=== PATIENT | male | born 1950 | race Caucasian/White ===

== ENCOUNTER → 2018-09-23 13:06 | Outpatient (CLI) | payer MEDICARE, SELFPAY ==
[2018-09-23 14:35] LABS: Basophils % 0.3 % (0.1-2.0); Eosinophils # 0.4 K/mm3 (0.0-0.4); Eosinophils % 5.9 % (0.1-12.0); Hematocrit 43.7 % (42.0-52.0); Hemoglobin 14.5 g/dL (14.1-18.0); Lymphocytes # 1.6 K/mm3 (0.7-4.5); Lymphocytes % 25.3 % (10-50); Mean Corpuscular HGB Conc 33.2 g/dL (31.8-35.4); Mean Corpuscular Hemoglobin 30.8 pg (27.0-31.2); Mean Corpuscular Volume 92.6 fl (80-94); Mean Platelet Volume 8.5 fl (7.4-10.4); Monocytes # 0.3 K/mm3 (0.1-1.0); Monocytes % 4.2 % (1.7-9.3); Neutrophils # 4.1 K/mm3 (1.8-7.8); Neutrophils % 64.3 % (37.0-80.0); Platelet Count 324 K/mm3 (142-424); Red Blood Count 4.72 M/mm3 (4.60-6.20); Red Cell Distribution Width 12.9 % (11.5-17.5); White Blood Count 6.3 K/mm3 (4.8-10.8)
[2018-09-23 15:36] LABS: Alanine Aminotransferase 32 U/L (12-78); Albumin Level 3.2 gm/dL (3.4-5.0); Albumin/Globulin Ratio 0.9 (1.1-1.8); Alkaline Phosphatase 100 U/L (46-116); Aspartate Amino Transferase 17 U/L (15-37); Bilirubin,Total 0.6 mg/dL (0.2-1.0); Blood Urea Nitrogen 19 mg/dL (7-18); Calcium 8.7 mg/dL (8.5-10.1); Carbon Dioxide 25 mmol/L (21.0-32.0); Chloride 103 mmol/L (98-107); Creatinine,Serum 1.25 mg/dL (0.70-1.30); Estimated Glomerular Filt Rate 58 ml/min (>60); GFR (African American) 70 ML/MIN (>60); Globulin 3.6 gm/dl (1.3-3.2); Glucose 93 mg/dL (74-106); Sodium 139 mmol/L (136-145); Total Protein,Serum 6.8 gm/dL (6.4-8.2)
== END ==
PROVIDERS: Visit Provider Family Medicine
DX: Z51.81 Encounter for therapeutic drug level monitoring (principal); Z79.01 Long term (current) use of anticoagulants
CPT/HCPCS: 36415; 80053; 85025

== ENCOUNTER → 2020-05-25 16:58 | Outpatient (CLI) | payer MEDICARE, SELFPAY ==
[2020-05-25 18:13] LABS: Alanine Aminotransferase 24 U/L (12-78); Albumin Level 4.4 g/dl (3.5-5.0); Albumin/Globulin Ratio 1.5 (1.1-1.8); Alkaline Phosphatase 112 U/L (38-126); Anion Gap 14.3 mEq/L (5-15); Aspartate Amino Transferase 24 U/L (17-59); Bilirubin,Total 0.7 mg/dl (0.2-1.3); Blood Urea Nitrogen 21 mg/dl (9-20); Carbon Dioxide 26 mmol/L (22.0-30.0); Chloride 102 mmol/L (98-107); Chol/HDL Ratio 3.2 (1-3.5); Cholesterol 139 mg/dl (140-200); Estimated Glomerular Filt Rate 74 ml/min (>60); GFR (African American) 90 ML/MIN (>60); Glucose 113 mg/dl (74-100); HDL Cholesterol 44 mg/dl (40-60); Potassium 4.3 mmoL/L (3.5-5.1); Sodium 138 mmol/L (136-145); Total Protein,Serum 7.4 g/dl (6.3-8.2); Triglycerides 117 mg/dl (30-150); VLDL Cholesterol 23 mg/dL (0-40)
[2020-05-25 18:24] LABS: Basophils # 0.1 K/mm3 (0-0.2); Basophils % 1.1 % (0.1-2.0); Direct LDL Cholesterol 73.31 mg/dL (100-129); Eosinophils # 0.7 K/mm3 (0.0-0.4); Eosinophils % 6.5 % (0.1-12.0); Hematocrit 49.7 % (42.0-52.0); Hemoglobin 15.9 g/dL (14.1-18.0); Lymphocytes # 3.1 K/mm3 (0.7-4.5); Lymphocytes % 29.1 % (10-50); Mean Corpuscular Volume 97.1 fl (80-94); Mean Platelet Volume 9.9 fl (7.4-10.4); Monocytes # 0.5 K/mm3 (0.1-1.0); Monocytes % 5.1 % (1.7-9.3); Neutrophils # 6.1 K/mm3 (1.8-7.8); Neutrophils % 58.2 % (37.0-80.0); Platelet Count 300 K/mm3 (142-424); Red Blood Count 5.12 M/mm3 (4.60-6.20); Red Cell Distribution Width 13.6 % (11.5-17.5); White Blood Count 10.5 K/mm3 (4.8-10.8)
[2020-05-25 20:37] LABS: 25-OH Vitamin D, Total 38.4 ng/mL (30-100)
[2020-05-27 10:20] LABS: PSA, Free 0.34 ng/mL; Prostate Specific Ag 0.8 ng/mL (0.0-4.0)
[2020-05-29 20:06] LABS: Testosterone, Total, LC/MS 200.7 ng/dL (264.0-916.0); Testosterone,Free 4.1 pg/mL (6.6-18.1)
== END ==
PROVIDERS: Visit Provider Family Medicine
DX: I25.10 Atherosclerotic heart disease of native coronary artery without angina pectoris (principal); J44.9 Chronic obstructive pulmonary disease, unspecified; E55.9 Vitamin D deficiency, unspecified; E29.1 Testicular hypofunction; M54.40 Lumbago with sciatica, unspecified side; Z95.5 Presence of coronary angioplasty implant and graft; Z86.73 Personal history of transient ischemic attack (TIA), and cerebral infarction without residual deficits
CPT/HCPCS: 80053; 80061; 82306; 84153; 84154; 84402; 84403; 85025

== ENCOUNTER → 2020-11-26 14:02 | Outpatient (CLI) | payer MEDICARE, SELFPAY ==
[2020-11-26 14:19] LABS: Basophils # 0.1 K/mm3 (0-0.2); Basophils % 1.2 % (0.1-2.0); Eosinophils # 0.8 K/mm3 (0.0-0.4); Eosinophils % 7.6 % (0.1-12.0); Hemoglobin 15.8 g/dL (14.1-18.0); Lymphocytes # 3.2 K/mm3 (0.7-4.5); Lymphocytes % 29.1 % (10-50); Mean Corpuscular HGB Conc 32.9 g/dL (31.8-35.4); Mean Corpuscular Volume 91.3 fl (80-94); Mean Platelet Volume 9.5 fl (7.4-10.4); Monocytes # 0.5 K/mm3 (0.1-1.0); Monocytes % 4.8 % (1.7-9.3); Neutrophils # 6.2 K/mm3 (1.8-7.8); Neutrophils % 57.3 % (37.0-80.0); Platelet Count 256 K/mm3 (142-424); Red Blood Count 5.26 M/mm3 (4.60-6.20); Red Cell Distribution Width 13.4 % (11.5-17.5); White Blood Count 10.9 K/mm3 (4.8-10.8)
[2020-12-02 22:18] LABS: Testosterone, Total, LC/MS 327.6 ng/dL (264.0-916.0); Testosterone,Free 6.7 pg/mL (6.6-18.1)
== END ==
PROVIDERS: Visit Provider Family Medicine
DX: J44.9 Chronic obstructive pulmonary disease, unspecified (principal); Z00.00 Encounter for general adult medical examination without abnormal findings
CPT/HCPCS: 84402; 84403; 85025

== ENCOUNTER → 2021-10-01 16:51 | Outpatient (CLI) | payer MEDICARE, SELFPAY ==
[2021-10-01 13:07] LABS: Basophils # 0.1 K/mm3 (0-0.2); Basophils % 1.3 % (0.1-2.0); Eosinophils # 0.8 K/mm3 (0.0-0.4); Eosinophils % 8.3 % (0.1-12.0); Hematocrit 43.5 % (42.0-52.0); Lymphocytes # 2.8 K/mm3 (0.7-4.5); Lymphocytes % 28.2 % (10-50); Mean Corpuscular HGB Conc 34.6 g/dL (31.8-35.4); Mean Corpuscular Volume 95.2 fl (80-94); Mean Platelet Volume 9.9 fl (7.4-10.4); Monocytes # 0.6 K/mm3 (0.1-1.0); Monocytes % 5.8 % (1.7-9.3); Neutrophils # 5.6 K/mm3 (1.8-7.8); Neutrophils % 56.5 % (37.0-80.0); Platelet Count 269 K/mm3 (142-424); Red Blood Count 4.56 M/mm3 (4.60-6.20); Red Cell Distribution Width 13.4 % (11.5-17.5); White Blood Count 9.9 K/mm3 (4.8-10.8)
[2021-10-01 13:44] LABS: Chloride 105 mmol/L (98-107); Potassium 4.2 mmoL/L (3.5-5.1); Sodium 137 mmol/L (136-145)
[2021-10-01 13:46] LABS: Blood Urea Nitrogen 17 mg/dl (9-20); Estimated Glomerular Filt Rate 83 ml/min (>60); GFR (African American) 101 ML/MIN (>60)
[2021-10-01 13:47] LABS: Alanine Aminotransferase 26 U/L (12-78); Albumin Level 4.1 g/dl (3.5-5.0); Albumin/Globulin Ratio 1.6 (1.1-1.8); Alkaline Phosphatase 96 U/L (38-126); Anion Gap 14.2 mEq/L (5-15); Aspartate Amino Transferase 26 U/L (17-59); Bilirubin,Total 0.6 mg/dl (0.2-1.3); Calcium 9.8 mg/dl (8.4-10.2); Carbon Dioxide 22 mmol/L (22.0-30.0); Chol/HDL Ratio 3.2 (1-3.5); Cholesterol 126 mg/dl (140-200); Globulin 2.6 g/dL (1.3-3.2); Glucose 112 mg/dl (74-100); HDL Cholesterol 40 mg/dl (40-60); Total Protein,Serum 6.7 g/dl (6.3-8.2); Triglycerides 109 mg/dl (30-150); VLDL Cholesterol 22 mg/dL (0-40)
[2021-10-01 14:24] LABS: Direct LDL Cholesterol 61.17 mg/dL (100-129)
[2021-10-01 14:44] LABS: Prostate Specific Ag Screen 0.8 ng/ml (0.0-4.0)
== END ==
PROVIDERS: PCP Family Medicine; Visit Provider Family Medicine
DX: Z12.5 Encounter for screening for malignant neoplasm of prostate (principal); I25.10 Atherosclerotic heart disease of native coronary artery without angina pectoris
CPT/HCPCS: 80053; 80061; 85025; G0103

== ENCOUNTER 2022-03-22 11:15 | Day surgery (SDC) | payer MEDICARE, SELFPAY ==
[2022-03-17 13:13] VITALS: BMI 37.1
[2022-03-22] VITALS (7 sets, daily range): BP systolic 162–173; BP diastolic 73–89; PULSE 66–71; RESP 16–18; TEMP 36.2–36.4; O2SAT 97–100
== END 2022-03-22 14:40 | disposition home or self-care (01) ==
PROVIDERS: PCP Family Medicine; Visit Provider Ophthalmology
DX: H25.813 Combined forms of age-related cataract, bilateral (principal)
CPT/HCPCS: 66984; V2632

== ENCOUNTER 2022-04-05 07:49 | Day surgery (SDC) | payer MEDICARE, SELFPAY ==
[2022-04-01 11:11] VITALS: BMI 36.9
[2022-04-05] VITALS (7 sets, daily range): BP systolic 140–166; BP diastolic 62–86; PULSE 57–69; RESP 16–18; TEMP 36.4–36.6; O2SAT 97–100
== END 2022-04-05 10:35 | disposition home or self-care (01) ==
PROVIDERS: PCP Family Medicine; Visit Provider Ophthalmology
DX: H25.813 Combined forms of age-related cataract, bilateral (principal); Z79.899 Other long term (current) drug therapy
CPT/HCPCS: 66984; V2632

== ENCOUNTER → 2022-06-23 10:05 | Outpatient (CLI) | payer MEDICARE, SELFPAY ==
--- NOTE | 2022-06-23 10:06 | MR_ITS ---
FINAL REPORT CLINICAL HISTORY: Impingement erosive OA. RIGHT SHOULDER PAIN. LIMITED ROM. WEAKNESS IN ARM. PATIENT UNABLE TO SUPINATE HAND. FINDINGS: Multi planar MR imaging of the right shoulder was performed. There is superior subluxation of the humeral head in relation to the bony glenoid. There is complete disruption of the supraspinatus tendon with approximately 5 cm of tendon retraction. The infraspinatus tendon is intact. There is no abnormal fluid in the subacromial/subdeltoid bursa. The anterior and posterior glenoid maye appear intact. The biceps tendon appears intact. There are marked hypertrophic changes of the AC joint. IMPRESSION: Complete disruption with 5 cm retraction of the supraspinatus tendon. Marked hypertrophic changes of the AC joint. Reviewed, Interpreted and Dictated by Chip Arora MD Transcribed by Britta Singh Authenticated and [facility]
== END ==
PROVIDERS: PCP Family Medicine; Visit Provider Family Medicine
DX: M15.4 Erosive (osteo)arthritis (principal); M25.811 Other specified joint disorders, right shoulder
CPT/HCPCS: 73221

== ENCOUNTER → 2022-08-19 13:57 | Outpatient (CLI) | payer MEDICARE, SELFPAY ==
[2022-08-19 14:39] LABS: Alanine Aminotransferase 23 U/L (12-78); Albumin Level 3.9 g/dl (3.5-5.0); Albumin/Globulin Ratio 1.7 (1.1-1.8); Alkaline Phosphatase 78 U/L (38-126); Aspartate Amino Transferase 26 U/L (17-59); Bilirubin,Total 0.7 mg/dl (0.2-1.3); Blood Urea Nitrogen 27 mg/dl (9-20); Calcium 8.7 mg/dl (8.4-10.2); Carbon Dioxide 25 mmol/L (22.0-30.0); Chloride 103 mmol/L (98-107); Chol/HDL Ratio 4.1 (1-3.5); Cholesterol 111 mg/dl (140-200); Estimated Glomerular Filt Rate 50 ml/min (>60); GFR (African American) 60 ML/MIN (>60); Globulin 2.3 g/dL (1.3-3.2); Glucose 119 mg/dl (74-100); HDL Cholesterol 27 mg/dl (40-60); Sodium 133 mmol/L (136-145); Total Protein,Serum 6.2 g/dl (6.3-8.2); Triglycerides 140 mg/dl (30-150); VLDL Cholesterol 28 mg/dL (0-40)
[2022-08-19 14:50] LABS: Direct LDL Cholesterol 62.57 mg/dL (100-129)
[2022-08-19 16:06] LABS: Basophils # 0.1 K/mm3 (0-0.2); Basophils % 0.8 % (0.1-2.0); Eosinophils # 0.8 K/mm3 (0.0-0.4); Eosinophils % 8.7 % (0.1-12.0); Hematocrit 40.5 % (42.0-52.0); Hemoglobin 13.6 g/dL (14.1-18.0); Lymphocytes # 2.4 K/mm3 (0.7-4.5); Lymphocytes % 26.8 % (10-50); Mean Corpuscular HGB Conc 33.6 g/dL (31.8-35.4); Mean Corpuscular Hemoglobin 31.8 pg (27.0-31.2); Mean Corpuscular Volume 94.6 fl (80-94); Monocytes # 0.5 K/mm3 (0.1-1.0); Monocytes % 5.4 % (1.7-9.3); Neutrophils # 5.2 K/mm3 (1.8-7.8); Neutrophils % 58.3 % (37.0-80.0); Platelet Count 220 K/mm3 (142-424); Red Blood Count 4.27 M/mm3 (4.60-6.20); Red Cell Distribution Width 13.1 % (11.5-17.5); White Blood Count 8.9 K/mm3 (4.8-10.8)
== END ==
PROVIDERS: PCP Family Medicine; Visit Provider Family Medicine
DX: E78.5 Hyperlipidemia, unspecified (principal); I25.10 Atherosclerotic heart disease of native coronary artery without angina pectoris; J44.9 Chronic obstructive pulmonary disease, unspecified
CPT/HCPCS: 80053; 80061; 85025

== ENCOUNTER → 2022-08-19 14:07 | Outpatient (CLI) | payer MEDICARE, SELFPAY | PROVIDERS: PCP Family Medicine; Visit Provider Family Medicine | DX: N40.0 Benign prostatic hyperplasia without lower urinary tract symptoms (principal) ==

== ENCOUNTER → 2022-11-30 09:49 | Outpatient (CLI) | payer MEDICARE, SELFPAY ==
--- NOTE | 2022-11-30 09:52 | CA_ITS ---
FINAL REPORT TECHNIQUE: Color Doppler, duplex Doppler and rivera scale sonography of the bilateral neck arterial vasculature was performed. Velocities were measured in the carotid arteries. Stenosis evaluation based on the validated velocity criteria. CLINICAL HISTORY: WILMAN, HTN, hyperlipidemia, CAD, history of smoking, COPD. FINDINGS: The peak systolic velocity of the right common carotid artery is 82 cm/s. The peak systolic velocity of the right internal carotid artery is 106 cm/s and end diastolic velocity 30 cm/s. The ICA/CCA ratio is 1.3. A small amount of plaque is present. The right external carotid artery is patent. The right vertebral artery is patent with antegrade flow. The peak systolic velocity of the left common carotid artery is 91 cm/s. The peak systolic velocity of the left internal carotid artery is 98 cm/s and end diastolic velocity 26 cm/s. The ICA/CCA ratio is 1.1. A small amount of plaque is present. The left external carotid artery is patent.The left vertebral artery is patent with antegrade flow. IMPRESSION: Less than 50% bilateral carotid stenoses. Bilateral patent vertebral arteries with antegrade flow. If indicated, CTA or MRA could further evaluate. Reviewed, Interpreted and Dictated by Ekaterina Corona MD Transcribed by Keisha Henley Authenticated and [facility]
--- NOTE | 2022-11-30 10:39 | NM_ITS ---
APPROVED REPORT Exam: Nuclear Stress Test Indication: chest pain..short of breath Patient Location: Outpatient Stress Tech: Evelyn Steve HERMAN Tech:Gwen LindsaySAVANNAH RT(R)(N) Ht: 5 ft 6 in Wt: 230 lbs HR: 63 bpm BP: 181/88 mmHg BSA: 2.12 m2 Rhythm: NSR TID: 1.04 BMI: 37.1 History: chest pain..soa Procedure: Patient received 0.4 mg of intravenous Lexiscan, resting heart rate 63 bpm, resting blood pressure 181/88 mmHg, with Lexiscan maximum heart rate achieved was 79 bpm which is 85 % of the maximum predicted heart rate and blood pressure was 210/91 mmHg. With Lexiscan, patient denied any complaint of chest pain. Cardiac Stress and Resting SPECT Images: Cardiac Stress and Resting SPECT images were obtained using technetium 99m Myoview 32.8 mCi stress and 10.48 mCi at rest. Resting and stress perfusion imaging in both supine and prone positions demonstrate no evidence of fixed or reversible perfusion defects. Gated imaging demonstrates normal global and regional LV systolic function. LVEF is calculated at 66%. Conclusion: No evidence of fixed or reversible perfusion defects. Gated imaging demonstrates normal global and regional LV systolic function. LVEF is calculated at 66%. Electronically signed by : Jelena García, 11/30/2022 23:31:25
--- NOTE | 2022-11-30 10:39 | CA_ITS ---
APPROVED REPORT Exam: Pharmacologic Technologist: Evelyn Wilson Ht: 5 ft 6 in Wt: 233 lbs BSA: 2.13 m2 HR: 63 bpm BP: 181/88 mmHg Rhythm: NSR Indications: CP Medical History Medications: Amlodipine,,,,, Clonidine,,,,, Asa,,,,, Losartan,,,,, Atorvastatin,,,,, Carvedilol,,,,, Albuterol,,,,, CloPIdogrel,,,,, Nitroglycerin,,,,, TizanDINE,,,,, Trelegy Ellipta,,,,, MVI,,,,, Stress Test Details Test: LEXISCAN HR Resting HR: 63 bpm Max Heart Rate (APMHR): 149 bpm Max HR Achieved: 79 bpm Target HR (85% APMHR): 127 bpm % of APMHR: 53 Recovery HR: 73 bpm BP Resting BP: 181.0/88.0 mmHg Max BP: 210.0/91.0 mmHg Recovery BP: 180.0/80.0 mmHg ECG Resting ECG: Normal sinus rhythm, right bundle branch block Clinical Exercise duration: 04:03 min Highest Stage Achieved: Exercise capacity: n/a METs Stress ECG Conclusion Symptoms: Shortness of air, chest and head discomfort. Arrhythmias/Ectopy: None ST-T Changes: No significant changes Conclusion: Unremarkable Lexiscan stress. Myoview images reported separately. Test Summary REST . . . . . . . Resting REST 07:57 . . 63 . 181/ 88 . . Stage 1 . . . . . . . Myoview Injected Stage 1 01:00 . . 71 . . . . Stage 2 01:00 . . 77 . . . . Stage 3 . . . . . . . Chest pain Stage 3 01:00 . . 77 . 198/ 86 . . Stage 4 01:00 . . 76 . 188/ 96 . . Stage 4 01:03 . . 75 . 188/ 96 . Stop exercise at 04:03 RECOVERY 01:00 . . 75 . 210/ 91 . . RECOVERY 02:00 . . 77 . 210/ . . RECOVERY 03:00 . . 72 . 210/ . . RECOVERY 04:00 . . 70 . 205/ . . RECOVERY 05:00 . . 74 . 210/ 80 . . RECOVERY 06:00 . . 76 . 210/ 80 . . RECOVERY 06:36 . . 72 . 210/ 80 . . Electronically signed by : Jelena García, 11/30/2022 23:29:50
== END ==
PROVIDERS: PCP Family Medicine; Visit Provider Nurse Practitioner Family
DX: E78.5 Hyperlipidemia, unspecified (principal); R00.1 Bradycardia, unspecified; Z86.73 Personal history of transient ischemic attack (TIA), and cerebral infarction without residual deficits; Z95.5 Presence of coronary angioplasty implant and graft; I20.8 Other forms of angina pectoris; I65.23 Occlusion and stenosis of bilateral carotid arteries
CPT/HCPCS: 78452; 93017; 93306; 93880; A9502; J2785

== ENCOUNTER → 2022-12-06 11:37 | Outpatient (CLI) | payer MEDICARE, SELFPAY ==
[2022-12-06 12:07] LABS: Basophils # 0.1 K/mm3 (0-0.2); Basophils % 0.7 % (0.1-2.0); Eosinophils % 10.1 % (0.1-12.0); Hematocrit 41.4 % (42.0-52.0); Hemoglobin 13.4 g/dL (14.1-18.0); Lymphocytes # 2.4 K/mm3 (0.7-4.5); Lymphocytes % 24.9 % (10-50); Mean Corpuscular HGB Conc 32.5 g/dL (31.8-35.4); Mean Corpuscular Hemoglobin 30.9 pg (27.0-31.2); Mean Corpuscular Volume 95.1 fl (80-94); Mean Platelet Volume 9.6 fl (7.4-10.4); Monocytes # 0.6 K/mm3 (0.1-1.0); Neutrophils # 5.6 K/mm3 (1.8-7.8); Neutrophils % 58.2 % (37.0-80.0); Platelet Count 232 K/mm3 (142-424); Red Blood Count 4.35 M/mm3 (4.60-6.20); Red Cell Distribution Width 13.5 % (11.5-17.5); White Blood Count 9.6 K/mm3 (4.8-10.8)
[2022-12-06 13:36] LABS: Alanine Aminotransferase 24 U/L (12-78); Alkaline Phosphatase 81 U/L (38-126); Anion Gap 10.6 mEq/L (5-15); Aspartate Amino Transferase 27 U/L (17-59); Bilirubin,Indirect 0.6 mg/dL (0.0-0.9); Bilirubin,Total 0.6 mg/dl (0.2-1.3); Bilirubin,Unconjugated 0.7 mg/dL (0.0-1.1); Blood Urea Nitrogen 29 mg/dl (9-20); Calcium 9.3 mg/dl (8.4-10.2); Carbon Dioxide 27 mmol/L (22.0-30.0); Chloride 106 mmol/L (98-107); Chol/HDL Ratio 3.1 (1-3.5); Cholesterol 120 mg/dl (140-200); Estimated Glomerular Filt Rate 43 ml/min (>60); GFR (African American) 52 ML/MIN (>60); Glucose 96 mg/dl (74-100); HDL Cholesterol 39 mg/dl (40-60); Magnesium 2.1 mg/dl (1.6-2.3); Potassium 4.6 mmoL/L (3.5-5.1); Sodium 139 mmol/L (136-145); Total Protein,Serum 6.5 g/dl (6.3-8.2); Triglycerides 129 mg/dl (30-150); VLDL Cholesterol 26 mg/dL (0-40)
[2022-12-06 13:47] LABS: Direct LDL Cholesterol 60.95 mg/dL (100-129)
[2022-12-06 13:51] LABS: Free T4 (Free Thyroxine) 0.97 ng/dl (0.78-2.19)
== END ==
PROVIDERS: PCP Family Medicine; Visit Provider Internal Medicine
DX: E78.5 Hyperlipidemia, unspecified (principal); E87.1 Hypo-osmolality and hyponatremia; I10 Essential (primary) hypertension; I65.29 Occlusion and stenosis of unspecified carotid artery; R00.1 Bradycardia, unspecified; R06.00 Dyspnea, unspecified; Z71.6 Tobacco abuse counseling; Z86.73 Personal history of transient ischemic attack (TIA), and cerebral infarction without residual deficits; Z95.5 Presence of coronary angioplasty implant and graft; I20.8 Other forms of angina pectoris
CPT/HCPCS: 36415; 80048; 80061; 80076; 83735; 84439; 84443; 85025

== ENCOUNTER → 2022-12-21 23:09 | Outpatient (CLI) | payer MEDICARE, SELFPAY ==
[2022-12-21 18:49] LABS: Alanine Aminotransferase 24 U/L (12-78); Albumin Level 4.1 g/dl (3.5-5.0); Albumin/Globulin Ratio 1.5 (1.1-1.8); Alkaline Phosphatase 95 U/L (38-126); Aspartate Amino Transferase 29 U/L (17-59); Bilirubin,Total 0.6 mg/dl (0.2-1.3); Blood Urea Nitrogen 26 mg/dl (9-20); Calcium 9.2 mg/dl (8.4-10.2); Carbon Dioxide 29 mmol/L (22.0-30.0); Chloride 105 mmol/L (98-107); Estimated Glomerular Filt Rate 43 ml/min (>60); GFR (African American) 52 ML/MIN (>60); Globulin 2.7 g/dL (1.3-3.2); Glucose 105 mg/dl (74-100); Sodium 140 mmol/L (136-145); Total Protein,Serum 6.8 g/dl (6.3-8.2)
== END ==
PROVIDERS: PCP Family Medicine; Visit Provider Family Medicine
DX: N28.9 Disorder of kidney and ureter, unspecified (principal)
CPT/HCPCS: 80053

== ENCOUNTER 2023-02-23 14:17 | Inpatient (IN) | payer MEDICARE, SELFPAY ==
[2023-02-23] VITALS (7 sets, daily range): BP systolic 133–179; BP diastolic 44–84; PULSE 41–50; RESP 16–23; TEMP 36.7–37.3; O2SAT 88–92; BMI 36.8
--- NOTE | 2023-02-23 14:39 | PC.NURSE ---
pt admitted to 218 from MD Walker's office, awaiting orders to be placed
--- NOTE | 2023-02-23 14:42 | EXP.CARD.CON ---
History of Present Illness History of Present Illness Consult date: 02/23/23 Requesting physician: Tristan Plascencia Chief complaint: Syncope, second-degree AV block Additional Medical History:: 1. CAD is present. A. RACQUEL 2011 at [facility]. B. On Plavix. C. Normal myoview in 11/2022. D Echo, 11/2022, EF 60-65% with no significant valve disease. 2. HTN- BP stable. 3. Hx of CVA.(2016) A. carotid artery u/s, 11/2022: Less than 50% bilateral carotid stenoses. 4 LDL goal is < 55. On statin. A. LDL 62 (2022) 5. Former smoker. 6. Syncope A. EKG is SR with 2nd degree AV block, with 2:1 AV conduction, RBBB, rate is 39 bpm. History of present illness: 72-year-old white male seen in the office today for syncope with bradycardia. EKG shows second-degree AV block with 2-1 conduction at a rate of 39 bpm. Patient is subsequently admitted for placement of pacemaker in a.[facility] Disclaimer: The information contained in this section may have been updated after the patient was seen, as this information can be updated by other users. Medical History COPD (chronic obstructive pulmonary disease) Dyspnea History of transient ischemic attack (TIA) Hx of cataract Hyperlipidemia Hypertension Hypertension Hyponatremia Sinus bradycardia Stenosis of carotid artery Typical angina Surgical History History of coronary artery stent placement 2011 Hx of cataract surgery Hx of hernia repair Hx of shoulder surgery Family History Other Family history of cancer Social History Smoking Status: Former smoker alcohol intake: never substance use type: denies use current occupational status: employed and retired Travel in the last 8 weeks: None household members: spouse housing: house Review of Systems Review of Systems Review of systems:: pertinent systems reviewed and negative unless documented below *Cardiovascular Cardiovascular: Reports chest pain and Reports dyspnea on exertion *Respiratory Respiratory: Reports dyspnea on exertion Exam Constitutional Constitutional: no acute distress *Routine Respiratory Exam Respiratory: Present CTA bilaterally *Routine Cardiovascular Exam Cardiovascular: Present bradycardia; Absent murmur, gallop or rubs *Routine Extremities Exam Extremities: Absent edema *Routine Neurological Exam Neurological: Present alert, oriented X3 and CN II-XII intact Meds Home Medications and Allergies Home Medications Medication Instructions Recorded Confirmed Type amlodipine 10 mg tablet 10 mg PO DAILY bp 11/28/19 02/23/23 History aspirin 81 mg tablet,delayed 81 mg PO DAILY CAD 11/28/19 02/23/23 History release (Adult Aspirin Regimen) atorvastatin 40 mg tablet 40 mg PO DAILY hld 11/28/19 02/23/23 History latanoprost 0.005 % eye drops 1 drp ophthalmic (eye) DIRECTED 11/28/19 02/23/23 History cataract losartan 100 mg tablet 100 mg PO DAILY bp 11/28/19 02/23/23 History clonidine HCl 0.1 mg tablet 0.1 mg PO TID bp 03/17/22 02/23/23 History albuterol sulfate 2.5 mg/3 mL See Rx Instructions .Route 07/04/22 02/23/23 Rx (0.083 %) solution for nebulization .COMPLEX #540 mL clopidogrel 75 mg tablet 75 mg PO DAILY stents #90 tabs 10/14/22 02/23/23 Rx fluticasone fur. 200 mcg-umeclid 1 inh inhalation DAILY #60 ea 10/21/22 02/23/23 Rx 62.5 mcg-vilant 25 mcg inhalat.powder (Trelegy Ellipta) albuterol sulfate 90 mcg/actuation See Rx Instructions .Route 11/02/22 02/23/23 Rx aerosol inhaler (Ventolin HFA) .COMPLEX COPD #8.5 grams multivitamin with minerals-folic 1 tab PO DAILY 11/21/22 02/23/23 History acid 80 mcg chewable tablet (Centrum Adult 50 Plus) nitroglycerin 0.4 mg sublingual 0.4 mg sublingual Q5M PRN chest 11/21/22 02/23/23 Rx tablet pain #
--- NOTE | 2023-02-23 15:17 | PC.NURSE ---
pt with sinus aki on monitor HR 40-45 upon arrival, pt to have pacemaker placed tomorrow, educated pt about nothing to eat or drink after midnight placed 20G Left AC and shavonne labs and sent to lab informed MD Plascencia that pt is in [address] orders
--- NOTE | 2023-02-23 15:37 | EXP.HP ---
History of Present Illness *Admission Date: 02/23/23 *Reason for visit:: Chief complaint: Slow heart rate *History of present illness: This is a 72-year-old male that presents to his custodial foreman office at the request of his PCP for a slow heart rate (HR 39). His past medical history is significant for COPD, TIA, hypertension and coronary artery disease. He reports several weeks of lightheadedness characterized as dizzy. He identifies fatigue and general malaise. He denies tachypalpitations. He denies confusion, syncopal episodes or falls. He does endorse shortness of air with strenuous activities. He has identified some chest pain characterized as pressure both at rest and with activity. He went to see his custodial foreman today and they recommended admission and possible pacemaker insertion. His ECG identified sinus rhythm with second-degree AV block with 2-1, right bundle branch block, rate 39 and QTc 483 MS. [facility] Medical History (Updated 02/23/23 @ 17:53 by Tristan Plascencia MD) COPD (chronic obstructive pulmonary disease) History of transient ischemic attack (TIA) Hx of cataract Hyperlipidemia Hypertension Sinus bradycardia Stenosis of carotid artery Surgical History History of coronary artery stent placement Hx of cataract surgery Hx of hernia repair Hx of shoulder surgery Family History Other Family history of cancer Social History (Updated 02/23/23 @ 16:21 by Felipa Cho RN) Smoking Status: Former smoker alcohol intake: never substance use type: denies use current occupational status: employed and retired Travel in the last 8 weeks: None household members: spouse housing: house Review of Systems Review of Systems Review of systems:: pertinent systems reviewed and negative unless documented below Constitutional Constitutional: Denies headache(s) ENT Ears, Nose, Mouth, and Throat: Reports dizziness and Denies headache(s) *Cardiovascular Cardiovascular: Reports chest pain, Reports chest pain at rest, Reports dyspnea and Reports dyspnea on exertion *Respiratory Respiratory: Reports dyspnea and Reports dyspnea on exertion *Neurologic Neurologic: Reports dizziness and Denies headache(s) Meds Home Medications and Allergies Home Medications Medication Instructions Recorded Confirmed Type aspirin 81 mg tablet,delayed 81 mg PO DAILY Heart Health 11/28/19 02/23/23 History release (Adult Aspirin Regimen) multivitamin with minerals-folic 1 tab PO DAILY Supplement 11/21/22 02/23/23 History acid 80 mcg chewable tablet (Centrum Adult 50 Plus) methylprednisolone 4 mg tablets in See Rx Instructions PO PER PKG DIR 02/22/23 02/23/23 Rx a dose pack (Medrol (Robert)) #21 tabs albuterol sulfate 90 mcg/actuation 2 puff inhalation Q6HP PRN 02/23/23 02/23/23 History aerosol inhaler (Ventolin HFA) Shortness Of Breath amlodipine 10 mg tablet 10 mg PO DAILY High Blood Pressure 02/23/23 02/23/23 History atorvastatin 40 mg tablet 40 mg PO DAILY Cholesterol 02/23/23 02/23/23 History cefdinir 300 mg capsule 300 mg PO BID Infection 02/23/23 02/23/23 History clopidogrel 75 mg tablet 75 mg PO DAILY Platelet Inhibitor 02/23/23 02/23/23 History fluticasone fur. 200 mcg-umeclid 1 inh inhalation DAILY Breathing 02/23/23 02/23/23 History 62.5 mcg-vilant 25 mcg Problems inhalat.powder (Trelegy Ellipta) hydrocodone 7.5 mg-acetaminophen 1 tab PO Q8HP PRN Moderate Pain 02/23/23 02/23/23 History 325 mg tablet (Scale Score 5-6) losartan 100 mg tablet 100 mg PO DAILY High Blood Pressure 02/23/23 02/23/23 History nitroglycerin 0.4 mg sublingual 0.4 mg sublingual Q5MINP PRN chest 02/23/23 02/23/23 History tablet pain tizanidine 4 mg tablet 4 mg PO Q8HP PRN Muscle Pain 02/23/23 02/23/23 History New Prescriptions to Start Prescriptions: Allergies Allergy/AdvReac Type Severity Reaction S
[2023-02-23 15:53] LABS: Basophils # 0.1 K/mm3 (0-0.2); Basophils % 0.4 % (0.1-2.0); Eosinophils # 0.4 K/mm3 (0.0-0.4); Hematocrit 37.3 % (42.0-52.0); Hemoglobin 12.7 g/dL (14.1-18.0); Lymphocytes # 2.5 K/mm3 (0.7-4.5); Mean Corpuscular Volume 94.1 fl (80-94); Mean Platelet Volume 10.4 fl (7.4-10.4); Monocytes # 0.6 K/mm3 (0.1-1.0); Monocytes % 3.9 % (1.7-9.3); Neutrophils # 10.4 K/mm3 (1.8-7.8); Neutrophils % 74.6 % (37.0-80.0); Platelet Count 209 K/mm3 (142-424); Red Blood Count 3.96 M/mm3 (4.60-6.20); Red Cell Distribution Width 13.1 % (11.5-17.5); White Blood Count 13.9 K/mm3 (4.8-10.8)
--- NOTE | 2023-02-23 15:53 | HMH.PHAINT1 ---
Pharmacy Intervention Comments: MEDICATION RECONCILIATION COMPLETED ON PATIENT USING EXTERNAL FILL HISTORY FROM PHARMACY AND LIST FROM CARDIOLOGY OFFICE. -CARLOS CARBALLO, JOHND
[2023-02-23 15:55] LABS: Alanine Aminotransferase 23 U/L (12-78); Albumin Level 3.6 g/dl (3.5-5.0); Albumin/Globulin Ratio 1.1 (1.1-1.8); Alkaline Phosphatase 48 U/L (38-126); Anion Gap 28.2 mEq/L (5-15); Aspartate Amino Transferase 50 U/L (17-59); Bilirubin,Total 1.3 mg/dl (0.2-1.3); Blood Urea Nitrogen 20 mg/dl (9-20); Carbon Dioxide 21 mmol/L (22.0-30.0); Chloride 97 mmol/L (98-107); Chol/HDL Ratio 5.3 (1-3.5); Cholesterol 95 mg/dl (140-200); Creatinine Clearance Estimated 71 mL/min (50-200); Estimated Glomerular Filt Rate 50 ml/min (>60); GFR (African American) 60 ML/MIN (>60); Globulin 3.3 g/dL (1.3-3.2); Glucose 103 mg/dl (74-100); HDL Cholesterol 18 mg/dl (40-60); Magnesium 2.1 mg/dl (1.6-2.3); Potassium 5.2 mmoL/L (3.5-5.1); Sodium 141 mmol/L (136-145); Total Protein,Serum 6.9 g/dl (6.3-8.2); Triglycerides 150 mg/dl (30-150); VLDL Cholesterol 30 mg/dL (0-40)
[2023-02-23 15:57] LABS: INR 1.08 (0.9-1.1); Prothrombin Time 11.6 seconds (10.1-12.5)
[2023-02-23 16:06] LABS: Direct LDL Cholesterol 56.55 mg/dL (100-129)
--- NOTE | 2023-02-23 16:16 | PC.NURSE ---
COURTESY NOTE: rounded on pt. pt has no requests at this time.
--- NOTE | 2023-02-23 16:23 | PC.NURSE ---
pt set up password [email or web address]
--- NOTE | 2023-02-23 18:13 | PC.NURSE ---
COURTESY TECH: rounded on pt after dinner. pt denies any assistance at this time.
--- NOTE | 2023-02-23 18:48 | ECG_ITS ---
APPROVED REPORT Exam: Resting ECG HR:45 bpm ECG Measurements Heart Rate 45 AXES QRSd 133 QRS 52 QT 506 T 62 QTc 463 Conclusion SINUS BRADYCARDIA WITH 2ND DEGREE AV BLOCK, 2:1 OR MOBITZ TYPE II RIGHT BUNDLE BRANCH BLOCK [120+ ms QRS DURATION, UPRIGHT V1, 40+ ms S IN I/aVL/V4/V5/V6] CRITICAL TEST RESULT UNCONFIRMED REPORT Electronically signed by : Deandre Dave MD 02/25/2023 11:04:29
[2023-02-24] VITALS (21 sets, daily range): BP systolic 156–202; BP diastolic 64–97; PULSE 38–90; RESP 14–90; TEMP 36.6–37.3; O2SAT 90–94; BMI 36.6
--- NOTE | 2023-02-24 | IR_ITS ---
APPROVED REPORT Patient Location: Inpatient Data Security Analyst: SAVANNAH Mccarty RT (R) PROCEDURES 1. Pocket formation for Permanent Pacemaker Placement. 2. Placement of an atrial sensing and pacing coil into the right atrial appendage. 3. Placement of a ventricular sensing and pacing coil in the right ventricular apex. 4. Permanent Pacemaker Placement. INDICATION SECOND DEGREE AV BLOCK. Informed consent was obtained prior to the procedure. COMPLICATIONS None Estimated Blood Loss: Less than 10 ml TECHNIQUE 1% Lidocaine with epinephrine used to anesthetized the left anterior aspect of the chest. Scalpel was used to make the initial cutaneous incision while electrocautery was used to dissect down tinto the fascia. The fascia was lifted off the pectoralis muscle and digitally manipulated creating a pocket for the pacemaker. The patient was then placed in Trendelenburg position and the subclavian vein was accessed twice via the Selinger technique, there are two wires in the vein. A 6 Pakistani sheath was placed under fluoroscopic guidance into the subclavian vein over one of the wires while keeping the other wire in place within the subclavian vein. The dilator was removed from the sheath. Using fluoroscopic guidance, the ventricular lead was placed into the right ventricular apex, screwed and secured into place. Electronic interrogation proved acceptable thresholds and voltage within the lead. Using 3-0 silk, the ventricular lead was then secured into place. Lead was secured to the facia using the 3-0 silk. Following this, the sheath was pealed away. An additional 6 Pakistani fresh sheath and dilator was placed over the existing wire. Using fluoroscopic guidance, the atrial lead was the placed into the right atrial appendage and screwed and secured in place. Electrical interrogation demonstrated acceptable thresholds and voltage number. The atrial lead was then secured into place using 3-0 silk. 1 gram of Ancef was used to flush the pocket. Following the pacemaker generator being secured to the fascia and in place, Monocryl was used to close the subcutaneous layers while romi were used to close the cutaneous layer. A pressure dressing was placed and the patient was transferred to the postop holding area in stable condition for postoperative care. INTERROGATION Generator Model number: [employer] [id number] Generator Serial number: [id number] Atrial lead model number: TENDRIL STS 2088TC Atrial lead serial number: [id number] P-wave: 2.0 mV Impedence: 400 OHMS Threshold: 1.0V @ 0.4ms Right Ventricular lead model number: CLAYTON STS 8TC Right Ventricular lead serial number: [id number] R-wave: 10 mV Impedence: 530 OHMS Threshold: 0.5V @ 0.4 ms Pacing Parameters: Mode: DDDR Base/Max Track:60 ppm / 130 ppm No diaphragmatic stimulation at 10 volts. IMPRESSION 1. Successful pocket formation for Permanent Pacemaker Placement. 2. Successful placement of an atrial sensing and pacing coil into the right atrial appendage. 3. Successful placement of a ventricular sensing and pacing coil in the right ventricular apex. 4. Successful permanent Pacemaker Placement. PLAN 1. Postop wound care. Electronically signed by : Eladio Walker MD 03/02/2023 13:52:48
--- NOTE | 2023-02-24 08:00 | CA_ITS ---
APPROVED REPORT EXAM: Limited 2D Echocardiogram Assistant Professor Of Philosophy: Aundrea Mauro CRT Ht: 5 ft 6 in Wt: 228lbs BSA: 2.11 BP: 115/56 mmHg Indications: EF check, pre pacemaker placement, bradycardia, stents, CVA, bradycardia , EF 60-65% 11/28/22 2D Dimensions LVOT 2.02 cm (M/F) 1.5-2.5 M-Mode Dimensions RVDd 2.37 cm (0.9-2.6) LA Diam 4.32 cm (1.9-4.0) LVDd 5.27 cm (3.5-5.7) Ao Diam 3.55 cm (2.0-3.7) LVDs 3.58 cm (3.5-5.7) IVSd 1.13 cm (0.6-1.1) PWd 1.01 cm (0.6-1.1) EF (Teich) 59.80% FS 32.10% EDV (Teich) 133.60 mL ESV (Teich) 53.70 mL Other Information Study Quality: Adequate Conclusion This is a limited TTE to evaluate for LVEF in the setting of planned PPM placement. The left ventricle appears normal in size and systolic function. There are no segmental wall motion abnormalities. LVEF is 65%. The right ventricle appears mildly dilated. There is normal RV systolic function. The atria are normal in size. Electronically signed by : Jelena García MD 02/24/2023 11:32:15
--- OUTSIDE RECORDS SUMMARY | 2023-02-24 09:01 | XMS_ITS | Continuity of Care Document ---
Author Name Unknown Organization [facility] Address [address] [facility] [address] [place] [address] Phone Care Team Providers Care Plate Cutter Name Role Phone [facility], [facility] Unavailable Unavailable Procedures Procedure Date INJ FORAMEN EPIDURAL L/S INJ FORAMEN EPIDURAL ADD-ON Lidocaine injection BUPIVACAINE NO EPI .5% PER 1 ML 022 Betamethasone acet&sod phosp Sodium chloride injection Omnipaque 300-399/ml 1ml INJ FORAMEN EPIDURAL L/S INJ FORAMEN EPIDURAL ADD-ON Lidocaine injection BUPIVACAINE NO EPI .5% PER 1 ML 022 Betamethasone acet&sod phosp Omnipaque 300-399/ml 1ml SARAPIN 1 ML Advance Directives Directive Yes / No Effective Date File Name No Information Encounters Encounter Description Practice Location Reason(s) For Visit Diagnoses Date Provider Providers Copied on Encounter [facility], [address] [facility] [place], [address], [place] tel:[phone] [facility] No Information
--- OUTSIDE RECORDS SUMMARY | 2023-02-24 09:02 | XMS_ITS | Continuity of Care Document ---
Author Name Unknown Organization [facility] Address [address] [place] [address] Phone Care Team Providers Care Clinical Operations Leader Name Role Phone Sreedhar Morse MD Unavailable Unavailable Allergies, Adverse Reactions, Alerts Substance Reaction Status Criticality No Known Drug Allergies Active No I nformation Medications Medication Instructions Dosage Effective Dates (start - stop) Status Comments Benadryl 25 mg capsule take 1 capsule by oral route every 4 - 6 hours as needed 25 MG - Active Proventil HFA 90 mcg/actuation aerosol inhaler inhale 1 puff by inhalation route every 4 - 6 hours as needed - Active latanoprost 0.005 % eye drops instill 1 drop by ophthalmic route every day into affected eye(s) in the evening 1.00 drop - Active Mucinex Cold,Flu and Sore Throat 10 mg-20 mg-650 mg/20 mL oral liquid - Active as needed multivitamin tablet take 1 tablet by oral route every day with food - Active Sudafed 12 Hour 120 mg tablet,extended release take 1 tablet by oral route every 12 hours 120 MG - Active clonidine HCl 0.1 mg tablet take 1 tablet by oral route 2 times every day as needed for HTN - Active amlodipine 2.5 mg tablet take 1 tablet by oral route every day 2.5 MG -
--- NOTE | 2023-02-24 09:51 | EXP.CARD.PN ---
Subjective Subjective Date: 02/24/23 Time: 09:52 Principal diagnosis: Symptomatic bradycardia with type II AV block Interval history: 72-year-old white male in bed in no acute distress. Plans are for permanent pacemaker placement today. Limited echocardiogram will be obtained to confirm ejection fraction prior to placement of device. Telemetry continues to show heart rate in the low 40 bpm range Exam Data for Last 24 hours Vital signs and Labs for Last 24 Hours: Temp Pulse Resp BP Pulse Ox O2 Del Method O2 Flow Rate 99.2 F 45 L 15 179/84 H 93 L Nasal Cannula 2 02/24/23 07:59 02/24/23 06:00 02/24/23 06:00 02/23/23 22:00 02/24/23 06:00 02/24/23 07:00 02/24/23 07:00 Laboratory Results - last 24 hr 02/23/23 15:15: WBC 13.9 H, RBC 3.96 L, Hgb 12.7 L, Hct 37.3 L, MCV 94.1 H, MCH 32.0 H, MCHC 34.0, RDW 13.1, Plt Count 209, MPV 10.4, Neut % (Auto) 74.6, Lymph % (Auto) 18.0, [place] % (Auto) 3.9, Eos % (Auto) 3.0, Baso % (Auto) 0.4, Neut # (Auto) 10.4 H, Lymph # (Auto) 2.5, [place] # (Auto) 0.6, Eos # (Auto) 0.4, Baso # (Auto) 0.1, PT 11.6, INR 1.08, Sodium 141, Potassium 5.2 H, Chloride 97 L, Carbon Dioxide 21 L, Anion Gap 28.2 H, BUN 20, Creatinine 1.40 H, Estimated Creat Clear 71, Estimated GFR 50 L, Est GFR ( Amer) 60, Glucose 103 H, Calcium 7.0 L, Magnesium 2.1, Total Bilirubin 1.3, AST 50, ALT 23, Alkaline Phosphatase 48, Total Protein 6.9, Albumin 3.6, Globulin 3.3 H, Albumin/Globulin Ratio 1.1, Triglycerides 150, Cholesterol 95 L, LDL Cholesterol Direct 56.55 L, VLDL Cholesterol 30, HDL Cholesterol 18 L, Cholesterol/HDL Ratio 5.3 H I & O for Last 24 hours: Intake & Output 02/21/23 02/22/23 02/23/23 02/24/23 11:59 11:59 11:59 11:59 Intake Total 1074 / 1074 Output Total 600 / 600 Balance 474 / 474 Weight 228 lb 0.738 oz Constitutional Constitutional: no acute distress *Routine Respiratory Exam Respiratory: Present CTA bilaterally *Routine Cardiovascular Exam Cardiovascular: Present RRR and bradycardia Progress Note: A&P Assessment and plan (1) Symptomatic bradycardia: Status: Acute (2) 2nd degree AV block: Status: Acute (3) CAD (coronary artery disease): Status: Chronic (4) Chronic kidney disease, stage 3a: Status: Acute (5) Hypertension: Status: Acute (6) COPD (chronic obstructive pulmonary disease): Status: Acute Assessment and Plan Assessment and Plan for All Diagnoses:: 1. Second-degree AV block with history of syncope Limited echo this a.m. to confirm ejection fraction Needs biventricular pacemaker since it is highly anticipated that he will pace more than 40% of the time in the ventricle. 2. Hypertension, controlled Hold Coreg and clonidine at this time and resume post pacer implantation Continue losartan and amlodipine 3. CAD with prior coronary stenting, clinically stable Recent stress test and echo essentially normal Continue aspirin therapy Hold Plavix to minimize bleeding. Resume in one week. 4. History of tobacco use Check chest x-ray 5. CKD, stage III Baseline creatinine 1.4-1.6 with GFR 43-50 6. Hyperlipidemia, continue statin therapy Recent LDL 61 Anticipate discharge home later today with follow-up in our office in 1 week. Home med recommendations: Amlodipine 10 mg daily Aspirin 81 mg daily Atorvastatin 40 mg daily Losartan 100 mg daily Resume carvedilol 3.125 mg twice daily Okay to hold Plavix for now to reduce risk of bleeding into the pacemaker pocket
--- NOTE | 2023-02-24 10:39 | EXP.ANES.CKL ---
[facility] Disclaimer: The information contained in this section may have been updated after the patient was seen, as this information can be updated by other users. Medical History (Updated 02/23/23 @ 17:53 by Tristan Plascencia MD) COPD (chronic obstructive pulmonary disease) History of transient ischemic attack (TIA) Hx of cataract Hyperlipidemia Hypertension Sinus bradycardia Stenosis of carotid artery Surgical History History of coronary artery stent placement Hx of cataract surgery Hx of hernia repair Hx of shoulder surgery Family History Other Family history of cancer Social History (Updated 02/23/23 @ 16:21 by Felipa Cho RN) Smoking Status: Former smoker alcohol intake: never substance use type: denies use current occupational status: employed and retired Travel in the last 8 weeks: None household members: spouse housing: house [facility] Anesthesia Checklist Patient Identification Patient Identification: Arm Band Structural Data Admitted From: Home Planned Operative Procedure/s: Biventricular Pacemaker Consent for Planned Operative Procedure(s) Verified: Yes Verified Documents: Surgical Consent and History and Physical NPO Status Verified Time NPO: 00:00 Additional verifications Anesthesia Reactions: No Airway Assessment Mallampati Score:: Class II C-Spine Mobility Assessed: Yes TMJ Mobility Assessed: Yes Dentition: Edentulous Neurological Assessment Level of Consciousness: Awake and Alert Anesthesia Plan Anesthesia Risk discussed: Yes Anesthesia Plan: Verified ASA Class: IV Anesthesia Type: MAC
--- NOTE | 2023-02-24 11:55 | PC.NURSE ---
notified MD Plascencia that pt's bp on monitor was 202/88 and manual bp was 188/70, no new orders at this time
[2023-02-24 11:58] LABS: Basophils # 0.1 K/mm3 (0-0.2); Basophils % 0.3 % (0.1-2.0); Eosinophils # 0.4 K/mm3 (0.0-0.4); Eosinophils % 2.6 % (0.1-12.0); Hemoglobin 12.8 g/dL (14.1-18.0); Lymphocytes # 2.4 K/mm3 (0.7-4.5); Lymphocytes % 15.4 % (10-50); Mean Corpuscular HGB Conc 32.8 g/dL (31.8-35.4); Mean Corpuscular Hemoglobin 31.1 pg (27.0-31.2); Mean Corpuscular Volume 94.7 fl (80-94); Mean Platelet Volume 10.8 fl (7.4-10.4); Monocytes # 0.5 K/mm3 (0.1-1.0); Monocytes % 3.5 % (1.7-9.3); Neutrophils % 78.1 % (37.0-80.0); Platelet Count 293 K/mm3 (142-424); Red Blood Count 4.12 M/mm3 (4.60-6.20); Red Cell Distribution Width 13.1 % (11.5-17.5); White Blood Count 15.4 K/mm3 (4.8-10.8)
--- NOTE | 2023-02-24 12:25 | PC.NURSE ---
arrived to floor by stretcher from cath lab nurse
[2023-02-24 12:36] LABS: MANUAL DIFFERENTIAL MANUAL DIFFERENTIAL (MANUAL DIFF)
--- NOTE | 2023-02-24 12:36 | PC.NURSE ---
pt tranporting to garage laborer for pacemaker placement via stretcher with garage laborer RN's
[2023-02-24 13:27] LABS: Anion Gap 14.3 mEq/L (5-15); Blood Urea Nitrogen 21 mg/dl (9-20); Calcium 8.8 mg/dl (8.4-10.2); Carbon Dioxide 26 mmol/L (22.0-30.0); Chloride 102 mmol/L (98-107); Creatinine Clearance Estimated 62 mL/min (50-200); Estimated Glomerular Filt Rate 43 ml/min (>60); GFR (African American) 52 ML/MIN (>60); Glucose 116 mg/dl (74-100); Potassium 3.3 mmoL/L (3.5-5.1); Sodium 139 mmol/L (136-145)
--- NOTE | 2023-02-24 13:56 | XR_ITS ---
FINAL REPORT CLINICAL HISTORY: post pacemaker placement FINDINGS: SINGLE-VIEW CHEST There is cardiomegaly. Left subclavian pacer is identified. The mediastinum is normal. There are bibasilar opacities, may represent atelectasis or pneumonia. There is no pneumothorax. IMPRESSION: Bibasilar atelectasis versus pneumonia. Reviewed, Interpreted and Dictated by Bar Wright III, MD Transcribed by Keisha Henley Authenticated and . [facility]
--- NOTE | 2023-02-24 13:57 | SUR.PHASEII ---
called and spoke with Julio in radiology regarding xray need.
[2023-02-24 13:58] LABS: Thyroid Stimulating Hormone 1.27 uIU/mL (0.465-4.68)
--- NOTE | 2023-02-24 13:59 | SUR.PHASEII ---
radiology at bedside.
--- NOTE | 2023-02-24 14:30 | PC.NURSE ---
pt back from component lab tech, pacer site to left upper chest with dressing cdi
[2023-02-24 15:03] LABS: Lymphocytes % 13 % (10-50); Monocytes % 5 % (2-9); Neutrophils % 82 % (42-76); Platelet Estimate Normal; RBC Morphology Normal; Total Cells Counted 100
--- NOTE | 2023-02-24 15:35 | PC.NURSE ---
notified MD Plascencia that pt's bp has stayed hypertensive after pacemaker placed and settled into 218MD to order home med regimen
--- NOTE | 2023-02-24 17:08 | EXP.DC.SUM ---
General Admission date:: 02/23/23 Discharge date: 02/24/23 HPI HPI HPI: This is a 72-year-old male that presents to his singer songwriter office at the request of his PCP for a slow heart rate (HR 39). His past medical history is significant for COPD, TIA, hypertension and coronary artery disease. He reports several weeks of lightheadedness characterized as dizzy. He identifies fatigue and general malaise. He denies tachypalpitations. He denies confusion, syncopal episodes or falls. He does endorse shortness of air with strenuous activities. He has identified some chest pain characterized as pressure both at rest and with activity. He went to see his singer songwriter today and they recommended admission and possible pacemaker insertion. His ECG identified sinus rhythm with second-degree AV block with 2-1, right bundle branch block, rate 39 and QTc 483 MS. Hospital Course Hospital Course Hospital Course: The patient was admitted to the telemetry unit with cardiology consultation. His laboratory studies and inflammatory markers were trended. He was maintained on his anti-hypertensive medications. A limited echo identified an LVEF 65%. He underwent pacemaker placement and received postoperative care instructions. He identified improvement and inquired about discharge home. I spent 35 minutes in [id number] time with the patient and nursing staff concerning the discharge process. We discussed the admitting diagnoses and hospital course. We discussed identified improvement and the patient's desire to be discharged. We reviewed inpatient studies and imaging. The patient voiced understanding on the importance of follow-up with his primary care provider and singer songwriter. The patient plans to be compliant with the medication regimen prescribed and follow-up appointments. He understands that he can return to the emergency department with any sudden changes or concerns. Exam Data for Last 24 hours Vital signs and Labs for Last 24 Hours: Temp Pulse Resp BP Pulse Ox O2 Del Method O2 Flow Rate 98.3 F 90 15 184/95 H 90 L Nasal Cannula 4 02/24/23 12:00 02/24/23 16:30 02/24/23 16:30 02/24/23 16:30 02/24/23 16:30 02/24/23 16:30 02/24/23 16:30 Laboratory Results - last 24 hr 02/24/23 06:10: WBC 15.4 H, RBC 4.12 L, Hgb 12.8 L, Hct 39.0 L, MCV 94.7 H, MCH 31.1, MCHC 32.8, RDW 13.1, Plt Count 293 D, MPV 10.8 H, Neut % (Auto) 78.1, Lymph % (Auto) 15.4, [place] % (Auto) 3.5, Eos % (Auto) 2.6, Baso % (Auto) 0.3, Neut # (Auto) 12.0 H, Lymph # (Auto) 2.4, [place] # (Auto) 0.5, Eos # (Auto) 0.4, Baso # (Auto) 0.1, Total Counted 100, Neutrophils % (Manual) 82 H, Lymphocytes % (Manual) 13, Monocytes % (Manual) 5, Platelet Estimate Normal, RBC Morphology Normal, Sodium 139, Potassium 3.3 L D, Chloride 102, Carbon Dioxide 26, Anion Gap 14.3, BUN 21 H, Creatinine 1.60 H, Estimated Creat Clear 62, Estimated GFR 43 L, Est GFR ( Amer) 52 L, Glucose 116 H, Calcium 8.8, TSH 1.27 I & O for Last 24 hours: Intake & Output 02/21/23 02/22/23 02/23/23 02/24/23 23:59 23:59 23:59 23:59 Intake Total 630 / 1074 684 / 684 Output Total 0 / 300 600 / 600 Balance 630 / 774 84 / 84 Weight 103.447 kg 103.44 kg Constitutional Constitutional: no acute distress *Routine Respiratory Exam Respiratory: Present CTA bilaterally *Routine Cardiovascular Exam Cardiovascular: Present RRR Results Data Completed and Pending Labs on day of discharge: Labs from last 24 hours 02/24/23 06:10 WBC 15.4 H RBC 4.12 L Hgb 12.8 L Hct 39.0 L MCV 94.7 H MCH 31.1 MCHC 32.8 RDW 13.1 Plt Count 293 D MPV 10.8 H Neut % (Auto) 78.1 Lymph % (Auto) 15.4 [place] % (Auto) 3.5 Eos % (Auto) 2.6 Baso % (Auto) 0.3 Neut # (Auto) 12.0 H Lymph # (Auto) 2.4 [place] # (Auto) 0.5 Eos # (Auto) 0.4 Baso # (Auto) 0.1 Total Counted 100 Neutrophils % (Manual) 82 H Lymphocytes % (Manual) 13 Monocytes % (Manual) 5 Platelet Estimate Normal RBC Morph
--- NOTE | 2023-02-28 14:12 | CARE MANAGER ---
Contacted patient related to hospital discharge. He states there was an issue with his pain medication but his PCP got them called in. He denied any other issues or concerns. WANDER Kamara
== END 2023-02-24 17:57 | disposition home or self-care (01) | DRG 244 ==
PROVIDERS: Internal Medicine; Admitting Provider Family Medicine; PCP Family Medicine; Visit Provider Family Medicine
PROC: 0JH606Z Insertion of Pacemaker, Dual Chamber into Chest Subcutaneous Tissue and Fascia, Open Approach (ICD-10-PCS; principal; 2023-02-24 11:30)
DX: I44.1 Atrioventricular block, second degree (principal); I25.10 Atherosclerotic heart disease of native coronary artery without angina pectoris; N18.31 Chronic kidney disease, stage 3a; J44.9 Chronic obstructive pulmonary disease, unspecified; Z86.73 Personal history of transient ischemic attack (TIA), and cerebral infarction without residual deficits; Z95.5 Presence of coronary angioplasty implant and graft; I12.9 Hypertensive chronic kidney disease with stage 1 through stage 4 chronic kidney disease, or unspecified chronic kidney disease; E78.5 Hyperlipidemia, unspecified
CPT/HCPCS: 33208; 36415; 71045; 80048; 80053; 80061; 83735; 84443; 85007; 85025; 85610; 93005; 93308; 94640; C1785; C1898; J2704

== ENCOUNTER → 2023-03-30 23:43 | Outpatient (CLI) | payer MEDICARE, SELFPAY ==
[2023-03-30 21:33] LABS: Alanine Aminotransferase 24 U/L (12-78); Albumin Level 4.3 g/dl (3.5-5.0); Albumin/Globulin Ratio 1.6 (1.1-1.8); Anion Gap 15.2 mEq/L (5-15); Aspartate Amino Transferase 30 U/L (17-59); Bilirubin,Total 0.4 mg/dl (0.2-1.3); Blood Urea Nitrogen 30 mg/dl (9-20); Calcium 9.3 mg/dl (8.4-10.2); Carbon Dioxide 22 mmol/L (22.0-30.0); Chloride 106 mmol/L (98-107); Estimated Glomerular Filt Rate 35 ml/min (>60); GFR (African American) 42 ML/MIN (>60); Globulin 2.7 g/dL (1.3-3.2); Glucose 111 mg/dl (74-100); Potassium 4.2 mmoL/L (3.5-5.1); Sodium 139 mmol/L (136-145)
[2023-03-30 22:03] LABS: Prostate Specific Ag Screen 3.9 ng/ml (0.0-4.0); Thyroid Stimulating Hormone 2.63 uIU/mL (0.465-4.68)
[2023-03-30 22:37] LABS: Alkaline Phosphatase 92 U/L (38-126)
== END ==
PROVIDERS: PCP Family Medicine; Visit Provider Family Medicine
DX: Z09 Encounter for follow-up examination after completed treatment for conditions other than malignant neoplasm (principal); Z12.5 Encounter for screening for malignant neoplasm of prostate
CPT/HCPCS: 80053; 84443; G0103

== ENCOUNTER → 2023-05-01 11:23 | Outpatient (CLI) | payer MEDICARE, SELFPAY ==
--- NOTE | 2023-05-01 11:27 | XR_ITS ---
FINAL REPORT CLINICAL HISTORY: atrial lead dislodgment, pacemaker placed feb 24, 2023. COPD. SOA. COMPARISON: 02/24/2023 FINDINGS: 2 views of the chest were obtained . Pacemaker is in place. Aorta is unfolded. The heart is mildly enlarged. The mediastinum is within normal limits. There is scarring at the lung bases. The lungs are otherwise clear. There is no pneumothorax. Osseous structures are unremarkable. IMPRESSION: No acute cardiopulmonary process. Reviewed, Interpreted and Dictated by Chip Arora MD Transcribed by Britta Singh Authenticated and . [facility]
[2023-05-01 12:43] LABS: Chloride 102 mmol/L (98-107); Potassium 4.5 mmoL/L (3.5-5.1); Sodium 138 mmol/L (136-145)
[2023-05-01 12:46] LABS: Alanine Aminotransferase 21 U/L (12-78); Albumin Level 4.5 g/dl (3.5-5.0); Alkaline Phosphatase 86 U/L (38-126); Anion Gap 12.5 mEq/L (5-15); Aspartate Amino Transferase 28 U/L (17-59); Bilirubin,Direct 0.1 mg/dl (0.0-0.4); Bilirubin,Indirect 0.7 mg/dL (0.0-0.9); Bilirubin,Total 0.8 mg/dl (0.2-1.3); Bilirubin,Unconjugated 0.7 mg/dL (0.0-1.1); Blood Urea Nitrogen 25 mg/dl (9-20); Calcium 9.4 mg/dl (8.4-10.2); Carbon Dioxide 28 mmol/L (22.0-30.0); Chol/HDL Ratio 3.5 (1-3.5); Cholesterol 147 mg/dl (140-200); Estimated Glomerular Filt Rate 40 ml/min (>60); GFR (African American) 48 ML/MIN (>60); Glucose 108 mg/dl (74-100); HDL Cholesterol 42 mg/dl (40-60); Total Protein,Serum 7.4 g/dl (6.3-8.2); Triglycerides 133 mg/dl (30-150); VLDL Cholesterol 27 mg/dL (0-40)
--- NOTE | 2023-05-01 12:56 | CA_ITS ---
APPROVED REPORT EXAM: Limited 2D, Doppler, and color-flow Echocardiogram County Attorney: Radha Ndiaye RDCS Ht: 5 ft 6 in Wt: 236lbs BSA: 2.15 BP: 124/57 mmHg Indications: PACER LEAD RA,LIMITED EF CK 2D Dimensions EF AP4 54.90 % GL Strain -14.5 % M-Mode Dimensions RVDd 1.82 cm (0.9-2.6) LVDd 5.93 cm (3.5-5.7) LVDs 4.58 cm (3.5-5.7) IVSd 0.85 cm (0.6-1.1) PWd 0.93 cm (0.6-1.1) EF (Teich) 45.00% FS 22.80% EDV (Teich) 175.20 mL ESV (Teich) 96.30 mL Other Information Study Quality: Fair Conclusion This is a limited TTE to evaluate for LVEF in the setting of atrial lead revision requirement. Limited windows were obtained. The left ventricle is normal in size. There is normal LV systolic function. LVEF is 60-65%. The right ventricle appears normal in size and systolic function. Compared to prior study from 02/24/2023, there are no significant changes. Electronically signed by : Jelena García MD 05/01/2023 23:01:21
[2023-05-01 12:57] LABS: Basophils # 0.1 K/mm3 (0-0.2); Basophils % 0.7 % (0.1-2.0); Eosinophils # 0.7 K/mm3 (0.0-0.4); Eosinophils % 7.8 % (0.1-12.0); Hematocrit 44.1 % (42.0-52.0); Hemoglobin 14.8 g/dL (14.1-18.0); Lymphocytes # 2.8 K/mm3 (0.7-4.5); Mean Corpuscular HGB Conc 33.6 g/dL (31.8-35.4); Mean Corpuscular Hemoglobin 31.3 pg (27.0-31.2); Mean Corpuscular Volume 93.1 fl (80-94); Mean Platelet Volume 8.8 fl (7.4-10.4); Monocytes # 0.4 K/mm3 (0.1-1.0); Monocytes % 4.3 % (1.7-9.3); Neutrophils # 5.1 K/mm3 (1.8-7.8); Neutrophils % 56.2 % (37.0-80.0); Platelet Count 241 K/mm3 (142-424); Red Blood Count 4.73 M/mm3 (4.60-6.20); Red Cell Distribution Width 14.1 % (11.5-17.5)
[2023-05-01 13:20] LABS: Free T4 (Free Thyroxine) 1.01 ng/dl (0.78-2.19)
[2023-05-01 14:14] LABS: Direct LDL Cholesterol 78.51 mg/dL (100-129)
[2023-05-01 14:35] LABS: Thyroid Stimulating Hormone 2.05 uIU/mL (0.465-4.68)
== END ==
PROVIDERS: PCP Family Medicine; Visit Provider Internal Medicine
DX: E78.5 Hyperlipidemia, unspecified (principal); I11.9 Hypertensive heart disease without heart failure; I25.10 Atherosclerotic heart disease of native coronary artery without angina pectoris; I65.29 Occlusion and stenosis of unspecified carotid artery; R06.00 Dyspnea, unspecified; Z86.73 Personal history of transient ischemic attack (TIA), and cerebral infarction without residual deficits; Z95.0 Presence of cardiac pacemaker; Z95.5 Presence of coronary angioplasty implant and graft; Z87.891 Personal history of nicotine dependence
CPT/HCPCS: 36415; 71046; 80048; 80061; 80076; 84439; 84443; 85025; 93308

== ENCOUNTER 2023-05-17 08:46 | Day surgery (SDC) | payer MEDICARE, SELFPAY ==
[2023-05-17] VITALS (10 sets, daily range): BP systolic 70–173; BP diastolic 44–91; PULSE 60–70; RESP 18; O2SAT 90–98; BMI 38.0
--- NOTE | 2023-05-17 | IR_ITS ---
APPROVED REPORT Patient Location: Outpatient Radiator Repairer: SAVANNAH Black RT (R) PROCEDURES 1. Pocket Revision 2. Restored placement of chronic right atrial lead INDICATION Right atrial lead dislodged Informed consent was obtained prior to the procedure. COMPLICATIONS None Estimated Blood Loss: Less than 10 mls TECHNIQUE 1% Lidocaine with epinephrine used to anesthetized the left anterior aspect of the chest. Scalpel was used to make the initial cutaneous incision then was used to dissect down tinto the fascia and existing pacemaker generator. The generator was removed from the existing pocket. Digital manipulation was required along with intermitten use of a scalpel to revise the pocket. The atrail lead was removed from the generator. The chronic right atrial lead, Using fluoroscopic guidance, was then placed into the right atrial appendage and screwed and secured in place. Electrical interrogation demonstrated acceptable thresholds and voltage number. The atrial lead was then secured into place using 3-0 silk. 1 gram of Ancef was used to flush the pocket. Following the pacemaker generator being secured to the fascia and in place, Monocryl was used to close the subcutaneous layers while romi were used to close the cutaneous layer. A pressure dressing was placed and the patient was transferred to the postop holding area in stable condition for postoperative care. INTERROGATION Atrial lead model number: 2088TC/52 Atrial lead serial number: [id number] Implant date: 02/24/2023 P-wave: 5mV Impedence: 530 ohms Threshold: .875V@0.4ms No diaphragmatic stimulation at 10 volts. IMPRESSION 1. Successful Pocket Revision 2. Successfully Restored placement of chronic right atrial lead PLAN 1. post op wound care, follow up office visit Electronically signed by : Eladio Walker MD 05/18/2023 12:20:32
[2023-05-17 09:43] LABS: Basophils # 0.1 K/mm3 (0-0.2); Basophils % 0.8 % (0.1-2.0); Eosinophils # 0.7 K/mm3 (0.0-0.4); Eosinophils % 8.1 % (0.1-12.0); Hematocrit 45.1 % (42.0-52.0); Hemoglobin 14.7 g/dL (14.1-18.0); Lymphocytes # 2.8 K/mm3 (0.7-4.5); Lymphocytes % 31.3 % (10-50); Mean Corpuscular HGB Conc 32.6 g/dL (31.8-35.4); Mean Corpuscular Hemoglobin 30.6 pg (27.0-31.2); Mean Corpuscular Volume 93.9 fl (80-94); Mean Platelet Volume 9.8 fl (7.4-10.4); Monocytes # 0.5 K/mm3 (0.1-1.0); Neutrophils # 4.9 K/mm3 (1.8-7.8); Neutrophils % 53.9 % (37.0-80.0); Platelet Count 218 K/mm3 (142-424); Red Cell Distribution Width 14.6 % (11.5-17.5)
[2023-05-17 09:44] LABS: Anion Gap 13.1 mEq/L (5-15); Blood Urea Nitrogen 30 mg/dl (9-20); Calcium 8.8 mg/dl (8.4-10.2); Carbon Dioxide 23 mmol/L (22.0-30.0); Chloride 106 mmol/L (98-107); Creatinine Clearance Estimated 53 mL/min (50-200); Estimated Glomerular Filt Rate 35 ml/min (>60); GFR (African American) 42 ML/MIN (>60); Glucose 125 mg/dl (74-100); Potassium 4.1 mmoL/L (3.5-5.1); Sodium 138 mmol/L (136-145)
[2023-05-17] MEDS: CEFAZOLIN 1GM VIAL 1 GM TP (11:17)
[2023-05-17] MEDS: CEFAZOLIN SODIUM 1 GM in 0.9 % SODIUM CHLORIDE 50 ML IV (11:17)
[2023-05-17] MEDS: 0.9 % SODIUM CHLORIDE 1000ML 1,000 ML 25 ML IV (11:18)
[2023-05-17] MEDS: LIDOCAINE 1% W/EPI 1:100,000 20ML VIAL 20 ML SQ (11:18)
[2023-05-17] MEDS: diphenhydrAMINE 50MG/ML VIAL 50 MG IV (11:18)
--- NOTE | 2023-05-17 11:58 | XR_ITS ---
FINAL REPORT CLINICAL HISTORY: Confirm pacemaker/AID placement COMPARISON: 05/01/2023 FINDINGS: SINGLE-VIEW CHEST The heart size is normal. The mediastinum is normal. Left subclavian pacer is identified. There are mild bibasilar opacities, favor atelectasis. There is no pneumothorax. IMPRESSION: Favor bibasilar atelectasis. Reviewed, Interpreted and Dictated by Bar Wright III, MD Transcribed by Keisha Henley Authenticated and [facility]
--- NOTE | 2023-05-17 13:34 | P.PNANES_ITS ---
[facility] Disclaimer: The information contained in this section may have been updated after the patient was seen, as this information can be updated by other users. Medical History COPD (chronic obstructive pulmonary disease) History of transient ischemic attack (TIA) Hx of cataract Hyperlipidemia Hypertension Sinus bradycardia Stenosis of carotid artery Surgical History History of coronary artery stent placement RACQUEL 2011 Hx of cataract surgery Hx of hernia repair Hx of shoulder surgery Family History Other Family history of cancer Social History Smoking Status: Former smoker alcohol intake: never substance use type: denies use current occupational status: employed and retired Travel in the last 8 weeks: None household members: spouse housing: house [facility] Anesthesia Checklist Patient Identification Patient Identification: Verbal (Name & ) Structural Data Admitted From: Home Planned Operative Procedure/s: pacemaker Consent for Planned Operative Procedure(s) Verified: Yes Additional verifications Anesthesia Reactions: No Hx Blood Transfusions: No Blood Transfusion Reaction: No Airway Assessment Mallampati Score:: Class II C-Spine Mobility Assessed: Yes TMJ Mobility Assessed: Yes Dentition: Dentures-good fit Neurological Assessment Level of Consciousness: Awake, Alert and Appropriate Anesthesia Plan Anesthesia Risk discussed: Yes Anesthesia Plan: Verified ASA Class: III Anesthesia Type: MAC
== END 2023-05-17 13:26 | disposition home or self-care (01) ==
PROVIDERS: PCP Family Medicine; Visit Provider Internal Medicine
DX: T82.120A Displacement of cardiac electrode, initial encounter (principal); I10 Essential (primary) hypertension; E78.5 Hyperlipidemia, unspecified; I25.10 Atherosclerotic heart disease of native coronary artery without angina pectoris; I65.23 Occlusion and stenosis of bilateral carotid arteries; Z79.899 Other long term (current) drug therapy; Y83.1 Surgical operation with implant of artificial internal device as the cause of abnormal reaction of the patient, or of later complication, without mention of misadventure at the time of the procedure; I44.1 Atrioventricular block, second degree; Z95.0 Presence of cardiac pacemaker; I25.2 Old myocardial infarction
CPT/HCPCS: 33215; 71045; 80048; 85025

== ENCOUNTER 2023-07-03 13:51 | Outpatient (CLI) | payer MEDICARE, SELFPAY ==
--- NOTE | 2023-07-03 13:59 | XR_ITS ---
FINAL REPORT TECHNIQUE: Chest PA & Lateral CLINICAL HISTORY: atrial lead dislodgement COMPARISON: 05/17/2023 FINDINGS: 2 views of the chest were performed. The heart size is normal. Left-sided pacer is present. The mediastinum is within normal limits. There is no acute cardiopulmonary process. There are no pleural effusions. There is no pneumothorax. The bony thorax appears intact. IMPRESSION: No acute cardiopulmonary process. Reviewed, Interpreted and Dictated by Chip Arora MD Transcribed by Mini Root Authenticated and [facility]
== END 2023-07-03 23:59 ==
LOC: RAD 13:53
PROVIDERS: PCP Family Medicine; Visit Provider Physician Assistant
DX: T82.120A Displacement of cardiac electrode, initial encounter (principal)
CPT/HCPCS: 71046

== ENCOUNTER 2023-07-11 08:37 | Day surgery (SDC) | payer MEDICARE, SELFPAY ==
[2023-07-11] VITALS (8 sets, daily range): BP systolic 125–198; BP diastolic 79–121; PULSE 60–77; RESP 18–20; TEMP 36.9; O2SAT 92–95; BMI 38.2
--- NOTE | 2023-07-11 07:08 | IR_ITS ---
APPROVED REPORT Patient Location: Outpatient Tiller Man: SAVANNAH Mccarty RT (R) PROCEDURES 1. Pocket Revision 2. Removal of chronic right atrial lead 3. Insertion of permanent right atrial lead INDICATION Dislodgement of right atrial lead. Informed consent was obtained prior to the procedure. COMPLICATIONS NONE Estimated Blood Loss: LESS THAN 10 ML TECHNIQUE 1% Lidocaine with epinephrine used to anesthetized the left anterior aspect of the chest. Scalpel was used to make the initial cutaneous incision then was used to dissect down tinto the fascia and existing pacemaker generator. The generator was removed from the existing pocket. Digital manipulation was required along with intermitten use of a scalpel to revise the pocket. The atrail lead was removed from the generator. The chronic right atrial lead was removed. The patient was then placed in Trendelenburg position and the subclavian vein was accessed once via the Selinger technique, there is one wire in the vein. A 6 [place] sheath was placed under fluoroscopic guidance into the subclavian vein over the wire. The dilator was removed from the sheath. Using fluoroscopic guidance, the atrial lead was the placed into the right atrial appendage and screwed and secured in place. Electrical interrogation demonstrated acceptable thresholds and voltage number. The atrial lead was then secured into place using 3-0 silk. 1 gram of Ancef was used to flush the pocket. Following the pacemaker generator being secured to the fascia and in place,Vicryl was used to close the subcutaneous layers while romi were used to close the cutaneous layer. A pressure dressing was placed and the patient was transferred to the postop holding area in stable condition for postoperative care. INTERROGATION Atrial lead model number: Tendril STS [id number] Atrial lead serial number: [id number] P-wave: 3.9 mV Impedence: 640 Ohms Threshold: 1.5V @ 0.4ms Pacing Parameters: Mode: DDDR Base/Max Track:60 ppm / 130 ppm No diaphragmatic stimulation at 10 volts. IMPRESSION 1. Successful Pocket Revision 2. Successful Removal of chronic right atrial lead 3. Successful Insertion of permanent right atrial lead PLAN 1. Postop wound care. Electronically signed by : Eladio Walker MD 07/18/2023 12:58:41
[2023-07-11 09:34] LABS: Basophils # 0.1 K/mm3 (0-0.2); Basophils % 0.8 % (0.1-2.0); Eosinophils # 0.9 K/mm3 (0.0-0.4); Eosinophils % 7.9 % (0.1-12.0); Hematocrit 47.1 % (42.0-52.0); Lymphocytes # 2.8 K/mm3 (0.7-4.5); Lymphocytes % 25.9 % (10-50); Mean Corpuscular HGB Conc 31.8 g/dL (31.8-35.4); Mean Corpuscular Hemoglobin 31.3 pg (27.0-31.2); Mean Corpuscular Volume 98.5 fl (80-94); Mean Platelet Volume 9.4 fl (7.4-10.4); Monocytes # 0.5 K/mm3 (0.1-1.0); Monocytes % 4.7 % (1.7-9.3); Neutrophils # 6.6 K/mm3 (1.8-7.8); Neutrophils % 60.7 % (37.0-80.0); Platelet Count 214 K/mm3 (142-424); Red Blood Count 4.78 M/mm3 (4.60-6.20); Red Cell Distribution Width 14.5 % (11.5-17.5); White Blood Count 10.8 K/mm3 (4.8-10.8)
[2023-07-11 09:41] LABS: Blood Urea Nitrogen 20 mg/dl (9-20); Calcium 9.4 mg/dl (8.4-10.2); Carbon Dioxide 29 mmol/L (22.0-30.0); Chloride 108 mmol/L (98-107); Creatinine Clearance Estimated 68 mL/min (50-200); Estimated Glomerular Filt Rate 46 ml/min (>60); GFR (African American) 56 ML/MIN (>60); Glucose 111 mg/dl (74-100); Sodium 143 mmol/L (136-145)
--- NOTE | 2023-07-11 09:45 | EXP.ANES.CKL ---
[facility] Disclaimer: The information contained in this section may have been updated after the patient was seen, as this information can be updated by other users. Medical History COPD (chronic obstructive pulmonary disease) History of transient ischemic attack (TIA) Hx of cataract Hyperlipidemia Hypertension Sinus bradycardia Stenosis of carotid artery Surgical History History of coronary artery stent placement RACQUEL 2011 Hx of cataract surgery Hx of hernia repair Hx of shoulder surgery Family History Other Family history of cancer Social History Smoking Status: Former smoker alcohol intake: never substance use type: denies use current occupational status: employed and retired Travel in the last 8 weeks: None household members: spouse housing: house [facility] Anesthesia Checklist Patient Identification Patient Identification: Arm Band Structural Data Admitted From: Home Planned Operative Procedure/s: Pacemaker Lead Revision Consent for Planned Operative Procedure(s) Verified: Yes Verified Documents: Surgical Consent and History and Physical NPO Status Verified Time NPO: 00:00 Additional verifications Anesthesia Reactions: No Hx Blood Transfusions: No Blood Transfusion Reaction: No Airway Assessment Mallampati Score:: Class II C-Spine Mobility Assessed: Yes TMJ Mobility Assessed: Yes Dentition: Edentulous Neurological Assessment Level of Consciousness: Awake and Alert Anesthesia Plan Anesthesia Risk discussed: Yes Anesthesia Plan: Verified ASA Class: IV Anesthesia Type: MAC
[2023-07-11] MEDS: CEFAZOLIN SODIUM 1 GM in 0.9 % SODIUM CHLORIDE 50 ML IV (11:01)
[2023-07-11] MEDS: LIDOCAINE 1% W/EPI 1:100,000 20ML VIAL 20 ML SQ (11:02)
[2023-07-11] MEDS: CEFAZOLIN 1GM VIAL 1 GM TP (11:04)
--- NOTE | 2023-07-11 12:03 | XR_ITS ---
FINAL REPORT CLINICAL HISTORY: New pacemaker/AID placement COMPARISON: 07/03/2023 FINDINGS: SINGLE-VIEW CHEST The heart size is normal. The mediastinum is normal. Left-sided pacemaker is identified. The distal aspect of the leads are not well seen due to technique. There are low lung volumes with bibasilar opacities, favor atelectasis. There is no pneumothorax. IMPRESSION: Bibasilar opacities, favor atelectasis. Reviewed, Interpreted and Dictated by Ekaterina Corona MD Transcribed by Keisha Henley Authenticated and [facility]
== END 2023-07-11 13:56 | disposition home or self-care (01) ==
PROVIDERS: PCP Family Medicine; Visit Provider Internal Medicine
DX: T82.120A Displacement of cardiac electrode, initial encounter; I44.1 Atrioventricular block, second degree; I10 Essential (primary) hypertension; E78.5 Hyperlipidemia, unspecified; I25.10 Atherosclerotic heart disease of native coronary artery without angina pectoris; Z87.891 Personal history of nicotine dependence; Z79.899 Other long term (current) drug therapy; Y83.1 Surgical operation with implant of artificial internal device as the cause of abnormal reaction of the patient, or of later complication, without mention of misadventure at the time of the procedure
CPT/HCPCS: 33216; 71045; 80048; 85025; C1898; J2704

== ENCOUNTER 2023-07-19 14:14 | Outpatient (CLI) | payer MEDICARE, SELFPAY ==
--- NOTE | 2023-07-19 14:20 | XR_ITS ---
FINAL REPORT CLINICAL HISTORY: pacer lead replacement COMPARISON: 07/11/2023 FINDINGS: TWO-VIEW CHEST The heart size is normal. The mediastinum is normal. Left subclavian pacer is identified. There is mild left base atelectasis. There is no pneumothorax. IMPRESSION: Mild left base atelectasis. Reviewed, Interpreted and Dictated by Bar Wright III, MD Transcribed by Keisha Henley Authenticated and [facility]
== END 2023-07-19 23:59 ==
LOC: RAD 14:15
PROVIDERS: PCP Family Medicine; Visit Provider Internal Medicine
DX: T82.120A Displacement of cardiac electrode, initial encounter (principal); J98.11 Atelectasis
CPT/HCPCS: 71046

== ENCOUNTER 2023-12-01 18:34 | Outpatient (CLI) | payer MEDICARE, SELFPAY ==
[2023-12-01 19:51] LABS: Opiate Screen,Urine Positive ng/ml (<300); Phencyclidine Screen,Urine Negative ng/ml (<25)
[2023-12-01 19:53] LABS: Amphetamine/Metha Screen,Urine Negative ng/ml (<1000); Barbiturates Screen,Urine Negative ng/ml (<200)
[2023-12-01 19:54] LABS: Benzodiazepines Screen,Urine Negative ng/ml (<200)
[2023-12-01 19:57] LABS: Cannabinoid Screen,Urine Negative ng/ml (<50)
[2023-12-01 19:58] LABS: Cocaine Screen,Urine Negative ng/ml (<300); Methadone Screen,Urine Negative ng/ml (<300)
[2023-12-19 10:15] LABS: Miscellaneous Test SCANNED IMAGE
== END 2023-12-01 23:59 | disposition home or self-care (01) ==
LOC: LAB.DROPOF 18:38
PROVIDERS: PCP Family Medicine; Visit Provider Family Medicine
DX: Z79.899 Other long term (current) drug therapy (principal); R31.0 Gross hematuria
CPT/HCPCS: 80307

== ENCOUNTER 2023-12-18 19:37 | Outpatient (CLI) | payer MEDICARE, SELFPAY ==
[2023-12-18 20:08] LABS: Microscopic, Urine URINE MICROSCOPIC (MICROSCOPIC)
[2023-12-18 20:42] LABS: Appearance,Urine CLEAR (Clear); Bilirubin,Urine Negative (Negative); Blood, Urine Negative (Negative); Color,Urine YELLOW (Yellow); Glucose,Urine (UA) Negative (Negative); Ketones,Urine Negative (Negative); Leukocyte Esterase,Urine Negative (Negative); Nitrate,Urine Negative (Negative); Protein,Urine Negative (Negative); Specific Gravity, Urine 1.015 (1.005-1.030); Urobilinogen,Urine 0.2 EU/dl (0.2)
[2023-12-18 21:43] LABS: RBC,Urine Occasional #/hpf (0-3); Squamous Epithelial Cell,Urine Occasional #/hpf (0-5)
== END 2023-12-18 23:59 | disposition home or self-care (01) ==
LOC: LAB.DROPOF 19:42
PROVIDERS: PCP Family Medicine; Visit Provider Family Medicine
DX: R39.9 Unspecified symptoms and signs involving the genitourinary system (principal); R31.0 Gross hematuria
CPT/HCPCS: 81001; 88112

== ENCOUNTER 2024-01-29 14:53 | Outpatient (CLI) | payer MEDICARE, SELFPAY ==
[2024-01-29 15:38] LABS: Basophils # 0.1 K/mm3 (0-0.2); Eosinophils # 1.1 K/mm3 (0.0-0.4); Hematocrit 47.3 % (42.0-52.0); Hemoglobin 15.3 g/dL (14.1-18.0); Lymphocytes # 3.3 K/mm3 (0.7-4.5); Lymphocytes % 27.6 % (10-50); Mean Corpuscular HGB Conc 32.2 g/dL (31.8-35.4); Mean Corpuscular Hemoglobin 31.3 pg (27.0-31.2); Mean Corpuscular Volume 97.1 fl (80-94); Mean Platelet Volume 8.8 fl (7.4-10.4); Monocytes # 0.7 K/mm3 (0.1-1.0); Neutrophils # 6.7 K/mm3 (1.8-7.8); Neutrophils % 56.4 % (37.0-80.0); Platelet Count 272 K/mm3 (142-424); Red Blood Count 4.87 M/mm3 (4.60-6.20); Red Cell Distribution Width 14.1 % (11.5-17.5); White Blood Count 11.9 K/mm3 (4.8-10.8)
[2024-01-29 15:45] LABS: Albumin Level 4.1 g/dl (3.5-5.0); Chloride 104 mmol/L (98-107); Potassium 4.1 mmoL/L (3.5-5.1); Sodium 138 mmol/L (136-145)
[2024-01-29 15:48] LABS: Alanine Aminotransferase 25 U/L (12-78); Albumin/Globulin Ratio 1.6 (1.1-1.8); Alkaline Phosphatase 95 U/L (38-126); Anion Gap 9.1 mEq/L (5-15); Aspartate Amino Transferase 26 U/L (17-59); Bilirubin,Total 0.7 mg/dl (0.2-1.3); Blood Urea Nitrogen 21 mg/dl (9-20); Calcium 9.7 mg/dl (8.4-10.2); Carbon Dioxide 29 mmol/L (22.0-30.0); Chol/HDL Ratio 4.3 (1-3.5); Cholesterol 167 mg/dl (140-200); Estimated Glomerular Filt Rate 46 ml/min (>60); GFR (African American) 56 ML/MIN (>60); Globulin 2.6 g/dL (1.3-3.2); Glucose 107 mg/dl (74-100); HDL Cholesterol 39 mg/dl (40-60); Total Protein,Serum 6.7 g/dl (6.3-8.2); Triglycerides 177 mg/dl (30-150); VLDL Cholesterol 35 mg/dL (0-40)
[2024-01-29 15:59] LABS: Direct LDL Cholesterol 83.43 mg/dL (100-129)
[2024-01-29 16:18] LABS: Thyroid Stimulating Hormone 2.66 uIU/mL (0.465-4.68)
== END 2024-01-29 23:59 | disposition home or self-care (01) ==
LOC: LAB 14:56
PROVIDERS: PCP Family Medicine; Visit Provider Family Medicine
DX: I10 Essential (primary) hypertension (principal); R53.83 Other fatigue; E78.2 Mixed hyperlipidemia; Z00.00 Encounter for general adult medical examination without abnormal findings
CPT/HCPCS: 36415; 80053; 80061; 84443; 85025

== ENCOUNTER 2024-07-29 13:43 | Outpatient (CLI) | payer MEDICARE, SELFPAY ==
[2024-07-29 14:50] LABS: Basophils # 0.1 K/mm3 (0-0.2); Eosinophils # 0.5 K/mm3 (0.0-0.4); Eosinophils % 5.6 % (0.1-12.0); Hematocrit 46.5 % (42.0-52.0); Hemoglobin 15.3 g/dL (14.1-18.0); Lymphocytes # 2.4 K/mm3 (0.7-4.5); Lymphocytes % 26.2 % (10-50); Mean Corpuscular HGB Conc 32.9 g/dL (31.8-35.4); Mean Corpuscular Hemoglobin 31.2 pg (27.0-31.2); Mean Corpuscular Volume 94.7 fl (80-94); Mean Platelet Volume 11.1 fl (7.4-10.4); Monocytes # 0.8 K/mm3 (0.1-1.0); Monocytes % 8.2 % (1.7-9.3); Neutrophils # 5.5 K/mm3 (1.8-7.8); Neutrophils % 58.6 % (37.0-80.0); Platelet Count 256 K/mm3 (142-424); Red Blood Count 4.91 M/mm3 (4.60-6.20); Red Cell Distribution Width 12.9 % (11.5-17.5); White Blood Count 9.3 K/mm3 (4.8-10.8)
[2024-07-29 15:39] LABS: Albumin Level 4.6 g/dl (3.5-5.0); Chloride 102 mmol/L (98-107)
[2024-07-29 15:40] LABS: Potassium 5.5 mmoL/L (3.5-5.1); Sodium 138 mmol/L (136-145)
[2024-07-29 15:42] LABS: Alanine Aminotransferase 28 U/L (12-78); Anion Gap 10.5 mEq/L (5-15); Aspartate Amino Transferase 30 U/L (17-59); Bilirubin,Unconjugated 0.7 mg/dL (0.0-1.1); Blood Urea Nitrogen 23 mg/dl (9-20); Carbon Dioxide 31 mmol/L (22.0-30.0); Cholesterol 145 mg/dl (140-200); Estimated Glomerular Filt Rate 50 ml/min (>60); GFR (African American) 60 ML/MIN (>60); Total Protein,Serum 6.8 g/dl (6.3-8.2); Triglycerides 151 mg/dl (30-150); VLDL Cholesterol 30 mg/dL (0-40)
[2024-07-29 15:43] LABS: Alkaline Phosphatase 96 U/L (38-126); Bilirubin,Direct 0.1 mg/dl (0.0-0.4); Bilirubin,Indirect 0.6 mg/dL (0.0-0.9); Bilirubin,Total 0.7 mg/dl (0.2-1.3); Calcium 9.9 mg/dl (8.4-10.2); Chol/HDL Ratio 3.4 (1-3.5); Glucose 110 mg/dl (74-100); HDL Cholesterol 43 mg/dl (40-60)
[2024-07-29 15:52] LABS: Free T4 (Free Thyroxine) 0.93 ng/dl (0.78-2.19)
[2024-07-29 16:03] LABS: Hemoglobin A1C 6.5 % (4.0-6.0)
[2024-07-29 16:14] LABS: Thyroid Stimulating Hormone 2.96 uIU/mL (0.465-4.68)
== END 2024-07-29 23:59 | disposition home or self-care (01) ==
LOC: LAB 13:43
PROVIDERS: PCP Family Medicine; Visit Provider Internal Medicine
DX: I25.10 Atherosclerotic heart disease of native coronary artery without angina pectoris (principal); T82.120A Displacement of cardiac electrode, initial encounter; Z95.0 Presence of cardiac pacemaker; I10 Essential (primary) hypertension; I65.23 Occlusion and stenosis of bilateral carotid arteries; Z86.73 Personal history of transient ischemic attack (TIA), and cerebral infarction without residual deficits; Z95.5 Presence of coronary angioplasty implant and graft; E78.2 Mixed hyperlipidemia; Z13.1 Encounter for screening for diabetes mellitus
CPT/HCPCS: 36415; 80048; 80061; 80076; 83036; 83735; 84439; 84443; 85025

== ENCOUNTER 2024-10-25 11:30 | Outpatient (CLI) | payer MEDICARE, SELFPAY ==
[2024-10-25 18:19] LABS: Albumin Level 4.1 g/dl (3.5-5.0); Chloride 103 mmol/L (98-107); Potassium 3.7 mmoL/L (3.5-5.1); Sodium 138 mmol/L (136-145)
[2024-10-25 18:22] LABS: Alanine Aminotransferase 29 U/L (12-78); Albumin/Globulin Ratio 1.6 (1.1-1.8); Alkaline Phosphatase 100 U/L (38-126); Anion Gap 9.7 mEq/L (5-15); Aspartate Amino Transferase 31 U/L (17-59); Bilirubin,Total 0.8 mg/dl (0.2-1.3); Blood Urea Nitrogen 29 mg/dl (9-20); Calcium 9.7 mg/dl (8.4-10.2); Carbon Dioxide 29 mmol/L (22.0-30.0); Estimated Glomerular Filt Rate 54 ml/min (>60); GFR (African American) 65 ML/MIN (>60); Globulin 2.5 g/dL (1.3-3.2); Glucose 133 mg/dl (74-100); Total Protein,Serum 6.6 g/dl (6.3-8.2)
[2024-10-25 18:23] LABS: Magnesium 2.3 mg/dl (1.6-2.3)
[2024-10-25 19:01] LABS: HIV Combo NEGATIVE (Negative)
[2024-10-25 19:44] LABS: Prostate Specific Ag Screen 1.2 ng/ml (0.0-4.0)
[2024-10-25 19:50] LABS: Hepatitis C Ab Qual. W/ RFX NEGATIVE (Negative)
--- OUTSIDE RECORDS SUMMARY | 2024-10-25 22:46 | XMS_ITS | Clinical Summary ---
Author Organization [facility] Address [address] [place] [address] Phone Care Team Providers Care Trade Promotion Analyst Name Role Phone Gene FRAZIER, [facility] Conditions or Problems Problem Name Problem Code Onset Date Status Entry Date Provider Comment Standard Description Annotate DEGENERATIVE DISC DISEASE, LUMBAR SPINE 12353060 (SNOMED CT) Active 12/18 Nona Olson MA Degeneration of lumbar intervertebral disc Medications Medication Instructions Start Date Stop Date Generic Name [facility] Provider XALATAN 0.005 % SOLN 1 [facility] LATAN[facility] [id number] Nona Olson MA LISINOPRIL-HYD ROCHLOROTHIAZI DE 20-12.5 MG TABS 1 daily [facility] 6 LISINOPRIL-HYDR OCHLOROTHIAZIDE [id number] Nona Olson MA EQ OMEPRAZOLE 20 MG TBEC 1-2 daily [facility] 6 OMEPRAZOLE [id number] Nona Olson MA ZANAFLEX 4 MG ORAL CAPSULE 1 tid [facility] 6 TIZANIDINE HCL [phone] Nona Olson MA VICODIN ES 7.5-750 MG TABS 1 tid [facility] 6 HYDROCODONE-ARMANI TAMINOPHEN [id number] Nona Olson MA Medications Administered No information available. Allergies, Adverse Reactions, Alerts Observed no known allergies at Results No information available. Plan of Care No information available. Procedures No information available. Vital Signs Date Name Value Unit Description BP Diastolic 82 mm[Hg] blood pressu re, diastolic BP Systolic 124 mm[Hg] blood pressur e, systolic Height 66 [in_us] height E&M Weight Measured 160 [lb_av] weight E& M Weight Measured 160 [lb_av] weight E& M Immunizations No information available. Advance Directives No information available.
--- OUTSIDE RECORDS SUMMARY | 2024-10-25 22:46 | XMS_ITS | Clinical Summary ---
Author Organization [facility] Address [facility] [place] [address] Care Team Providers Care Chemical Weigher Name Role Phone Unavailable Primary Care Provider Unavailabl e Immunizations Immunization Administration Dates Next Due Influenza, injectable, quadrivalent, preservativ e free 03/04/2016 Pneumococcal Polysaccharide PPV23 03/04/2016 Social History Tobacco Use Types Packs/Day Years Used Date Smoking Tobacco: Never Assessed Sex and Gender Information Value Date Recorded Sex Assigned at Not on file Legal Sex Male 6:12 PM EDT Gender Identity Not on file Sexual Orientation Not on file Last Filed Vital Signs Vital Sign Reading Time Taken Comments Blood Pressure 115/56 12/02/2022 5:33 PM EDT Pulse - - Temperature - - Respiratory Rate - - Oxygen Saturation - - Inhaled Oxygen Concentration - - Weight 106 kg (233 lb) 12/02/2022 5:33 PM EDT Height 167.6 cm (5' 6 ) 12/02/2022 5:33 PM EDT Body Mass Index 37.61 12/02/2022 5:33 PM EDT Plan of Treatment Health Maintenance Due Date Last Done Comments [facility]-Depression Screening 1950 [facility]-/Child/Adol SDOH Screenings 1950 [facility]- SDOH Screenings 1969 [facility]-Adult SDOH Screenings 1969 [facility]-DTaP,Tdap,and Td Vaccines (1 - Tdap) 1970 CT Colonography 02/27/1996 Colonoscopy 02/27/1996 FIT-DNA 02/27/1996 FIT 02/27/1996 FOBT 02/27/1996 Sigmoidoscopy 02/27/1996 [facility]-Colorectal Cancer Screening 02/27/1996 [facility]-Zoster Vaccines (1 of 2) 2001 AK[facility]-[id number]-17 Vaccine ( season) 2024 08/08/2020, 07/11/2020 [facility]-Influenza Vaccine (Season Ended) 2025 04/14/2022, 03/17/2017, 03/04/2016, Additional history exists [facility]-RSV Vaccine: 60+ Years or (1 - 1-dose 75+ series) 2026 [facility]-Pneumococcal Vaccine: 50+ Years Completed 02/28/2020, 03/17/2017, 03/04/2016 HPV Vaccines Aged Out No longer eligi ble based on patient's age to complete this topic [facility]-HIB Vaccines Aged Out No longer e ligible based on patient's age to complete this topic [facility]-Hepatitis A Vaccines Aged Out No longer eligible based on patient's age to complete this topic [facility]-IPV Vaccines Aged Out No longer e ligible based on patient's age to complete this topic [facility]-Rotavirus Vaccines Aged Out No lo nger eligible based on patient's age to complete this topic Insurance MEDICARE
--- OUTSIDE RECORDS SUMMARY | 2024-10-25 22:46 | XMS_ITS | Clinical Summary ---
Author Organization [facility] Address [facility] [place] [address] Care Team Providers Care Centerpuncher Name Role Phone Seng Hall MD Primary Care Provider [phone] Source Comments This information has been disclosed to you from confidential records protectedfrom disclosure by state law. You shall make no further disclosure of thisinformation without the specific, written, and informed release of theindividual to whom it pertains, or as otherwise permitted by law. A generalauthorization for the release of medical or other information is not sufficientfor the purposes of therelease of HIV test results or diagnoses. [id number] Allergies No known active allergies Medications losartan (COZAAR) 50 MG tablet Take 50 mg by mouth daily. Active carvedilol (COREG) 25 MG tablet Take 25 mg by mouth 2 times a day with meals. Active spironolactone-h ydrochlorothiazi de (ALDACTAZIDE) 25-25 mg per tablet Take 1 tablet by mouth 2 times a day. Active clopidogrel (PLAVIX) 75 mg tablet Take 75 mg by mouth daily. Active aspirin 81 MG EC tablet Take 81 mg by mouth daily. Active atorvastatin (LIPITOR) 40 MG tablet Take 40 mg by mouth daily. Active HYDROcodone-acet aminophen (NORCO) 7.5-325 mg per tablet Take 1 tablet by mouth every 8 hours as needed for Pain. Active tiZANidine (ZANAFLEX) 4 MG capsule Take 4 mg by mouth 3 times a day. Active ALBUTEROL SULFATE (PROVENTIL HFA INHL) Inhale into the lungs 4 times a day. Active Active Problems Problem Noted Date Diagnosed Date Hypertension Hyperlipemia Back injury Family History Medical History Relation Comments Cancer Brother Heart disease Father Hyperlipidemia Father Hypertension Father Stroke Father Cancer Mother Lung Relation Status Comments Brother Father Mother Social History Tobacco Use Types Packs/Day Years Used Date Smoking Tobacco: Former Cigarettes Q uit: 08/04/2010 Smokeless Tobacco: Never Alcohol Use Standard Drinks/Week Comments No 0 (1 standard drink = 0.6 oz pur e alcohol) 12-11-1983 Former Sex and Gender Information Value Date Recorded Sex Assigned at Not on file Legal Sex Male 10:36 PM EST Gender Identity Not on file Sexual Orientation Not on file Last Filed Vital Signs Vital Sign Reading Time Taken Comments Blood Pressure 118/70 08/19/2016 10:18 AM EDT Pulse 70 08/19/2016 10:18 AM EDT Temperature - - Respiratory Rate - - Oxygen Saturation - - Inhaled Oxygen Concentration - - Weight 100.7 kg (222 lb) 08/19/2016 10:18 AM EDT Height 167.6 cm (5' 6 ) 08/19/2016 10:18 AM EDT Body Mass Index 35.83 08/19/2016 10:18 AM EDT Plan of Treatment Not on file Insurance [employer] Advance Directives For more information, please contact: [phone] Documents on File Type Date Recorded Patient Quality Assurance Assessor Expl anation Durable Power of Fiberglass Laminator - scan 08/19/2016 Care Teams Centerpuncher Relationship Specialty Start Date End Date Seng Hall MD [address] [place] [address] PCP - General Family Medicine 08/19/16
--- OUTSIDE RECORDS SUMMARY | 2024-10-25 22:46 | XMS_ITS | Continuity of Care Document ---
Author Organization [facility] [address] Address [address] [place] [address] Care Team Providers Care Surgical Processor Name Role Phone Seng Hall MD Primary Care Provider [phone] Encounters Date Type Department Care Team Description 02/21/2024 Refill [facility] [address] [address] Randy Nunn MD Medication Refill 01/05/2024 9:15 AM EDT Ancillary Procedure [facility] [address] [place] [address] Jordan Qureshi APRN Right knee pain, unspecified chronicity 01/05/2024 9:00 AM EDT Office Visit [facility] [address] [facility] [address] [place] [address] Jordan Qureshi APRN Knee strain, right, initial encounter (Primary Dx); Right knee pain, unspecified chronicity 12/23/2023 Refill [facility] [address] [address] Randy Nunn MD Medication Refill 07/16/2023 Refill [facility] [address] [address] Randy Nunn MD Medication Refill 06/12/2023 Refill [facility] &[address] [address] Randy Nunn MD Medication Refill 04/22/2023 Refill SEP H&[address] [address] Randy Nunn MD Medication Refill 04/09/2023 Refill [facility] &[address] [address] Randy Nunn MD Medication Refill 11/09/2022 Telephone SEP &[place] [address] Randy Nunn MD Medication Refill 08/22/2022 Refill SEP &[place] [address] Randy Nunn MD Medication Refill 06/08/2022 Refill [facility] [address] [place] [phone] Randy Nunn MD Medication Refill 06/08/2022 Telephone [facility] [id number] Randy Nunn MD Medication Refill 04/12/2022 10:20 AM EST Office Visit [facility] H&[address] [address] Randy Nunn MD ASHD (arteriosclerotic heart disease) (Primary Dx) 03/17/2022 Refill [facility] [address] [address] Randy Nunn MD Medication Refill 03/16/2022 Refill [facility] [address] [place] [phone] Randy Nunn MD Medication Refill 10/29/2021 Travel 10/29/2021 10:59 AM EDT - 10/29/2021 11:59 PM EDT Hospital Encounter [facility] [address] [place] [address] [address] [place] [address] Randy Nunn MD ASHD (arteriosclerotic heart disease); TIA (transient ischemic attack) Discharge Disposition: Home or Self Care 10/29/2021 10:58 AM EDT Hospital Encounter [facility] [address] [place] [address] [place] [address] Randy Nunn MD ASHD (arteriosclerotic heart disease); TIA (transient ischemic attack) Discharge Disposition: Home or Self Care 09/14/2021 9:20 AM EDT Office Visit [facility] [address] [address] Randy Nunn MD ASHD (arteriosclerotic heart disease) (Primary Dx); Essential hypertension; Pure hypercholesterolemia 08/12/2021 [facility] [address] [place] [phone] Randy Nunn MD Cardiology Clearance 07/19/2021 Refill [facility] [address] [place] [address] Russell Salvador MD Medication Refill 06/07/2021 Refill [facility] [address] [place] [address] Russell Salvador MD Medication Refill 05/04/2021 Telephone [facility] [address] [address] Randy Nunn MD Cardiology Clearance 04/20/2021 Telephone [facility] [address] [place] [address] Randy Nunn MD Schedule Appointment (echo/carotid) 04/08/2021 Refill [facility] [address] [place] [address] Russell Salvador MD Medication Refill 04/01/2021 Travel 04/01/2021 10:40 AM EST Office Visit [facility] [address] [id number] Randy Nunn MD ASHD (arteriosclerotic heart disease) (Primary Dx); TIA (transient ischemic attack) 03/15/2021 Refill [facility] [address] [address] Russell Salvador MD Medication Refill 03/09/2021 Refill [facility] [address] [phone] Russell Salvador MD Medication Refill 03/05/2021 Refill [facility] [address] [phone] Russell Salvador MD Medication Refill 01/16/2021 Refill [facility] [address] [phone] Russell Salvador MD Medication Refill 05/14/2020 Refill [facility] [address] [address] Russell Salvador MD Medication Refill 04/08/2020 Refill [facility] [address] [phone] Russell Salvador MD Medication Refill 04/06/2020 Refill [facility] [address] [address] Russell Salvador MD Medication Refill 03/11/2020 Travel 03/11/2020 10:00 AM EDT Office Visit [facility] [address] Russell Salvador MD Coronary artery disease involving klawock coronary artery of klawock heart without angina pectoris (Primary Dx); Essential hypertension; Dyslipidemia; SUSAN (obstructive sleep apnea); Cerebral vascular disease 03/18/2019 Telephone [facility] [address] [phone] Russell Salvador MD Other 03/11/2019 10:30 AM EDT Office Visit [facility] &[address] [address] Russell Salvador MD Coronary artery disease involving klawock coronary artery of klawock heart without angina pectoris (Primary Dx); HTN (hypertension), malignant; Dyslipidemia 03/31/[address] [address] Russell Salvador MD Medication Refill 03/28/2018 10:30 AM EST Office Visit [facility] &[address] [address] Russell Salvador MD Coronary artery disease involving klawock coronary artery of klawock heart without angina pectoris (Primary Dx); HTN (hypertension), malignant; Cerebral vascular disease; Dyslipidemia; SUSAN (obstructive sleep apnea) 02/06/2018 Refill [facility] [address] Russell Salvador MD Medication Refill 10/26/2017 9:30 AM EDT Office Visit [facility] [place] [address] Rachel Alcocer APRN Coronary artery disease involving klawock coronary artery of klawock heart without angina pectoris (Primary Dx); Benign essential HTN; Dyslipidemia; Cerebral vascular disease 10/19/[address] [address] Russell Salvador MD Appointment Needed 03/30/2017 10:30 AM EST Office Visit [facility] [address] Russell Salvador MD Coronary artery disease involving klawock coronary artery of klawock heart without angina pectoris (Primary Dx); HTN (hypertension), malignant; Dyslipidemia; SUSAN (obstructive sleep apnea) 03/05/2017 Refill [facility] [place] [address], [phone] Russell Salvador MD Medication Refill 02/08/2017 Telephone [facility] [address], [place] [phone] Russell Salvador MD Cardiology Clearance (Transforaminal LESI on 03/08/2017) 01/17/2017 Refill [facility] [address] Russell Salvador MD Medication Refill 12/19/2016 4:00 PM EDT Office Visit [facility] [place] [address] Russell Salvador MD Coronary artery disease involving klawock coronary artery of klawock heart without angina pectoris (Primary Dx); HTN (hypertension), malignant; Dyslipidemia; SUSAN (obstructive sleep apnea) 12/04/2016 Refill [facility] [place] [address] Russell Salvadro MD Medication Refill 09/23/2016 Refill [facility] [place] [address] Russell Salvador MD Medication Refill 09/23/2016 Telephone [facility] [place] [address] Russell Salvador MD Appointment Needed 08/31/2016 Refill [facility] [address] [phone] Russell Salvador MD Medication Refill 08/31/2015 Telephone [facility] [place] [address] Russell Salvador MD Visit Follow Up 08/17/2015 11:20 AM EDT Office Visit [facility] [address] 296 Russell Salvador MD Coronary artery disease involving klawock coronary artery of klawock heart without angina pectoris (Primary Dx); HTN (hypertension), malignant; Dyslipidemia 06/08/2015 Telephone [facility] [address] [place] [address] Russell Salvador MD Medication Refill 04/01/2015 8:00 PM EST - 04/01/2015 11:59 PM EST Hospital Encounter [facility] Sleep [place] [address] [place] [address] Obstructive sleep apnea (Primary Dx) Discharge Disposition: Home or Self Care 02/13/2015 1:28 PM EDT - 02/13/2015 11:59 PM EDT Hospital Encounter [facility] Sleep Disorder [place] [address] [place] [address] Farrah Michael MD SUSAN (obstructive sleep apnea) (Primary Dx); Centrilobular emphysema (HCC); Obesity (BMI 30.0-34.9) Discharge Disposition: Home or Self Care 01/30/2015 8:00 PM EDT - 01/30/2015 11:59 PM EDT Hospital Encounter [facility] Sleep Disorder [place] [address] [place] [address] Obstructive sleep apnea (Primary Dx) Discharge Disposition: Home or Self Care 01/30/2015 10:15 AM EDT - 01/30/2015 7:59 PM EDT Hospital Encounter [facility] Sleep Disorder [place] [address] [place] [address] Farrah Michael MD Snoring (Primary Dx); Chronic fatigue; Centrilobular emphysema (HCC); ASHD (arteriosclerotic heart disease) Discharge Disposition: Home or Self Care 09/11/2014 Refill [facility] [address] [place] [address] Russell Salvador MD Medication Refill 09/09/2014 Abstract [facility] [address] [phone] Russell Salvador MD 08/06/2014 2:30 PM EDT Office Visit [facility] [address] [place] [facility] [address] Russell Salvador MD HTN (hypertension), malignant (Primary Dx) 06/23/2014 Refill [facility] [address] [place] [address] Russell Salvador MD Medication Refill 03/21/2014 Telephone [facility] [address] [place] [address] Russell Salvador MD Other 02/07/2014 Telephone [facility] [address] [place] [address] Russell Salvador MD Visit Follow Up (01/27/14 DC appt) 01/27/2014 1:00 PM EDT Office Visit [facility] [address] [place] [address] Russell Salvador MD CAD (coronary artery disease) (Primary Dx); HTN (hypertension), malignant; Dyslipidemia; COPD (chronic obstructive pulmonary disease) (HCC) 11/09/2013 Refill [facility] [address] [place] [address] Russell Salvador MD Medication Refill 09/17/2013 2:00 PM EDT Office Visit [facility] [address] [place] [address] Liza Durbin APRN HTN (hypertension), malignant (Primary Dx); ASHD (arteriosclerotic heart disease); Dyslipidemia 07/26/2013 1:30 PM EDT Office Visit [facility] [address] [place] [address] Russell Salvador MD CAD (coronary artery disease) (Primary Dx); HTN (hypertension), malignant 03/24/2013 Refill [facility] [address] Liza Durbin APRN Medication Refill 03/22/2013 Telephone [facility] [phone] Russell Salvador MD Medication Question 03/19/2013 1:29 PM EST - 03/19/2013 11:59 PM EST Hospital Encounter [facility] [address] [place], [facility]17 Seng Hall MD Claudication Discharge Disposition: Home or Self Care 03/15/2013 Telephone [facility] [address] [phone] Russell Salvador MD Cardiology Clearance 01/28/2013 Telephone [facility] [address] [phone] Liza Durbin APRN Visit Follow Up 01/25/2013 8:40 AM EDT Office Visit [facility] [address] Liza Durbin APRN CAD (coronary artery disease) (Primary Dx); HTN (hypertension), malignant; Dyslipidemia 12/26/2012 Refill [facility] [address] [phone] Russell Salvador MD Medication Refill 12/25/2012 Refill [facility] [address] [address] Bing Shen APRN Medication Refill 12/11/2012 Telephone [facility] [address] [address] Liza Durbin APRN Results 12/10/2012 8:25 AM EDT - 12/10/2012 8:56 AM EDT Hospital Encounter [facility] [address] CAD (coronary artery disease) (Primary Dx); HTN (hypertension), malignant; Dyslipidemia Discharge Disposition: Home or Self Care 12/10/2012 8:57 AM EDT Hospital Encounter [facility] STR[facility] [address] [place] [address] Liza Durbin, DOUGHNUT MACHINE OPERATOR HELPER Chest pain; Dizziness; CAD (coronary artery disease); HTN (hypertension), malignant; Dyslipidemia Discharge Disposition: Home or Self Care 12/10/2012 8:58 AM EDT - 12/10/2012 11:59 PM EDT Hospital Encounter [facility] [address] [place] [address] Joel Durbina, DOUGHNUT MACHINE OPERATOR HELPER Chest pain; Dizziness; CAD (coronary artery disease); HTN (hypertension), malignant; Dyslipidemia Discharge Disposition: Home or Self Care 12/07/2012 Telephone [facility] [place] [phone] Russell Salvador MD Other 12/07/2012 11:00 AM EDT Office [place] [address] Joel Durbina, DOUGHNUT MACHINE OPERATOR HELPER Chest pain (Primary Dx); Dizziness; CAD (coronary artery disease); HTN (hypertension), malignant; Dyslipidemia 12/03/2012 Telephone [facility] &V [address] [phone] Russell Salvador MD Appointment Needed 11/13/2012 Telephone [facility] &[address] [address] Russell Salvador MD Medication Refill 05/31/2012 11:30 AM EST Office Visit [facility] &V [address] [address] Russell Salvador MD CAD (coronary artery disease) (Primary Dx); HTN (hypertension), malignant; Dyslipidemia; COPD (chronic obstructive pulmonary disease) (HCC) 05/29/2012 Abstract [facility] [address] [address] Joanna Penn Gold 04/23/2012 Refill [facility] [address] [phone] Russell Salvador MD Medication Refill 04/23/2012 Telephone [facility]V [address] [phone] Russell Salvador MD Medication Refill 03/19/2012 Telephone [facility] [address] [phone] Russell Salvador MD Appointment Needed 03/05/2012 8:50 AM EDT - 03/05/2012 11:59 PM EDT Hospital Encounter [facility] [address] [place], [facility]17 CAD (coronary artery disease); HTN (hypertension), malignant; Dyslipidemia Discharge Disposition: Home or Self Care 02/24/2012 Telephone [facility] [address] [address] Liza Durbin APRN Other 02/14/2012 8:20 AM EDT Office Visit [facility] [address] [address] Liza Durbin APRN CAD (coronary artery disease); HTN (hypertension), malignant; Dyslipidemia 02/01/2012 Telephone [facility] [address] [phone] Russell Salvador MD Appointment Needed 01/23/2012 Telephone [facility] [address] [phone] Russell Salvador MD Medication Refill 01/11/2012 7:35 AM EDT - 01/12/2012 1:22 PM EDT Hospital Encounter [facility] [place] [address] Russell Salvador MD Abnormal finding on cardiovascular stress test (Primary Dx); Acute ischemic heart disease (HCC); HTN (hypertension), malignant; Chest pain Discharge Disposition: Home or Self Care 01/11/2012 9:15 AM EDT - 01/11/2012 10:15 AM EDT Surgery Russell Salvador MD CARDIAC PROCEDURE-ELECTROTYPER HELPER ONLY 12/27/2011 3:15 PM EDT - 12/27/2011 11:59 PM EDT Hospital Encounter [facility] [place], [place] [id number] Abnormal cardiovascular function study; HTN (hypertension), malignant; Dyslipidemia; FH: CAD (coronary artery disease); Chronic back pain Discharge Disposition: Home or Self Care 12/27/2011 1:00 PM EDT Office Visit [facility] [place] [address] [place] [address] Russell Salvador MD Abnormal cardiovascular function study; HTN (hypertension), malignant; Dyslipidemia; FH: CAD (coronary artery disease); Chronic back pain 12/23/2011 Telephone [facility] [address] [place] [address] Russell Salvador MD Release of Information 02/20/2008 Hospital Encounter [facility] Generic, Historical Provider 10/15/2007 2:23 AM EDT - 10/15/2007 6:30 AM EDT Emergency [facility] Generic, Historical Provider 09/22/2007 Hospital Encounter [facility] Generic, Historical Provider Allergies No known active allergies Medications ALBUTEROL SULFATE (PROVENTIL INHL) Inhale 1 Puff into the lungs every 6 hours as needed. Active latanoprost (XALATAN) 0.005 % Place 1 Drop into both eyes nightly. Active tiZANidine (ZANAFLEX) 4 mg Oral Capsule Take 4 mg by mouth 3 times daily as needed. Active HYDROcodone-acet aminophen (NORCO) 7.5-325 mg Oral Tablet Take 1 Tablet by mouth every 6 hours as needed. Active nitroGLYCERIN (NITROSTAT) 0.[address] 1 Tab under the tongue every 5 minutes as needed for Chest pain. 30 Tab 6 2 Active Additional Information Patient not taking.Reason: Pt electing to not take the medication, Reported on 03/28/2018 Aspirin (ASPIRIN) 81 mg Take 1 Tab by mouth daily. 30 Tab 11 2 Active FLUTICASONE PROPIONATE (FLONASE NASL) by Nasal route as needed. Active ibuprofen (ADVIL;MOTRIN) 200 mg Oral Tablet Take 200 mg by mouth as needed for Pain. Active cloNIDine HCl (CATAPRES) 0.1 mg Oral Tablet Take 1 Tab by mouth 2 times daily as needed. 30 Tab 3 8 Active oxymetazoline HCl (SINEX LONG-ACTING NASL) by Nasal route as needed. Active albuterol (PROVENTIL) 2.5 mg /3 mL (0.083 %) Inhl Solution for Nebulization Take 2.5 mg by nebulization every 4 hours. Active diphenhydrAMINE (BENADRYL) 25 mg Oral Capsule Take 25 mg by mouth as needed for Itching. Active pseudoephedrine HCl (SUDAFED ORAL) Take by mouth as needed. Active multivitamin/iro n/folic acid (CENTRUM ORAL) Take by mouth daily. Active spironolactone-h ydrochlorothiazi de (ALDACTAZIDE) 25-25 mg Oral Tablet Take 1 Tablet by mouth daily. 90 Tablet 3 3 Active carvediloL (COREG) 25 mg Oral Tablet Take 1 Tablet by mouth 2 times daily. 180 Tablet 3 3 Active amLODIPine (NORVASC) 10 mg Oral Tablet TAKE 1 TABLET BY MOUTH EVERY OTHER DAY 45 Tablet 3 3 Active clopidogreL (PLAVIX) 75 mg Oral Tablet Take 1 Tablet by mouth daily. 90 Tablet 1 3 Active losartan (COZAAR) 100 mg Oral Tablet TAKE 1 TABLET BY MOUTH DAILY NOW UNDER THE CARE OF DOCTOR ROMINA 90 Tablet 1 4 Active atorvastatin (LIPITOR) 40 mg Oral Tablet TAKE 1 TABLET BY MOUTH DAILY 90 Tablet 1 4 Active methylPREDNISolo ne (MEDROL DOSPACK) 4 mg Oral Tablets, Dose PackIndications: Right knee pain, unspecified chronicity,Knee strain, right, initial encounter Follow package directions 21 Tablet 4 Active Active Problems Problem Noted Date Diagnosed Date Cerebral vascular disease 10/26/2017 SUSAN (obstructive sleep apnea) 02/13/2015 Overview (02/13/2015): RDI 44, 2015, 195 lb Obesity (BMI 30.0-34.9) 02/13/2015 Snoring 01/30/2015 Chronic fatigue 01/30/2015 Dizziness 12/07/2012 COPD (chronic obstructive pulmonary disease) Coronary artery disease invo lving klawock coronary artery of klawock heart without angina pectoris 02/14/2012 Abnormal cardiovascular function study 2 Benign essential HTN 12/27/2011 Dyslipidemia 12/27/2011 FH: CAD (coronary artery disease) 12/27/2011 Chronic back pain 12/27/2011 Resolved Problems Problem Noted Date Diagnosed Date Resolved Date Chest pain 01/12/2012 10/26/2017 Family History Medical History Relation Name Comments Heart Attack Brother 1 Lung Cancer Brother 1 Heart Attack Brother 2 Heart Disease Father Stroke Father Cancer Mother lung Stroke Mother Relation Name Status Comments Brother 1 Brother 2 Alive Father Mother Sister Social History Smoking Status as of 10/25/2024 Tobacco Use Types Packs/Day Years Used Date Smoking Tobacco: Never Assessed Sex and Gender Information Value Date Recorded Sex Assigned at Not on file Legal Sex Male 8:36 PM EDT Gender Identity Not on file Sexual Orientation Not on file Last Filed Vital Signs Vital Sign Reading Time Taken Comments Blood Pressure 128/84 04/12/2022 10:14 AM EST Pulse 71 04/12/2022 10:14 AM EST Temperature 36.3 C (97.3 F) 03/11/2020 9:43 AM EDT Respiratory Rate 14 03/11/2020 9:43 AM EDT Oxygen Saturation 97% 04/01/2021 10:31 AM EST Inhaled Oxygen Concentration - - Weight 109.3 kg (241 lb) 01/05/2024 9:23 AM EDT Height 167.6 cm (5' 6 ) 01/05/2024 9:23 AM EDT Body Mass Index 38.9 01/05/2024 9:23 AM EDT Plan of Treatment Not on file Medical Devices Implanted Type Area Blueprint Clerk Device Identifier Shelf Expiration Date Model / Serial / Lot Stent Coronary Vision Rx 4.00mm X 15mm - [id number] Implanted:Qty: 1 on 01/11/2012 by Russell Salvador MD at ED ELECTROTYPER HELPER Explanted:at [facility] ELECTROTYPER HELPER (Quantity not on file) Stent-Vis ion N/A: [facility] LAB:VASC DEV [id number] / / [id number] Procedures Procedure Name Priority Date/Time Associated Diagnosis Comments XR KNEE RIGHT AP LATERAL AND SUNRISE STANDING Routine 01/05/2024 9:22 AM EDT Right knee pain, unspecified chronicity EC ECHOCARDIOGRAM COMPLETE W DOPPLER AND COLOR FLOW MAPPING Routine 10/29/2021 1:25 PM EDT ASHD (arteriosclerotic heart disease) TIA (transient ischemic attack) AL US CAROTID DUPLEX BILATERAL Routine 10/29/2021 11:29 AM EDT ASHD (arteriosclerotic heart disease) TIA (transient ischemic attack) POCT EKG Routine 04/01/2021 11:19 AM EST ASHD (arteriosclerotic heart disease) LIPID PANEL REFLEX Routine 08/19/2014 6: 45 PM EDT [facility] LOWER EXTREMITY ARTERIAL PHYSIOLOGICAL Routine 03/19/2013 2:07 PM EST Claudication NM MYOCARDIAL PERFUSION SPECT STRESS AND REST Routine 12/10/2012 11:48 AM EDT Chest pain Dizziness CAD (coronary artery disease) HTN (hypertension), malignant Dyslipidemia SCANNED RADIOLOGY REPORT 12/10/2012 11:31 AM EDT SCANNED RADIOLOGY REPORT 12/10/2012 11:[address] STRESS TEST LEXISCAN Routine 12/10/2012 11:05 AM EDT Chest pain Dizziness CAD (coronary artery disease) HTN (hypertension), malignant Dyslipidemia LIPID SCREEN Routine 12/10/2012 8:34 AM EDT Dyslipidemia HEPATIC FUNCTION PANEL Routine 12/10/2012 8:34 AM EDT Dyslipidemia CBC Routine 12/10/2012 8:34 AM EDT CAD (coronary artery disease) HTN (hypertension), malignant BASIC METABOLIC PANEL Routine 12/10/2012 8:34 AM EDT CAD (coronary artery disease) HTN (hypertension), malignant POCT EKG Routine 12/07/2012 11:34 AM EDT Chest pain LDL, CALCULATED Routine 03/05/2012 7:11 AM EDT LIPID PANEL REFLEX Routine 03/05/2012 7: 11 AM EDT CAD (coronary artery disease) HTN (hypertension), malignant Dyslipidemia HEPATIC FUNCTION PANEL Routine 03/05/2012 7:11 AM EDT CAD (coronary artery disease) HTN (hypertension), malignant Dyslipidemia BASIC METABOLIC PANEL Routine 03/05/2012 7:11 AM EDT CAD (coronary artery disease) HTN (hypertension), malignant Dyslipidemia SCANNED RHYTHM STRIPS 01/16/2012 5:35 PM EDT SCANNED CARDIAC ELECTROTYPER HELPER 01/16/2012 5:35 PM EDT SCANNED RHYTHM STRIPS 01/11/2012 7:48 PM EDT VA US CAROTID DUPLEX BILATERAL Routine 01/11/2012 4:09 PM EDT POCT ACTIVATED CLOTTING TIME Routine 01/11/2012 1:30 PM EDT SCANNED RHYTHM STRIPS 01/11/2012 12:30 PM EDT POCT ACTIVATED CLOTTING TIME Routine 01/11/2012 11:30 AM EDT POCT ACTIVATED CLOTTING TIME Routine 01/11/2012 10:23 AM EDT CARDIAC PROCEDURE-ELECTROTYPER HELPER ONLY 01/11/2012 9:33 AM EDT + STRESS TEST Special Needs SYBIL / CPT [id number] CBC Routine 12/27/2011 3:34 PM EDT Abnormal cardiovascular function study HTN (hypertension), malignant Dyslipidemia FH: CAD (coronary artery disease) Chronic back pain BASIC METABOLIC PANEL Routine 12/27/2011 3:34 PM EDT Abnormal cardiovascular function study HTN (hypertension), malignant Dyslipidemia FH: CAD (coronary artery disease) Chronic back pain SCANNED EKG 12/27/2011 12:00 AM EDT SCANNED EKG 12/27/2011 12:00 AM EDT SCANNED LABS 12/27/2011 12:00 AM EDT SCANNED LABS 12/27/2011 12:00 AM EDT SCANNED LABS 12/27/2011 12:00 AM EDT SCANNED LABS 12/27/2011 12:00 AM EDT SCANNED RADIOLOGY REPORT 12/27/2011 12:00 AM EDT SCANNED RADIOLOGY REPORT 12/27/2011 12:00 AM EDT SCANNED RADIOLOGY REPORT 12/27/2011 12:00 AM EDT SCANNED RADIOLOGY REPORT 12/27/2011 12:00 AM EDT SCANNED ENDOSCOPY REPORT 09/04/2009 12:00 AM EDT DIAG FOREIGN BODY DETECTION EYE Routine 02/20/2008 12:[address] PELVIS W CONTRAST Routine 09/22/2007 12:[address] ABDOMEN W CONTRAST Routine 09/22/2007 12:00 AM EDT Results * XR KNEE RIGHT AP LATERAL AND SUNRISE STANDING (01/05/2024 9:22 AM EDT) Narrative Genericuser, Audit - 01/05/2024 9:22 AM EDT Please see physician's note from office encounter for x-ray imaging result us Jordan Kiera DOUGHNUT MACHINE OPERATOR HELPER IMG DIAGNOSTIC IMAGING ORDERABL ES Final Result * EC ECHOCARDIOGRAM COMPLETE W DOPPLER AND COLOR FLOW MAPPING (10/29/2021 1:25 PM EDT) LV DIASTOLIC PLAX 4.7 cm PYRAMIS Ejection Fraction 60-65% PYRAMIS MITRAL REGURGITATION mild PYRAMIS AORTIC STENOSIS no PYRAMIS Anatomical Region Laterality Modality Electrocardiogra phy 10/29/2021 12:3 7 PM EDT Impressions 10/29/2021 2:57 PM EDT Conclusions * Left ventricular chamber dimension is normal. * There is moderately increased left ventricular wall thickness. * Left ventricular function is normal with an estimated ejection fraction of 60-65%. * Abnormal septal motion consistent with an intraventricular conduction defect. * The left ventricular diastolic function is indeterminate. * Global longitudinal strain of the left ventricle is -16.0 %. * Right ventricular systolic function is normal. * Estimated pulmonary artery pressure is 29 mmHg, consistent with no pulmonary hypertension. Narrative Procedure Note Randy Nunn MD - 10/29/2021 IMPRESSION Conclusions * Left ventricular chamber dimension is normal. * There is moderately increased left ventricular wall thickness. * Left ventricular function is normal with an estimated ejectionfraction of 60-65%. * Abnormal septal motion consistent with an intraventricularconduction defect. * The left ventricular diastolic function is indeterminate. * Global longitudinal strain of the left ventricle is -16.0 %. * Right ventricular systolic function is normal. * Estimated pulmonary artery pressure is 29 mmHg, consistent with no pulmonary hypertension. Result [facility] Randy Nunn MD IMG ECHO ORDERABLES Final Res ult * AL US CAROTID DUPLEX BILATERAL (10/29/2021 11:29 AM EDT) Only the most recent of2 resultswithin the time period is included. Anatomical Region Laterality Modality Vascular, Head, Neck Vascular Im aging 10/29/2021 11:1 7 AM EDT Impressions 10/29/2021 12:55 PM EDT Conclusions * Bilateral 1-39% (mild) stenosis internal carotid arteries. * Elevated velocities are identified in the LECA suggesting a >50% stenosis. * Elevated velocities are identified in the left subclavian artery. * Vertebral flow is antegrade bilaterally. Narrative Procedure Note Jarrod Bansal MD - 10/29/2021 IMPRESSION Conclusions * Bilateral 1-39% (mild) stenosis internal carotid arteries. * Elevated velocities are identified in the LECA suggesting a >50%stenosis. * Elevated velocities are identified in the left subclavian artery. * Vertebral flow is antegrade bilaterally. Result Jorge Luis Nunn MD IMG VASCULAR ORDERABLES Final Result * POCT EKG (04/01/2021 11:19 AM EST) Only the most recent of2 resultswithin the time period is included. 04/01/2021 11:1 9 AM EST us Randy Nunn MD POINT OF CARE CARDIOLOGY Ariela l Result SEP OFFICE * (ABNORMAL) LIPID PANEL REFLEX (08/19/2014 6:45 PM EDT) Only the most recent of2 resultswithin the time period is included. Cholesterol, Total 137 SEP OFFICE HDL 39 35 - 70 mg/dL SEP OFFICE Triglycerides 136 SEP OFFICE LDL Cholesterol 71 SEP OFFICE Chol/HDL Ratio 3.5 SEP OFFICE Glucose, Bld 88 SEP OFFICE BUN 17 4 - 21 mg/dL SEP OFFICE Creatinine 1.0 0.6 - 1.3 mg/dL SEP OFFICE BUN/Creatinine Ratio 17 SEP OFFICE Sodium 136(A) 137 - 147 mmol/L SEP OFFICE Potassium 4.2 3.4 - 5.3 mmol/L SEP OFFICE Chloride 101 99 - 108 mmol/L SEP OFFICE CO2 23 SEP OFFICE Calcium 9.70 8.70 - 10.70 mg/dL SEP OFFICE Protein, Total 7.2 SEP OFFICE Albumin 4.4 SEP OFFICE Globulin 2.8 SEP OFFICE AST 19 14 - 40 U/L SEP OFFICE ALT 19 10 - 40 U/L SEP OFFICE PSA Total 0.8 SEP OFFICE Blood specimen (specimen) UPPER LIMB STRUCTURE / Unknown 08/19/2014 6:45 PM EDT Seng Hall MD CHEMISTRY ORDERABLES Final Resul t SEP OFFICE * [facility] LOWER EXTREMITY ARTERIAL PHYSIOLOGICAL (03/19/2013 2:07 PM EST) Anatomical Region Laterality Modality Vascular, Leg Vascular Imaging 03/19/2013 1:32 PM EST Impressions 03/19/2013 2:20 PM EST DOPPLER FINDINGS Normal triphasic waveform demonstrated bilaterally. VPR Right Grades Test Site Left Grades Normal High Thigh Normal Normal Low Thigh Normal Normal Calf Normal Normal Ankle Normal VPR FINDINGS Normal VPR waveforms bilaterally in the lower extremity arterial system. SEGMENTAL BP Right (mmHg) Index Test Site Left (mmHg) Index 122 NA Brachial 130 NA 186 1.43 Posterior Tibial 186 1.43 158 1.22 Dorsalis Pedis 151 1.16 SEGMENTAL BP FINDINGS Normal lower extremity pressures bilaterally. CONCLUSIONS Normal hemodynamics of both lower extremities at rest. PVRs and Doppler waveforms are within normal limits bilaterally. No evidence of arterial insufficiency of either leg. Narrative Procedure Note Rolo Chapman MD - 03/19/2013 IMPRESSION DOPPLER FINDINGS Normal triphasic waveform demonstrated bilaterally. VPR Right Grades Test Site LeftGrades Normal High Thigh Normal Normal Low Thigh Normal Normal Calf Normal Normal Ankle Normal VPR FINDINGS Normal VPR waveforms bilaterally in the lower extremity arterial system. SEGMENTAL BP Right (mmHg) Index Test SiteLeft (mmHg) Index 122 NA [id number] NA 186 1.43 Posterior [id number] 1.43 158 1.22 Dorsalis [id number] 1.16 SEGMENTAL BP FINDINGS Normal lower extremity pressures bilaterally. CONCLUSIONS Normal hemodynamics of both lower extremities at rest. PVRs and Dopplerwaveforms are within normal limits bilaterally. No evidence of arterial insufficiency of either leg. Seng Hall MD IMG VASCULAR ORDERABLES Final Re sult * NM MYOCARDIAL PERFUSION SPECT STRESS AND REST (12/10/2012 11:48 AM EDT) Ejection Fraction 64 % PYRAMIS Anatomical Region Laterality Modality Nuclear Medicine 12/10/2012 9:26 AM EDT Impressions 12/10/2012 2:05 PM EDT SPECT RESULTS Technical Quality: Technically adequate study Raw Data Analysis: No clinically relevant artifact Perfusion: Homogeneous uptake of isotope throughout the left ventricle on both stress and rest images. No evidence of myocardial ischemia or prior myocardial infarction. FUNCTION (calculated via Gated SPECT) Post Stress LV EF:64 % TID: 0.8 EDV: 71 ml (70-100 ml) ESV: 25 ml (30-50 ml) EDVI: 35 ml/m? (30-50 ml/m?) ESVI: 12 ml/m? (15-30 ml/m?) Technical Quality: Gated SPECT appears to be visually accurate LV Size & Function: Normal left ventricular size and function. LV Regional Function: No wall motion abnormalities. Right Ventricle: Normal right ventricular size and function. IMPRESSIONS No evidence of myocardial ischemia or prior myocardial infarction. Normal left ventricular size and function. No wall motion abnormalities. Narrative Procedure Note Sky Patel MD - 12/10/2012 IMPRESSION SPECT RESULTS Technical Quality: Technically adequate study Raw Data Analysis: No clinically relevant artifact Perfusion: Homogeneous uptake of isotope throughout the leftventricle on both stress and rest images. No evidence of myocardial ischemia or priormyocardial infarction. FUNCTION (calculated via Gated SPECT) Post Stress LV EF:64 %TID: 0.8 EDV: 71 ml (70-100 ml) ESV: 25 ml(30-50 ml) EDVI: 35 ml/m? (30-50 ml/m?) ESVI: 12ml/m? (15-30 ml/m?) Technical Quality: Gated SPECT appears to be visually accurate LV Size & Function: Normal left ventricular size and function. LV Regional Function: No wall motion abnormalities. Right Ventricle: Normal right ventricular size and function. IMPRESSIONS No evidence of myocardial ischemia or prior myocardial infarction. Normal left ventricular size and function. No wall motion abnormalities. us Liza Durbin APRN IMG NM CARDIAC ORDERABLES Final Result * SCANNED RADIOLOGY REPORT (12/10/2012 11:31 AM EDT) Only the most recent of6 resultswithin the time period is included. Anatomical Region Laterality Modality Other 12/10/2012 11:3 1 AM EDT us Unknown Unknown IMG DIAGNOSTIC IMAGING ORDERABLE S Final Result * ST STRESS TEST LEXISCAN (12/10/2012 11:05 AM EDT) Anatomical Region Laterality Modality Cardiac Stress T esting Narrative 12/11/2012 3:48 PM EDT [facility] View LEXISCAN INTERPRETATION Name: Crsitobal Velarde Date: 12/10/2012 : 1950 1. Baseline EKG revealed: Minor nonspecific ST/T wave changes. 2. Baseline blood pressure was: 136/72. 3. 0.4 mg Lexiscan given IV push at 20 seconds into protocol. 4. Lexiscan injection was done WITH low level exercise. 5. The test was stopped due to pharmacologic stress protocol completion. 6. The patient DID have symptoms during the procedure. Specific symptoms include: shortness of breath. 7. Aminophylline IV push WAS NOT given in recovery. 8. Stress EKG was interpreted as: Less than [address] depression after IV Lexiscan; Non diagnostic response by: Dr. Abraham Lopez. 9. Myoview scan report pending. 10. Procedure Note Sky Patel MD - 12/11/2012 [facility] View LEXISCAN INTERPRETATION Name: Cristobal Velarde Date: 12/10/2012 : 1950 1. Baseline EKG revealed: Minor nonspecific ST/T wave changes. 2. Baseline blood pressure was: 136/72. 3. 0.4 mg Lexiscan given IV push at 20 seconds into protocol. 4. Lexiscan injection was done WITH low level exercise. 5. The test was stopped due to pharmacologic stress protocol completion. 6. The patient DID have symptoms during the procedure. Specific symptoms include: shortness of breath. 7. Aminophylline IV push WAS NOT given in recovery. 8. Stress EKG was interpreted as: Less than [address] depression after IVLexiscan; Non diagnostic response by: Dr. Abraham Lopez. 9. Myoview scan report pending. 10. us Liza Durbin DOUGHNUT MACHINE OPERATOR HELPER IMG STRESS ORDERABLES Final Res ult * CBC (12/10/2012 8:34 AM EDT) Only the most recent of2 resultswithin the time period is included. WBC 9.1 4.0 - 11.0 x10(3)/mcL [facility] RBC 4.76 4.30 - 5.81 x10(6)/mcL [facility] Hgb 15.3 13.5 - 17.1 gm/dL [facility] Hct 43.9 38.9 - 51.6 % [facility] MCV 92.3 82.5 - 99.8 fL [facility] MCH 32.2 27.0 - 34.3 pg [facility] MCHC 34.8 32.1 - 35.3 gm/dL [facility] RDW 13.2 11.5 - 15.0 % [facility] Platelet 221 144 - 423 x10(3)/mcL [facility] MPV 9.7 6.8 - 10.8 fL [facility] Blood specimen (specimen) UPPER LIMB STRUCTURE / Unknown 12/10/2012 8:34 AM EDT 12/10/2012 8:41 AM EDT Liza Durbin DOUGHNUT MACHINE OPERATOR HELPER HEMATOLOGY ORDERABLES Final Res ult Performing Organization Address [facility] Co de Phone Number [facility] [address] [place] [address] * HEPATIC FUNCTION PANEL (12/10/2012 8:34 AM EDT) Only the most recent of2 resultswithin the time period is included. Pathologist [facility] Total Protein 7.1 6.0 - 8.2 gm/dL [facility] Albumin 4.3 3.4 - 4.8 gm/dL [facility] Bili Direct 0.1 0.0 - 0.4 mg/dL [facility] Bili Total 0.4 0.1 - 1.4 mg/dL [facility] AST 19 16 - 55 IU/L [facility] ALT 18 6 - 72 IU/L [facility] Alk Phos 77 41 - 119 IU/L [facility] Blood specimen (specimen) UPPER LIMB STRUCTURE / Unknown 12/10/2012 8:34 AM EDT 12/10/2012 8:41 AM EDT Liza Durbin DOUGHNUT MACHINE OPERATOR HELPER CHEMISTRY ORDERABLES Final Resu lt Performing Organization Address City/[facility] Co de Phone Number [facility] [address] [place] [address] * (ABNORMAL) LIPID SCREEN (12/10/2012 8:34 AM EDT) Cholesterol 170 <=200 mg/dL [facility] Comment: < 200 Desirable 200 - 239 Borderline High >= 240 High Triglyceride 112 <=150 mg/dL [facility] Comment: < 150 Normal 150 - 199 Borderline High 200 - 499 High >= 500 Very High HDL 40 >=40 mg/dL [facility] Comment: > 60 Optimal 40 - 60 Acceptable < 40 Low LDL Calculated 108(H) <=100 mg/dL [facility] Comment: < 100 Optimal 100 - 129 Near or above optimal 130 - 159 Borderline High 160 - 189 High >= 190 Very High Blood specimen (specimen) UPPER LIMB STRUCTURE / Unknown 12/10/2012 8:34 AM EDT 12/10/2012 8:41 AM EDT Liza Durbin APRN CHEMISTRY ORDERABLES Edited Res ult - Final Performing Organization Address [facility] Co de Phone Number [facility] [address] [place] [address] * BASIC METABOLIC PANEL (12/10/2012 8:34 AM EDT) Only the most recent of3 resultswithin the time period is included. Pathologist [facility] Sodium 141 135 - 143 mmol/L [facility] Potassium 3.9 3.5 - 5.0 mmol/L [facility] Chloride 104 98 - 108 mmol/L [facility] Total CO2 26 22 - 31 mmol/L [facility] Anion Gap 11 7 - 16 mmol/L [facility] Calcium 9.4 8.6 - 10.3 mg/dL [facility] Glucose Lvl 99 70 - 100 mg/dL [facility] BUN 15 8 - 23 mg/dL [facility] Creatinine 1.0 0.7 - 1.3 mg/dL [facility] GFR Afr Am >60 [facility] Comment: GFR is estimated using creatinine, age, gender, and race. GFR has been validated for patients between 18 and 70 years of age. GFR has not been validated for women, patients with serious comorbid conditions, or persons with extremes of body size, muscle mass, or nutritional status. For additional information: www.kidney.org. Chronic kidney disease stage GFR (ml/min/1.73 square meters) Stage 3 30 - 59 Stage 4 15 - 29 Stage 5 14 or less GFR Non Afr Am >60 [facility] Blood specimen (specimen) UPPER LIMB STRUCTURE / Unknown 12/10/2012 8:34 AM EDT 12/10/2012 8:41 AM EDT Liza Rice DOUGHNUT MACHINE OPERATOR HELPER CHEMISTRY ORDERABLES Final Resu lt Performing Organization Address [facility]/ZIP Co de Phone Number [facility] [address] [place] [address] * LDL, CALCULATED (03/05/2012 7:11 AM EDT) LDL Calculated 89 <=100 mg/dL [facility] Comment: < 100 Optimal 100 - 129 Near or above optimal 130 - 159 Borderline High 160 - 189 High >= 190 Very High Blood specimen (specimen) 03/05/2012 7:11 AM EDT 03/05/2012 9:12 AM EDT Liza Rice DOUGHNUT MACHINE OPERATOR HELPER CHEMISTRY ORDERABLES Final Resu lt Performing Organization Address City/[facility]/ZIP Co de Phone Number [facility] [address] [place] [address] * SCANNED CARDIAC ELECTROTYPER HELPER (01/16/2012 5:35 PM EDT) Narrative Transcriptions Unknown, Unknown - 01/16/2012 5:35 PM EDT us Unknown Unknown [facility] CARDIAC CATH ORDERABLES Ariela l Result * SCANNED RHYTHM STRIPS (01/16/2012 5:35 PM EDT) Only the most recent of3 resultswithin the time period is included. Anatomical Region Laterality Modality Other Narrative Transcriptions Unknown, Unknown - 01/16/2012 5:35 PM EDT us Unknown Unknown IMG ECG ORDERABLES Final Result * POCT ACTIVATED CLOTTING TIME (01/11/2012 1:30 PM EDT) Only the most recent of3 resultswithin the time period is included. ACT 163 sec [facility] Lot Number [facility] Expiration Date [facility] SeriAl # SE LAB Meter [facility] Blood specimen (specimen) 01/11/2012 1:30 PM EDT us Russell Salvador MD POINT OF CARE TEST ORDERABL ES Final Result [facility] [address] [place] [address] * SCANNED EKG (12/27/2011 12:00 AM EDT) Only the most recent of2 resultswithin the time period is included. Anatomical Region Laterality Modality Other Narrative Transcriptions Unknown, Unknown - 12/27/2011 12:00 AM EDT us Unknown Unknown IMG ECG ORDERABLES Final Result * SCANNED LABS (12/27/2011 12:00 AM EDT) Only the most recent of4 resultswithin the time period is included. Narrative Transcriptions Unknown, Unknown - 12/27/2011 12:00 AM EDT us Unknown Unknown HEMATOLOGY ORDERABLES Final Resu lt * SCANNED ENDOSCOPY REPORT (09/04/2009 12:00 AM EDT) Narrative 09/04/2009 10:13 PM EDT Ordered by an unspecified provider. Transcriptions Unknown, Unknown - 09/04/2009 6:13 PM EDT us Unknown Unknown PROCEDURE/MINOR SURGICAL ORDERAB LES Final Result * XR FOREIGN BODY DETECTION EYE (02/20/2008 12:00 AM EDT) Anatomical Region Laterality Modality Other 02/20/2008 02/20/2008 Narrative 02/20/2008 12:00 AM EDT Name: DOMINGO Robledo : 1950 VERIFIED [facility] Reason: ? METAL FOREIGN BODY EYES ORBIT XRAYS Dict.Staff: DAISY PERDOMO [id number] Verified By: TERRY PATEL Ruben: 02/21/08 7:38 am Exams: DIAG-FB DETECTION EYE ORBITS THREE VIEWS FOR FOREIGN BODY 02-20-08 HISTORY: MRI SCHEDULED FOR 02-25-08. EVALUATE FOR METALLIC FOREIGN BODY. FINDINGS: 1. No opaque foreign bodies are identified. 2. There is deformity of the floor of the right orbit and roof of the right maxillary sinus consistent with an old blow out fracture. WE/pp DICTATED ON 02-20-08 AT 1715 HOURS end of result Procedure Note Unknown, U - 08/28/2009 Name: DOMINGO Robledo : 1950 VERIFIED [facility] Reason: ? METAL FOREIGN BODY EYES ORBIT XRAYS Dict.Staff: DAISY PERDOMO [id number] Verified By: TERRY PATEL Ruben: 02/21/08 7:38 am Exams: DIAG-FB DETECTION EYE ORBITS THREE VIEWS FOR FOREIGN BODY 02-20-08 HISTORY: MRI SCHEDULED FOR 02-25-08. EVALUATE FOR METALLIC FOREIGN BODY. FINDINGS: 1. No opaque foreign bodies are identified. 2. There is deformity of the floor of the right orbit and roof of the right maxillary sinus consistent with an old blow out fracture. WE/pp DICTATED ON 02-20-08 AT 1715 HOURS end of result us U Unknown IMG [facility] RAD HISTORICAL Final Result * CT PELVIS W CONTRAST (09/22/2007 12:00 AM EDT) Anatomical Region Laterality Modality Other 09/22/2007 09/22/2007 Narrative 09/22/2007 12:00 AM EDT Name: DOMINGO KOWALSKI : 1950 VERIFIED [facility] Reason: CT A/P Dict.Staff: BRENDA THOMAS [id number] Verified By: JE PATEL Ruben: 09/24/07 7:43 am Exams: CT-ABDOMEN WITH CONTRAST CT-PELVIS WITH CONTRAST CT ABDOMEN AND PELVIS WITH CONTRAST, 09/22/2007. INDICATIONS: Left-sided abdominal pain, possible hernia. Abdomen and pelvis CT with 100ml of Isovue 370 intravenous contrast material. The lung bases are clear. The liver, spleen, pancreas, gallbladder, adrenal glands, kidneys, and retroperitoneum are normal, other than mild vascular calcification. Small and large bowel within the abdomen is normal. There is no hernia identified. Pelvis shows normal structures with prostatic calcification incidentally noted. No adenopathy, mass, or inguinal hernia identified. IMPRESSION: 1. Normal CT abdomen and pelvis. MICHELET:judith DICTATED 09/22/2007 @ 13:45 end of result Procedure Note Unknown, U - 08/28/2009 Name: DOMINGO KOWALSKI : 1950 VERIFIED [facility] Reason: CT A/P Dict.Staff: BRENDA THOMAS [id number] Verified By: JE PATEL Ruben: 09/24/07 7:43 am Exams: CT-ABDOMEN WITH CONTRAST CT-PELVIS WITH CONTRAST CT ABDOMEN AND PELVIS WITH CONTRAST, 09/22/2007. INDICATIONS: Left-sided abdominal pain, possible hernia. Abdomen and pelvis CT with 100ml of Isovue 370 intravenous contrast material. The lung bases are clear. The liver, spleen, pancreas, gallbladder, adrenal glands, kidneys, and retroperitoneum are normal, other than mild vascular calcification. Small and large bowel within the abdomen is normal. There is no hernia identified. Pelvis shows normal structures with prostatic calcification incidentally noted. No adenopathy, mass, or inguinal hernia identified. IMPRESSION: 1. Normal CT abdomen and pelvis. MICHELET:judith DICTATED 09/22/2007 @ 13:45 end of result us U Unknown IMG [facility] RAD HISTORICAL Final Result * CT ABDOMEN W CONTRAST (09/22/2007 12:00 AM EDT) Anatomical Region Laterality Modality Other 09/22/2007 09/22/2007 Narrative 09/22/2007 12:00 AM EDT Name: DOMINGO KOWALSKI : 1950 VERIFIED [facility] Reason: CT A/P Dict.Staff: BRENDA THOMAS [id number] Verified By: JE PATEL Ruben: 09/24/07 7:43 am Exams: CT-ABDOMEN WITH CONTRAST CT-PELVIS WITH CONTRAST CT ABDOMEN AND PELVIS WITH CONTRAST, 09/22/2007. INDICATIONS: Left-sided abdominal pain, possible hernia. Abdomen and pelvis CT with 100ml of Isovue 370 intravenous contrast material. The lung bases are clear. The liver, spleen, pancreas, gallbladder, adrenal glands, kidneys, and retroperitoneum are normal, other than mild vascular calcification. Small and large bowel within the abdomen is normal. There is no hernia identified. Pelvis shows normal structures with prostatic calcification incidentally noted. No adenopathy, mass, or inguinal hernia identified. IMPRESSION: 1. Normal CT abdomen and pelvis. MICHELET:sarahd DICTATED 09/22/2007 @ 13:45 end of result Procedure Note Unknown, U - 08/28/2009 Name: DOMINGO KOWALSKI : 1950 VERIFIED [facility] Reason: CT A/P Dict.Staff: BRENDA THOMAS [id number] Verified By: JE PATEL Ruben: 09/24/07 7:43 am Exams: CT-ABDOMEN WITH CONTRAST CT-PELVIS WITH CONTRAST CT ABDOMEN AND PELVIS WITH CONTRAST, 09/22/2007. INDICATIONS: Left-sided abdominal pain, possible hernia. Abdomen and pelvis CT with 100ml of Isovue 370 intravenous contrast material. The lung bases are clear. The liver, spleen, pancreas, gallbladder, adrenal glands, kidneys, and retroperitoneum are normal, other than mild vascular calcification. Small and large bowel within the abdomen is normal. There is no hernia identified. Pelvis shows normal structures with prostatic calcification incidentally noted. No adenopathy, mass, or inguinal hernia identified. IMPRESSION: 1. Normal CT abdomen and pelvis. MICHELET:judith DICTATED 09/22/2007 @ 13:45 end of result us U Unknown IMG [facility] RAD HISTORICAL Final Result Visit Diagnoses Diagnosis Start Date Abnormal cardiovascular function study Nonspecific abnormal unspecified cardiovascular function study 12/27/2011 HTN (hypertension), malignant Essential hypertension, malignant 12/27/2011 Dyslipidemia Other and unspecified hyperlipidemia 12/27/2011 FH: CAD (coronary artery disease) Family history of ischemic heart disease 12/27/2011 Chronic back pain Backache, unspecified 12/27/2011 Abnormal cardiovascular function study Nonspecific abnormal unspecified cardiovascular function study 12/27/2011 HTN (hypertension), malignant Essential hypertension, malignant 12/27/2011 Dyslipidemia Other and unspecified hyperlipidemia 12/27/2011 FH: CAD (coronary artery disease) Family history of ischemic heart disease 12/27/2011 Chronic back pain Backache, unspecified 12/27/2011 Abnormal finding on cardiovascular stress test Other nonspecific abnormal cardiovascular system function study 01/11/2012 Acute ischemic heart disease (HCC) Acute myocardial infarction, unspecified site, episode of care unspecified 01/11/2012 HTN (hypertension), malignant Essential hypertension, malignant 01/11/2012 Chest pain Chest pain, unspecified 01/11/2012 CAD (coronary artery disease) Coronary atherosclerosis of unspecified type of vessel, [place] or graft 02/14/2012 HTN (hypertension), malignant Essential hypertension, malignant 02/14/2012 Dyslipidemia Other and unspecified hyperlipidemia 02/14/2012 CAD (coronary artery disease) Coronary atherosclerosis of unspecified type of vessel, [place] or graft 03/05/2012 HTN (hypertension), malignant Essential hypertension, malignant 03/05/2012 Dyslipidemia Other and unspecified hyperlipidemia 03/05/2012 CAD (coronary artery disease) Coronary atherosclerosis of unspecified type of vessel, [place] or graft 05/31/2012 HTN (hypertension), malignant Essential hypertension, malignant 05/31/2012 Dyslipidemia Other and unspecified hyperlipidemia 05/31/2012 COPD (chronic obstructive pulmonary disease) (HCC) Chronic airway obstruction, not elsewhere classified 05/31/2012 Chest pain Chest pain, unspecified 12/07/2012 Dizziness Dizziness and giddiness 12/07/2012 CAD (coronary artery disease) Coronary atherosclerosis of unspecified type of vessel, [place] or graft 12/07/2012 HTN (hypertension), malignant Essential hypertension, malignant 12/07/2012 Dyslipidemia Other and unspecified hyperlipidemia 12/07/2012 CAD (coronary artery disease) Coronary atherosclerosis of unspecified type of vessel, [place] or graft 12/10/2012 HTN (hypertension), malignant Essential hypertension, malignant 12/10/2012 Dyslipidemia Other and unspecified hyperlipidemia 12/10/2012 Chest pain Chest pain, unspecified 12/10/2012 Dizziness Dizziness and giddiness 12/10/2012 CAD (coronary artery disease) Coronary atherosclerosis of unspecified type of vessel, [place] or graft 12/10/2012 HTN (hypertension), malignant Essential hypertension, malignant 12/10/2012 Dyslipidemia Other and unspecified hyperlipidemia 12/10/2012 Chest pain Chest pain, unspecified 12/10/2012 Dizziness Dizziness and giddiness 12/10/2012 CAD (coronary artery disease) Coronary atherosclerosis of unspecified type of vessel, [place] or graft 12/10/2012 HTN (hypertension), malignant Essential hypertension, malignant 12/10/2012 Dyslipidemia Other and unspecified hyperlipidemia 12/10/2012 CAD (coronary artery disease) Coronary atherosclerosis of unspecified type of vessel, [place] or graft 01/25/2013 HTN (hypertension), malignant Essential hypertension, malignant 01/25/2013 Dyslipidemia Other and unspecified hyperlipidemia 01/25/2013 Claudication Peripheral vascular disease, unspecified 03/19/2013 CAD (coronary artery disease) Coronary atherosclerosis of unspecified type of vessel, [place] or graft 07/26/2013 HTN (hypertension), malignant Essential hypertension, malignant 07/26/2013 HTN (hypertension), malignant Essential hypertension, malignant 09/17/2013 ASHD (arteriosclerotic heart disease) Coronary atherosclerosis of unspecified type of vessel, [place] or graft 09/17/2013 Dyslipidemia Other and unspecified hyperlipidemia 09/17/2013 CAD (coronary artery disease) Coronary atherosclerosis of unspecified type of vessel, [place] or graft 01/27/2014 HTN (hypertension), malignant Essential hypertension, malignant 01/27/2014 Dyslipidemia Other and unspecified hyperlipidemia 01/27/2014 COPD (chronic obstructive pulmonary disease) (HCC) Chronic airway obstruction, not elsewhere classified 01/27/2014 HTN (hypertension), malignant Essential hypertension, malignant 08/06/2014 Obstructive sleep apnea Obstructive sleep apnea (adult) (pediatric) 01/30/2015 Snoring Other dyspnea and respiratory abnormality 01/30/2015 Chronic fatigue Other malaise and fatigue 01/30/2015 Centrilobular emphysema (HCC) Other emphysema 01/30/2015 ASHD (arteriosclerotic heart disease) Coronary atherosclerosis of unspecified type of vessel, [place] or graft 01/30/2015 SUSAN (obstructive sleep apnea) Obstructive sleep apnea (adult) (pediatric) 02/13/2015 Centrilobular emphysema (HCC) Other emphysema 02/13/2015 Obesity (BMI 30.0-34.9) Obesity, unspecified 02/13/2015 Obstructive sleep apnea Obstructive sleep apnea (adult) (pediatric) 04/01/2015 Coronary artery disease involving [place] coronary artery of [place] heart without angina pectoris 08/17/2015 HTN (hypertension), malignant Essential hypertension, malignant 08/17/2015 Dyslipidemia Other and unspecified hyperlipidemia 08/17/2015 Coronary artery disease involving [place] coronary artery of [place] heart without angina pectoris 12/19/2016 HTN (hypertension), malignant Essential hypertension, malignant 12/19/2016 Dyslipidemia Other and unspecified hyperlipidemia 12/19/2016 SUSAN (obstructive sleep apnea) Obstructive sleep apnea (adult) (pediatric) 12/19/2016 Coronary artery disease involving [place] coronary artery of [place] heart without angina pectoris 03/30/2017 HTN (hypertension), malignant Essential hypertension, malignant 03/30/2017 Dyslipidemia Other and unspecified hyperlipidemia 03/30/2017 SUSAN (obstructive sleep apnea) Obstructive sleep apnea (adult) (pediatric) 03/30/2017 Coronary artery disease involving [place] coronary artery of [place] heart without angina pectoris 10/26/2017 Benign essential HTN Essential hypertension, benign 10/26/2017 Dyslipidemia Other and unspecified hyperlipidemia 10/26/2017 Cerebral vascular disease Cerebrovascular disease, unspecified 10/26/2017 Coronary artery disease involving [place] coronary artery of [place] heart without angina pectoris 03/28/2018 HTN (hypertension), malignant Essential hypertension, malignant 03/28/2018 Cerebral vascular disease Cerebrovascular disease, unspecified 03/28/2018 Dyslipidemia Other and unspecified hyperlipidemia 03/28/2018 SUSAN (obstructive sleep apnea) Obstructive sleep apnea (adult) (pediatric) 03/28/2018 Coronary artery disease involving [place] coronary artery of [place] heart without angina pectoris 03/11/2019 HTN (hypertension), malignant Essential hypertension, malignant 03/11/2019 Dyslipidemia Other and unspecified hyperlipidemia 03/11/2019 Coronary artery disease involving [place] coronary artery of [place] heart without angina pectoris 03/11/2020 Essential hypertension Unspecified essential hypertension 03/11/2020 Dyslipidemia Other and unspecified hyperlipidemia 03/11/2020 SUSAN (obstructive sleep apnea) Obstructive sleep apnea (adult) (pediatric) 03/11/2020 Cerebral vascular disease Cerebrovascular disease, unspecified 03/11/2020 ASHD (arteriosclerotic heart disease) Coronary atherosclerosis of unspecified type of vessel, [place] or graft 04/01/2021 TIA (transient ischemic attack) Unspecified transient cerebral ischemia 04/01/2021 ASHD (arteriosclerotic heart disease) Coronary atherosclerosis of unspecified type of vessel, [place] or graft 09/14/2021 Essential hypertension Unspecified essential hypertension 09/14/2021 Pure hypercholesterolemia 09/14/2021 ASHD (arteriosclerotic heart disease) Coronary atherosclerosis of unspecified type of vessel, [place] or graft 10/29/2021 TIA (transient ischemic attack) Unspecified transient cerebral ischemia 10/29/2021 ASHD (arteriosclerotic heart disease) Coronary atherosclerosis of unspecified type of vessel, [place] or graft 10/29/2021 TIA (transient ischemic attack) Unspecified transient cerebral ischemia 10/29/2021 ASHD (arteriosclerotic heart disease) Coronary atherosclerosis of unspecified type of vessel, [place] or graft 04/12/2022 Right knee pain, unspecified chronicity 01/05/2024 Right knee pain, unspecified chronicity 01/05/2024 Knee strain, right, initial encounter 01/05/2024 Chest pain Chest pain, unspecified 01/11/2012 Care Teams Surgical Processor Relationship Specialty Start Date End Date Seng Hall MD PCP - General Family Medicine 03/05/12
[2024-10-27 09:16] LABS: Hepatitis B Surface Antigen Negative (Negative)
== END 2024-10-25 23:59 | disposition home or self-care (01) ==
LOC: LAB.DROPOF 22:45
PROVIDERS: PCP Family Medicine; Visit Provider Family Medicine
DX: Z12.5 Encounter for screening for malignant neoplasm of prostate (principal); I10 Essential (primary) hypertension; I25.10 Atherosclerotic heart disease of native coronary artery without angina pectoris; R25.2 Cramp and spasm
CPT/HCPCS: 80053; 83735; 86803; 87340; 87389; G0103

== ENCOUNTER 2024-12-26 16:04 | Outpatient (CLI) | payer MEDICARE, SELFPAY ==
[2024-12-26 16:32] LABS: Alanine Aminotransferase 29 U/L (12-78); Albumin Level 4.1 g/dl (3.5-5.0); Albumin/Globulin Ratio 2.0 (1.1-1.8); Alkaline Phosphatase 89 U/L (38-126); Anion Gap 12.1 mEq/L (5-15); Aspartate Amino Transferase 39 U/L (17-59); Bilirubin,Total 0.7 mg/dl (0.2-1.3); Blood Urea Nitrogen 35 mg/dl (9-20); Calcium 9.4 mg/dl (8.4-10.2); Carbon Dioxide 26 mmol/L (22.0-30.0); Chloride 104 mmol/L (98-107); Creatinine,Serum 1.40 mg/dl (0.66-1.25); Estimated Glomerular Filt Rate 50 ml/min (>60); GFR (African American) 60 ML/MIN (>60); Globulin 2.1 g/dL (1.3-3.2); Glucose 113 mg/dl (74-100); Magnesium 2.4 mg/dl (1.6-2.3); Potassium 4.1 mmoL/L (3.5-5.1); Sodium 138 mmol/L (136-145); Total Protein,Serum 6.2 g/dl (6.3-8.2); Uric Acid 8.2 mg/dl (3.5-8.5)
[2024-12-26 16:37] LABS: C-Reactive Protein 3.0 mg/L (0-4)
[2024-12-27 14:18] LABS: RA Latex Turbid. <10.0 IU/mL (<14.0)
[2024-12-27 15:40] LABS: Antinuclear Antibodies, IFA Negative (.)
--- OUTSIDE RECORDS SUMMARY | 2024-12-30 16:06 | XMS_ITS | Clinical Summary ---
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 Name Role Phone Gene FRAZIER, [facility] Conditions or Problems Problem Name Problem Code Onset Date Status Entry Date Provider Comment Standard Description Annotate DEGENERATIVE DISC DISEASE, LUMBAR SPINE [id number] (SNOMED CT) Active 12/18 Nona Olson MA Degeneration of lumbar intervertebral disc Medications Medication Instructions Start Date Stop Date Generic Name [facility] Provider XALATAN 0.005 % SOLN 1 drop nightly [place] 6 LATANOPROST [id number] Nona Olson MA LISINOPRIL-HYD ROCHLOROTHIAZI DE 20-12.5 MG TABS 1 daily [facility] 6 LISINOPRIL-HYDR OCHLOROTHIAZIDE [id number] Nona Olson MA EQ OMEPRAZOLE 20 MG TBEC 1-2 daily [facility] 6 OMEPRAZOLE [id number] Nona Olson MA ZANAFLEX 4 MG ORAL CAPSULE 1 tid [facility] 6 TIZANIDINE HCL [id number] Nona Olson MA VICODIN ES 7.5-750 MG TABS 1 tid [facility] 6 HYDROCODONE-ARMANI TAMINOPHEN [id number] Nona Olson MA Medications Administered No information [...]
--- OUTSIDE RECORDS SUMMARY | 2024-12-30 16:07 | XMS_ITS | Continuity of Care Document ---
Author Organization [facility] [place] [address] Address [address] [place] [address] Care Team Providers Care Automotive Brake Specialist Name Role Phone Seng Hall MD Primary Care Provider Encounters Date Type Department Care Team Description 02/21/2024 [place]ill [place] [address] Randy Nunn MD Medication Refill 01/05/2024 9:15 AM EDT Ancillary Procedure [facility] [address] [place] [address] Jordan Qureshi APRN Right knee pain, unspecified chronicity 01/05/2024 9:00 AM EDT Office Visit [facility] [address] [place] [address] Jordan Qureshi APRN Knee strain, right, initial encounter (Primary Dx); Right knee pain, unspecified chronicity 12/23/2023 Refill [facility] [address] [address] Randy Nunn MD Medication Refill 07/16/2023 Refill [facility] [address] [address] Randy Nunn MD Medication Refill 06/12/2023 Refill SEP &[address] [address] Randy Nunn MD Medication Refill 04/22/2023 Refill SEP &[address] [address] Randy Nunn MD Medication Refill 04/09/2023 Refill [facility] &[address] [address] Randy Nunn MD Medication Refill 11/09/2022 Telephone SE[facility] &[place] [address] Randy Nunn MD Medication Refill 08/22/2022 Refill [facility] [address] Randy Nunn MD Medication Refill 06/08/2022 Refill [facility]PT[facility] [address] [place] [phone] Randy Nunn MD Medication Refill 06/08/2022 Telephone [facility]&[place] [phone] Randy Nunn MD Medication Refill 04/12/2022 10:20 AM EST Office Visit SEP &[address] [address] Randy Nunn MD ASHD (arteriosclerotic heart disease) (Primary Dx) 03/17/2022 Refill [facility] [address] [address] Randy Nunn MD Medication Refill 03/16/2022 Refill [facility] NPTF[facility] [address] [place] [phone] Randy Nunn MD Medication Refill 10/29/2021 Travel 10/29/2021 10:59 AM EDT - 10/29/2021 11:59 PM EDT Hospital Encounter [facility] [address] [place] [address] [place] [address] Randy Nunn MD ASHD (arteriosclerotic heart disease); TIA (transient ischemic attack) Discharge Disposition: Home or Self Care 10/29/2021 10:58 AM EDT Hospital Encounter [facility] [address] [place] [address] [place] [phone] Randy Nunn MD ASHD (arteriosclerotic heart disease); TIA (transient ischemic attack) Discharge Disposition: Home or Self Care 09/14/2021 9:20 AM EDT Office Visit [facility] [address] [address] Ranyd Nunn MD ASHD (arteriosclerotic heart disease) (Primary Dx); Essential hypertension; Pure hypercholesterolemia 08/12/2021 Telephone [facility] [address] [place] [phone] Randy Nunn MD Cardiology Clearance 07/19/2021 Refill [facility] [place] [address] [place] [address] Russell Salvador MD Medication Refill 06/07/2021 Refill [facility] [place] [address] [place] [address] Russell Salvador MD Medication Refill 05/04/2021 Telephone [facility] [address] [address] Randy Nunn MD Cardiology Clearance 04/20/[address] [facility] [address] [place] [phone] Randy Nunn MD Schedule Appointment (echo/carotid) 04/08/2021 Refill [facility] [place] [address] [place] [address] Russell Salvador MD Medication Refill 04/01/2021 Travel 04/01/2021 10:40 AM EST Office [place] [address] Randy Nunn MD ASHD (arteriosclerotic heart disease) (Primary Dx); TIA (transient ischemic attack) 03/15/2021 Refill [facility] [address] [address] Russell Salvador MD Medication Refill 03/09/2021 Refill [facility] [address] [address] Russell Salvador MD Medication Refill 03/05/2021 Refill [facility] [address] [address] Russell Salvador MD Medication Refill 01/16/2021 Refill [facility] [address] [address] Russell Salvador MD Medication Refill 05/14/2020 Refill [facility] [address] [address] Russell Salvador MD Medication Refill 04/08/2020 Refill [facility] [address] [address] Russell Salvador MD Medication Refill 04/06/2020 Refill [facility] [address] [address] Russell Salvador MD Medication Refill 03/11/2020 Travel 03/11/2020 10:00 AM EDT Office Visit [facility] [address] [address] Russell Salvador MD Coronary artery disease involving lumbee coronary artery of lumbee heart without angina pectoris (Primary Dx); Essential hypertension; Dyslipidemia; SUSAN (obstructive sleep apnea); Cerebral vascular disease 03/18/2019 Telephone [facility] [address] [address] Russell Salvador MD Other 03/11/2019 10:30 AM EDT Office Visit [facility]&[address] [address] Russell Salvador MD Coronary artery disease involving lumbee coronary artery of lumbee heart without angina pectoris (Primary Dx); HTN (hypertension), malignant; Dyslipidemia 03/31/[address] [address] Russell Salvador MD Medication Refill 03/28/2018 10:30 AM EST Office Visit [facility]&[address] [address] Russell Salvador MD Coronary artery disease involving lumbee coronary artery of lumbee heart without angina pectoris (Primary Dx); HTN (hypertension), malignant; Cerebral vascular disease; Dyslipidemia; SUSAN (obstructive sleep apnea) 02/06/[address] [address] Russell Salvador MD Medication Refill 10/26/2017 9:30 AM EDT Office Visit [facility]&[address] [address] Rachel Alcocer APRN Coronary artery disease involving lumbee coronary artery of lumbee heart without angina pectoris (Primary Dx); Benign essential HTN; Dyslipidemia; Cerebral vascular disease 10/19/[address] [phone] Russell Salvador MD Appointment Needed 03/30/2017 10:30 AM EST Office Visit [address] [phone] Russell Salvador MD Coronary artery disease involving lumbee coronary artery of lumbee heart without angina pectoris (Primary Dx); HTN (hypertension), malignant; Dyslipidemia; SUSAN (obstructive sleep apnea) 03/05/2017 Refill [facility] [place] [address], [phone] Russell Salvador MD Medication Refill 02/08/2017 Telephone [facility] [address], [place] [phone] Russell Salvador MD Cardiology Clearance (Transforaminal LESI on 03/08/2017) 01/17/2017 Refill [facility] [place] [address] Russell Salvador MD Medication Refill 12/19/2016 4:00 PM EDT Office [place] [address] Russell Salvador MD Coronary artery disease involving lumbee coronary artery of lumbee heart without angina pectoris (Primary Dx); HTN (hypertension), malignant; Dyslipidemia; SUSAN (obstructive sleep apnea) 12/04/2016 Refill [place] [address] Russell Salvador MD Medication Refill 09/23/2016 Refill [place] [address] Russell Salvador MD Medication Refill 09/23/2016 Telephone [place] [address] Russell Salvador MD Appointment Needed 08/31/2016 Refill [facility] [address] [address] Russell Salvador MD Medication Refill 08/31/2015 Telephone [facility] [place] [phone] Russell Salvador MD Visit Follow Up 08/17/2015 11:20 AM EDT Office Visit [facility] [place] [address] [phone] Russell Salvador MD Coronary artery disease involving lumbee coronary artery of lumbee heart without angina pectoris (Primary Dx); HTN (hypertension), malignant; Dyslipidemia 06/08/2015 Telephone [facility] [address] [place] [address] Russell Salvador MD Medication Refill 04/01/2015 8:00 PM EST - 04/01/2015 11:59 PM EST Hospital Encounter [facility] Sleep Disorder [place] [address] [place] [address] Obstructive sleep apnea (Primary Dx) Discharge Disposition: Home or Self Care 02/13/2015 1:28 PM EDT - 02/13/2015 11:59 PM EDT Hospital Encounter [facility] Sleep Disorder [place] [address] [place] [address] Farrah Michael MD SUSAN (obstructive sleep apnea) (Primary Dx); Centrilobular emphysema (HCC); Obesity (BMI 30.0-34.9) Discharge Disposition: Home or Self Care 01/30/2015 8:00 PM EDT - 01/30/2015 11:59 PM EDT Hospital Encounter [facility] Sleep Disorder [place] [address] [place] [address] Obstructive sleep apnea (Primary Dx) Discharge Disposition: Home or Self Care 01/30/2015 10:15 AM EDT - 01/30/2015 7:59 PM EDT Hospital Encounter [facility] Sleep Disorder [place] [address] [place] [address] Farrah Michael MD Snoring (Primary Dx); Chronic fatigue; Centrilobular emphysema (HCC); ASHD (arteriosclerotic heart disease) Discharge Disposition: Home or Self Care 09/11/2014 Refill [facility] [address] [place] [address] Russell Salvador MD Medication Refill 09/09/2014 Abstract [facility] [address] [phone] Russell Salvador MD 08/06/2014 2:30 PM EDT Office Visit [facility] [address] [place] [facility] [place] [address] Russell Salvador MD HTN (hypertension), malignant (Primary Dx) 06/23/2014 Refill [facility] [address] [place] [address] Russell Salvador MD Medication Refill 03/21/2014 Telephone [facility] [address] [place] [facility] [place] [facility] [address] Russell Salvador MD Other 02/07/2014 Telephone [facility] [address] [place] [address] Russell Salvador MD Visit Follow Up (01/27/14 DC appt) 01/27/2014 1:00 PM EDT Office Visit [facility] [address] [place] [facility] [place] [address] Russell Salvador MD CAD (coronary artery disease) (Primary Dx); HTN (hypertension), malignant; Dyslipidemia; COPD (chronic obstructive pulmonary disease) (HCC) 11/09/2013 Refill [facility] [address] [place] [address] Russell Salvador MD Medication Refill 09/17/2013 2:00 PM EDT Office Visit [facility] [address] [place] [facility] [place] [facility] [address] Liza Durbin APRN HTN (hypertension), malignant (Primary Dx); ASHD (arteriosclerotic heart disease); Dyslipidemia 07/26/2013 1:30 PM EDT Office Visit [facility] [address] [place] [address] Russell Salvador MD CAD (coronary artery disease) (Primary Dx); HTN (hypertension), malignant 03/24/2013 Refill [facility] [address] [address] Liza Durbin APRN Medication Refill 03/22/2013 Telephone [facility] [address] [phone] Russell Salvador MD Medication Question 03/19/2013 1:29 PM EST - 03/19/2013 11:59 PM EST Hospital Encounter [facility] [address] [place] [phone] Seng Hall MD Claudication Discharge Disposition: Home or Self Care 03/15/2013 Telephone [facility] [address] [phone] Russell Salvador MD Cardiology Clearance 01/28/2013 Telephone [facility] [address] [phone] Liza Durbin APRN Visit Follow Up 01/25/2013 8:40 AM EDT Office Visit [facility] [address] [phone] Liza Durbin APRN CAD (coronary artery disease) (Primary Dx); HTN (hypertension), malignant; Dyslipidemia 12/26/2012 Refill [facility] H&[address] [address] Russell Salvador MD Medication Refill 12/25/2012 Refill [facility] [address] [facility] [place] [address] Bing Shen APRN Medication Refill 12/11/2012 Telephone [facility] [address] [phone] Liza Durbin APRN Results 12/10/2012 8:25 AM EDT - 12/10/2012 8:56 AM EDT Hospital Encounter [facility] [place] [address] CAD (coronary artery disease) (Primary Dx); HTN (hypertension), malignant; Dyslipidemia Discharge Disposition: Home or Self Care 12/10/2012 8:57 AM EDT Hospital Encounter [facility] [address] [place] [address] Liza Durbin, ASSET PROTECTION REPRESENTATIVE Chest pain; Dizziness; CAD (coronary artery disease); HTN (hypertension), malignant; Dyslipidemia Discharge Disposition: Home or Self Care 12/10/2012 8:58 AM EDT - 12/10/2012 11:59 PM EDT Hospital Encounter [facility] [address] [place] [address] Joel Durbina, ASSET PROTECTION REPRESENTATIVE Chest pain; Dizziness; CAD (coronary artery disease); HTN (hypertension), malignant; Dyslipidemia Discharge Disposition: Home or Self Care 12/07/2012 Telephone [facility]&V [place] [phone] Russell Salvador MD Other 12/07/2012 11:00 AM EDT Office Visit [facility] [place] [phone] Joel Durbina, ASSET PROTECTION REPRESENTATIVE Chest pain (Primary Dx); Dizziness; CAD (coronary artery disease); HTN (hypertension), malignant; Dyslipidemia 12/03/2012 Telephone SEP &V [address] [phone] Russell Salvador MD Appointment Needed 11/13/2012 Telephone SEP &[address] [address] Russell Salvador MD Medication Refill 05/31/2012 11:30 AM EST Office Visit [facility] &V [address] [address] Russell Salvador MD CAD (coronary artery disease) (Primary Dx); HTN (hypertension), malignant; Dyslipidemia; COPD (chronic obstructive pulmonary disease) (HCC) 05/29/2012 Abstract [facility] [address] [phone] Joanna Penn, Gold 04/23/2012 Refill [facility] [address] [phone] Russell Salvador MD Medication Refill 04/23/2012 Telephone [facility]V [address] [address] Russell Salvador MD Medication Refill 03/19/2012 Telephone [facility] [address] [phone] Russell Salvador MD Appointment Needed 03/05/2012 8:50 AM EDT - 03/05/2012 11:59 PM EDT Hospital Encounter [facility] [address] [place], [facility] CAD (coronary artery disease); HTN (hypertension), malignant; Dyslipidemia Discharge Disposition: Home or Self Care 02/24/2012 Telephone [facility] H&V [address] [phone] Liza Durbin APRN Other 02/14/2012 8:20 AM EDT Office Visit [facility] [address] [phone] Liza Durbin APRN CAD (coronary artery disease); HTN (hypertension), malignant; Dyslipidemia 02/01/2012 Telephone [facility] [address] [address] Russell Salvador MD Appointment Needed 01/23/2012 Telephone [facility] [address] [phone] Russell Salvador MD Medication Refill 01/11/2012 7:35 AM EDT - 01/12/2012 1:22 PM EDT Hospital Encounter [facility] [place] [address] Russell Salvador MD Abnormal finding on cardiovascular stress test (Primary Dx); Acute ischemic heart disease (HCC); HTN (hypertension), malignant; Chest pain Discharge Disposition: Home or Self Care 01/11/2012 9:15 AM EDT - 01/11/2012 10:15 AM EDT Surgery Russell Salvador MD CARDIAC PROCEDURE-SENIOR CORE JAVA DEVELOPER ONLY 12/27/2011 3:15 PM EDT - 12/27/2011 11:59 PM EDT Hospital Encounter [facility] [place], [place] [phone] Abnormal cardiovascular function study; HTN (hypertension), malignant; Dyslipidemia; FH: CAD (coronary artery disease); Chronic back pain Discharge Disposition: Home or Self Care 12/27/2011 1:00 PM EDT Office Visit [facility] [address] [address] [place] [address] Russell Salvador MD Abnormal cardiovascular function study; HTN (hypertension), malignant; Dyslipidemia; FH: CAD (coronary artery disease); Chronic back pain 12/23/2011 Telephone [facility] [address] [place] [address] Russell Salvador MD Release of [...] pulmonary disease) Coronary artery disease invo lving lumbee coronary artery of lumbee heart without angina pectoris 02/14/2012 Abnormal cardiovascular [...] Sister Social History Smoking Status as of 12/30/2024 Tobacco Use Types Packs/Day Years Used Date [...] on file Medical Devices Implanted Type Area Energy Efficiency Specialist Device Identifier Shelf Expiration Date Model / Serial / Lot Stent Coronary Vision Rx 4.00mm X 15mm - [id number] Implanted:Qty: 1 on 01/11/2012 by Russell Salvador MD at [facility] SENIOR CORE JAVA DEVELOPER Explanted:at [facility] SENIOR CORE JAVA DEVELOPER (Quantity not on file) Stent-Vis ion N/A: RCA [facility] LAB:VASC DEV [id number] / / [id number] Procedures Procedure Name Priority Date/Time Associated Diagnosis Comments XR KNEE RIGHT AP LATERAL AND SUNRISE STANDING Routine 01/05/2024 9:22 AM EDT Right knee pain, unspecified chronicity EC ECHOCARDIOGRAM COMPLETE W DOPPLER AND COLOR FLOW MAPPING Routine 10/29/2021 1:25 PM EDT ASHD (arteriosclerotic heart disease) TIA (transient ischemic attack) [place] US CAROTID DUPLEX BILATERAL Routine 10/29/2021 11:29 AM EDT ASHD (arteriosclerotic heart disease) TIA (transient ischemic attack) POCT EKG Routine 04/01/2021 11:19 AM EST ASHD (arteriosclerotic heart disease) LIPID PANEL REFLEX Routine 08/19/2014 6: 45 PM EDT [facility] LOWER EXTREMITY ARTERIAL PHYSIOLOGICAL Routine 03/19/2013 2:07 [...] STRIPS 01/16/2012 5:35 PM EDT SCANNED CARDIAC SENIOR CORE JAVA DEVELOPER 01/16/2012 5:35 PM EDT SCANNED RHYTHM STRIPS 01/11/2012 7:48 PM EDT [place] US CAROTID DUPLEX BILATERAL Routine 01/11/2012 4:09 PM EDT POCT ACTIVATED CLOTTING TIME Routine 01/11/2012 1:30 PM EDT SCANNED RHYTHM STRIPS 01/11/2012 12:30 PM EDT POCT ACTIVATED CLOTTING TIME Routine 01/11/2012 11:30 AM EDT POCT ACTIVATED CLOTTING TIME Routine 01/11/2012 10:23 AM EDT CARDIAC PROCEDURE-SENIOR CORE JAVA DEVELOPER ONLY 01/11/2012 9:33 AM EDT + STRESS TEST Special Needs SYBIL / CPT [id number] CBC Routine 12/27/2011 3:34 PM EDT Abnormal [...] encounter for x-ray imaging result us Jordan Qureshi APRN IMG DIAGNOSTIC IMAGING ORDERABL ES Final Result [...] 29 mmHg, consistent with no pulmonary hypertension. us Randy Nunn MD IMG ECHO ORDERABLES Final Res ult * [place] US CAROTID DUPLEX BILATERAL (10/29/2021 11:29 AM [...] is included. 04/01/2021 11:1 9 AM EST Result Jorge Luis Nunn MD POINT OF CARE CARDIOLOGY Ariela [...] STRUCTURE / Unknown 08/19/2014 6:45 PM EDT us Seng Hall MD CHEMISTRY ORDERABLES Final Resul t SEP OFFICE * [place] US LOWER EXTREMITY ARTERIAL PHYSIOLOGICAL (03/19/2013 2:07 PM [...] Index Test SiteLeft (mmHg) Index 122 NA [id number] NA 186 1.43 Posterior [id number] 1.43 158 1.22 Dorsalis [id number] 1.16 SEGMENTAL BP FINDINGS Normal lower extremity [...] T esting Narrative 12/11/2012 3:[address] [facility] [employer] INTERPRETATION Name: Cristobal Velarde Date: [...] Procedure Note Sky Patel MD - 12/11/2012 [facility] [employer] INTERPRETATION Name: Cristobal Velarde Date: [...] scan report pending. 10. us Liza Durbin ASSET PROTECTION REPRESENTATIVE IMG STRESS ORDERABLES Final Res ult * CBC (12/10/2012 8:34 AM EDT) Only the most recent of2 resultswithin the time period is included. WBC 9.1 4.0 - 11.0 x10(3)/mcL [facility] RBC 4.76 4.30 - 5.81 x10(6)/mcL [facility] Hgb 15.3 13.5 - 17.1 gm/dL [facility] Hct 43.9 38.9 - 51.6 % [facility] MCV 92.3 82.5 - 99.8 fL [facility] MCH 32.2 27.0 - 34.3 pg [facility] MCHC 34.8 32.1 - 35.3 gm/dL [facility] RDW 13.2 11.5 - 15.0 % [facility] Platelet 221 144 - 423 x10(3)/mcL [facility] MPV 9.7 6.8 - 10.8 fL [facility] Blood specimen (specimen) UPPER LIMB STRUCTURE / Unknown 12/10/2012 8:34 AM EDT 12/10/2012 8:41 AM EDT Liza Durbin ASSET PROTECTION REPRESENTATIVE HEMATOLOGY ORDERABLES Final Res ult [facility] [address] [place] [address] * HEPATIC FUNCTION PANEL (12/10/2012 8:34 AM EDT) Only the most recent of2 resultswithin the time period is included. Pathologist [facility] Total Protein 7.1 6.0 - 8.2 gm/dL [facility] Albumin 4.3 3.4 - 4.8 gm/dL [facility] Bili Direct 0.1 0.0 - 0.4 mg/dL [facility] Bili Total 0.4 0.1 - 1.4 mg/dL [facility] AST 19 16 - 55 IU/L [facility] ALT 18 6 - 72 IU/L [facility] Alk Phos 77 41 - 119 IU/L [facility] Blood specimen (specimen) UPPER LIMB STRUCTURE / Unknown 12/10/2012 8:34 AM EDT 12/10/2012 8:41 AM EDT Liza Durbin ASSET PROTECTION REPRESENTATIVE CHEMISTRY ORDERABLES Final Resu lt Performing Organization Address [facility] Co de Phone Number [facility] [address] [place] [address] * (ABNORMAL) LIPID SCREEN (12/10/2012 8:34 AM EDT) Pathologist [facility] Cholesterol 170 <=200 mg/dL [facility] Comment: < 200 Desirable 200 - 239 Borderline High >= 240 High Triglyceride 112 <=150 mg/dL [facility] Comment: < 150 Normal 150 - 199 Borderline High 200 - 499 High >= 500 Very High HDL 40 >=40 mg/dL [facility] Comment: > 60 Optimal 40 - 60 Acceptable < 40 Low LDL Calculated 108(H) <=100 mg/dL [facility] Comment: < 100 Optimal 100 - 129 Near or above optimal 130 - 159 Borderline High 160 - 189 High >= 190 Very High Blood specimen (specimen) UPPER LIMB STRUCTURE / Unknown 12/10/2012 8:34 AM EDT 12/10/2012 8:41 AM EDT Liza Durbin APRN CHEMISTRY ORDERABLES Edited Res ult - Final Performing Organization Address [facility] Co de Phone Number [facility] [address] [place] [address] * BASIC METABOLIC PANEL (12/10/2012 8:34 AM EDT) Only the most recent of3 resultswithin the time period is included. Pathologist [facility] Sodium 141 135 - 143 mmol/L [facility] Potassium 3.9 3.5 - 5.0 mmol/L [facility] Chloride 104 98 - 108 mmol/L [facility] Total CO2 26 22 - 31 mmol/L [facility] Anion Gap 11 7 - 16 mmol/L [facility] Calcium 9.4 8.6 - 10.3 mg/dL [facility] Glucose Lvl 99 70 - 100 mg/dL [facility] BUN 15 8 - 23 mg/dL [facility] Creatinine 1.0 0.7 - 1.3 mg/dL [facility] GFR Afr Am >60 [facility] Comment: GFR is estimated using creatinine, [...] or less GFR Non Afr Am >60 [facility] Blood specimen (specimen) UPPER LIMB STRUCTURE / Unknown 12/10/2012 8:34 AM EDT 12/10/2012 8:41 AM EDT Liza Rice ASSET PROTECTION REPRESENTATIVE CHEMISTRY ORDERABLES Final Resu lt Performing Organization Address [facility]/ZIP Co de Phone Number [facility] [address] [place] [address] * LDL, CALCULATED (03/05/2012 7:11 AM EDT) LDL Calculated 89 <=100 mg/dL [facility] Comment: < 100 Optimal 100 - 129 Near or above optimal 130 - 159 Borderline High 160 - 189 High >= 190 Very High Blood specimen (specimen) 03/05/2012 7:11 AM EDT 03/05/2012 9:12 AM EDT Liza Rice ASSET PROTECTION REPRESENTATIVE CHEMISTRY ORDERABLES Final Resu lt Performing Organization Address City/[facility]/ZIP Co de Phone Number [facility] [address] [place] [address] * SCANNED CARDIAC SENIOR CORE JAVA DEVELOPER (01/16/2012 5:35 PM EDT) Narrative Transcriptions Unknown, Unknown - 01/16/2012 5:35 PM EDT us Unknown Unknown [facility] CARDIAC CATH ORDERABLES Ariela l Result * [...] time period is included. ACT 163 sec [facility] Lot Number [facility] Expiration Date [facility] SeriAl # SE LAB Meter [facility] Blood specimen (specimen) 01/11/2012 1:30 PM EDT us Russell Salvador MD POINT OF CARE TEST ORDERABL ES Final Result [facility] [address] [place] [address] * SCANNED EKG (12/27/2011 12:00 AM EDT) [...] EDT Name: DOMINGO Robledo : [address] [facility] Reason: ? METAL FOREIGN BODY EYES ORBIT XRAYS Dict.Staff: DAISY PERDOMO [id number] Verified By: TERRY PATEL Ruben: 02/21/08 7:38 [...] 08/28/2009 Name: DOMINGO Robledo : [address] [facility] Reason: ? METAL FOREIGN BODY EYES [employer] Dict.Staff: DAISY PERDOMO [id number] Verified By: TERRY PATEL Ruben: 02/21/08 7:38 [...] end of result us U Unknown IMG [facility] [place] [facility] RAD HISTORICAL Final Result * CT PELVIS W CONTRAST (09/22/2007 12:00 AM EDT) Anatomical Region Laterality Modality Other 09/22/2007 09/22/2007 Narrative 09/22/2007 12:00 AM EDT Name: DOMINGO KOWALSKI : [address] [facility] Reason: CT A/P Dict.Staff: BRENDA THOMAS [id number] Verified By: JE PATEL Ruben: 09/24/07 7:43 [...] 08/28/2009 Name: DOMINGO KOWALSKI : [address] [facility] Reason: CT A/P Dict.Staff: BRENDA THOMAS [id number] Verified By: JE PATEL Ruben: 09/24/07 7:43 [...] end of result us U Unknown IMG [facility] RAD HISTORICAL Final Result * CT ABDOMEN W CONTRAST (09/22/2007 12:00 AM EDT) Anatomical Region Laterality Modality Other 09/22/2007 09/22/2007 Narrative 09/22/2007 12:00 AM EDT Name: DOMINGO KOWALSKI : [address] [facility] Reason: CT A/P Dict.Staff: BRENDA THOMAS [id number] Verified By: JE PATEL Ruben: 09/24/07 7:43 [...] 08/28/2009 Name: DOMINGO KOWALSKI : [address] [facility] Reason: CT A/P Dict.Staff: BRENDA THOMAS [id number] Verified By: JE PATEL Ruben: 09/24/07 7:43 [...] Coronary atherosclerosis of unspecified type of vessel, lumbee or graft 02/14/2012 HTN (hypertension), malignant Essential hypertension, malignant 02/14/2012 Dyslipidemia Other and unspecified hyperlipidemia 02/14/2012 CAD (coronary artery disease) Coronary atherosclerosis of unspecified type of vessel, lumbee or graft 03/05/2012 HTN (hypertension), malignant Essential hypertension, malignant 03/05/2012 Dyslipidemia Other and unspecified hyperlipidemia 03/05/2012 CAD (coronary artery disease) Coronary atherosclerosis of unspecified type of vessel, lumbee or graft 05/31/2012 HTN (hypertension), malignant Essential hypertension, malignant 05/31/2012 Dyslipidemia Other and unspecified hyperlipidemia 05/31/2012 COPD (chronic obstructive pulmonary disease) (HCC) Chronic airway obstruction, not elsewhere classified 05/31/2012 Chest pain Chest pain, unspecified 12/07/2012 Dizziness Dizziness and giddiness 12/07/2012 CAD (coronary artery disease) Coronary atherosclerosis of unspecified type of vessel, lumbee or graft 12/07/2012 HTN (hypertension), malignant Essential hypertension, malignant 12/07/2012 Dyslipidemia Other and unspecified hyperlipidemia 12/07/2012 CAD (coronary artery disease) Coronary atherosclerosis of unspecified type of vessel, lumbee or graft 12/10/2012 HTN (hypertension), malignant Essential hypertension, malignant 12/10/2012 Dyslipidemia Other and unspecified hyperlipidemia 12/10/2012 Chest pain Chest pain, unspecified 12/10/2012 Dizziness Dizziness and giddiness 12/10/2012 CAD (coronary artery disease) Coronary atherosclerosis of unspecified type of vessel, lumbee or graft 12/10/2012 HTN (hypertension), malignant Essential hypertension, malignant 12/10/2012 Dyslipidemia Other and unspecified hyperlipidemia 12/10/2012 Chest pain Chest pain, unspecified 12/10/2012 Dizziness Dizziness and giddiness 12/10/2012 CAD (coronary artery disease) Coronary atherosclerosis of unspecified type of vessel, lumbee or graft 12/10/2012 HTN (hypertension), malignant Essential hypertension, malignant 12/10/2012 Dyslipidemia Other and unspecified hyperlipidemia 12/10/2012 CAD (coronary artery disease) Coronary atherosclerosis of unspecified type of vessel, lumbee or graft 01/25/2013 HTN (hypertension), malignant Essential hypertension, malignant 01/25/2013 Dyslipidemia Other and unspecified hyperlipidemia 01/25/2013 Claudication Peripheral vascular disease, unspecified 03/19/2013 CAD (coronary artery disease) Coronary atherosclerosis of unspecified type of vessel, lumbee or graft 07/26/2013 HTN (hypertension), malignant Essential hypertension, malignant 07/26/2013 HTN (hypertension), malignant Essential hypertension, malignant 09/17/2013 ASHD (arteriosclerotic heart disease) Coronary atherosclerosis of unspecified type of vessel, lumbee or graft 09/17/2013 Dyslipidemia Other and unspecified hyperlipidemia 09/17/2013 CAD (coronary artery disease) Coronary atherosclerosis of unspecified type of vessel, lumbee or graft 01/27/2014 HTN (hypertension), malignant Essential [...] Coronary atherosclerosis of unspecified type of vessel, lumbee or graft 01/30/2015 SUSAN (obstructive sleep apnea) Obstructive sleep apnea (adult) (pediatric) 02/13/2015 Centrilobular emphysema (HCC) Other emphysema 02/13/2015 Obesity (BMI 30.0-34.9) Obesity, unspecified 02/13/2015 Obstructive sleep apnea Obstructive sleep apnea (adult) (pediatric) 04/01/2015 Coronary artery disease involving lumbee coronary artery of lumbee heart without angina pectoris 08/17/2015 HTN (hypertension), malignant Essential hypertension, malignant 08/17/2015 Dyslipidemia Other and unspecified hyperlipidemia 08/17/2015 Coronary artery disease involving lumbee coronary artery of lumbee heart without angina pectoris 12/19/2016 HTN (hypertension), malignant Essential hypertension, malignant 12/19/2016 Dyslipidemia Other and unspecified hyperlipidemia 12/19/2016 SUSAN (obstructive sleep apnea) Obstructive sleep apnea (adult) (pediatric) 12/19/2016 Coronary artery disease involving lumbee coronary artery of lumbee heart without angina pectoris 03/30/2017 HTN (hypertension), malignant Essential hypertension, malignant 03/30/2017 Dyslipidemia Other and unspecified hyperlipidemia 03/30/2017 SUSAN (obstructive sleep apnea) Obstructive sleep apnea (adult) (pediatric) 03/30/2017 Coronary artery disease involving lumbee coronary artery of lumbee heart without angina pectoris 10/26/2017 Benign essential HTN Essential hypertension, benign 10/26/2017 Dyslipidemia Other and unspecified hyperlipidemia 10/26/2017 Cerebral vascular disease Cerebrovascular disease, unspecified 10/26/2017 Coronary artery disease involving lumbee coronary artery of lumbee heart without angina pectoris 03/28/2018 HTN (hypertension), malignant Essential hypertension, malignant 03/28/2018 Cerebral vascular disease Cerebrovascular disease, unspecified 03/28/2018 Dyslipidemia Other and unspecified hyperlipidemia 03/28/2018 SUSAN (obstructive sleep apnea) Obstructive sleep apnea (adult) (pediatric) 03/28/2018 Coronary artery disease involving lumbee coronary artery of lumbee heart without angina pectoris 03/11/2019 HTN (hypertension), malignant Essential hypertension, malignant 03/11/2019 Dyslipidemia Other and unspecified hyperlipidemia 03/11/2019 Coronary artery disease involving lumbee coronary artery of lumbee heart without angina pectoris 03/11/2020 Essential hypertension Unspecified essential hypertension 03/11/2020 Dyslipidemia Other and unspecified hyperlipidemia 03/11/2020 SUSAN (obstructive sleep apnea) Obstructive sleep apnea (adult) (pediatric) 03/11/2020 Cerebral vascular disease Cerebrovascular disease, unspecified 03/11/2020 ASHD (arteriosclerotic heart disease) Coronary atherosclerosis of unspecified type of vessel, lumbee or graft 04/01/2021 TIA (transient ischemic attack) Unspecified transient cerebral ischemia 04/01/2021 ASHD (arteriosclerotic heart disease) Coronary atherosclerosis of unspecified type of vessel, lumbee or graft 09/14/2021 Essential hypertension Unspecified essential hypertension 09/14/2021 Pure hypercholesterolemia 09/14/2021 ASHD (arteriosclerotic heart disease) Coronary atherosclerosis of unspecified type of vessel, lumbee or graft 10/29/2021 TIA (transient ischemic attack) Unspecified transient cerebral ischemia 10/29/2021 ASHD (arteriosclerotic heart disease) Coronary atherosclerosis of unspecified type of vessel, lumbee or graft 10/29/2021 TIA (transient ischemic attack) Unspecified transient cerebral ischemia 10/29/2021 ASHD (arteriosclerotic heart disease) Coronary atherosclerosis of unspecified type of vessel, lumbee or graft 04/12/2022 Right knee pain, unspecified chronicity 01/05/2024 Right knee pain, unspecified chronicity 01/05/2024 Knee strain, right, initial encounter 01/05/2024 Chest pain Chest pain, unspecified 01/11/2012 Care Teams Automotive Brake Specialist Relationship Specialty Start Date End Date Seng Hall MD PCP - General Family Medicine 03/05/12
--- OUTSIDE RECORDS SUMMARY | 2024-12-30 16:07 | XMS_ITS | Clinical Summary ---
Author Organization [facility] Address [facility] [place] [address] Care Team Providers Care Pole Inspector Name Role Phone Seng Hall MD Primary Care Provider [phone] Source Comments This information has been disclosed [...] therelease of HIV test results or diagnoses. 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
--- OUTSIDE RECORDS SUMMARY | 2024-12-30 16:07 | XMS_ITS | Clinical Summary ---
Author Organization [facility] Address [facility] [place] [address] Care Team Providers Care Sound Assistant Name Role Phone Unavailable Primary Care Provider [...] 02/27/1996 [facility]-Zoster Vaccines (1 of 2) 2001 [id number] Vaccine ( season) 2024 08/08/2020, 07/11/2020 [facility]-Influenza Vaccine (#1) 01/13/202504/14, 03/17/2017, 03/04/2016, Additional history exists [facility]-RSV Vaccine: [...]
== END 2024-12-26 23:59 ==
LOC: LAB.DROPOF 12-30 16:05
PROVIDERS: PCP Family Medicine; Visit Provider Family Medicine
DX: M54.40 Lumbago with sciatica, unspecified side (principal); M46.90 Unspecified inflammatory spondylopathy, site unspecified; M25.559 Pain in unspecified hip
CPT/HCPCS: 80053; 83735; 84550; 85651; 86038; 86140; 86431